=== PATIENT | female | born 1990 | race Caucasian/White ===

== ENCOUNTER 2017-08-07 13:46 | Emergency (ER) | payer OTHER ==
[~2017-08-07] VITALS: Ht 170.2 cm; Wt 60.8 kg
[~2017-08-07 13:46] MED LIST: ACYCLOVIR400 MG; BACTRIM DS TAB1 EACH PO; CLARITIN10 MG PO; DILAUDID2 MG PO; DOXYCYCLINE HYC50 MG PO; HYDROCODON-ACE1 EA11 PO; HYDROCODON-ACE1 EA13 PO; KEFLEX500 MG PO; NEURONTIN100 MG PO; NORCO 5-325 TA1 EACH PO; PERCOCET 5-3251 EACH PO; PROMETHAZINE HC25 M1 PO; VICOPROFEN 2001 EACH PO; XULANE PATCH1 EACH TD; [UNRECOGNIZED DRUG - OTHER]
[2017-08-07] MEDS ORDERED: BACTROBAN15 GM TOP (14:08)
[2017-08-07] MEDS ORDERED: DURAGESIC1 EACH TD (14:21)
[2017-08-07] MEDS ORDERED: ZANAFLEX4 M1 PO (14:21)
[2017-08-07] MEDS ORDERED: AMITRIPTYLINE H25 MG PO (14:22)
[2017-08-07] MEDS ORDERED: ZONEGRAN100 MG PO (14:22)
[2017-08-07] MEDS ORDERED: TRAZODONE HCL50 MG PO (14:23)
[2017-08-07] MEDS ORDERED: ONDANSETRON ODT8 MG PO (14:24)
== END 2017-08-07 14:30 | disposition home or self-care (01) ==
LOC: ED 13:46
DX: Z48.817 Encounter for surgical aftercare following surgery on the skin and subcutaneous tissue (principal); Z90.49 Acquired absence of other specified parts of digestive tract; Z98.890 Other specified postprocedural states; Z87.891 Personal history of nicotine dependence; Z88.0 Allergy status to penicillin; Z88.1 Allergy status to other antibiotic agents; Z88.8 Allergy status to other drugs, medicaments and biological substances; Z88.5 Allergy status to narcotic agent
CPT/HCPCS: 99283

== ENCOUNTER 2017-11-23 10:45 | Emergency (ER) | payer OTHER ==
[~2017-11-23] VITALS: Ht 170.2 cm; Wt 63.5 kg
--- OUTSIDE RECORDS SUMMARY | ~2017-11-23 | XMS | Encounter Summary ---
Demographics + + + | Address | [address] | | | [place] [address] | + + + | Home Phone | | + + + | Preferred Language | Unknown | + + + | Marital Status | | + + + | Alevism Affiliation | Unknown | + + + | Race | Unknown | + + + | Ethnic Group | Unknown | + + + Author + + + | Author | [facility] | | | and [place] | + + + | Organization | [facility] | | | and [place] | + + + | Address | Unknown | + + + | Phone | Unavailable | + + + Support + + + + + | Name | Relationship | Address | Phone | + + + + + | Mg Saunders | ECON | [address] | | | | | [place] | | | | | [address] | | + + + + + Care Team Providers + +------+ + | Care Manager Rn Case Name | Role | Phone | + +------+ + | Denis Starks DO | PCP | | + +------+ + Reason for Visit + + + | Reason | Comments | + + + | Medication Refill | | + + + Encounter Details +--------+--------+ + + + | Date | Type | Department | Care Team | Description | +--------+--------+ + + + | 10/02/ | Refill | [facility] | Daljit Roman, | Medication Refill | | 2017 | | [address] | DO [address] | | | | | [address] | [address] [place], | | | | | [place] | [place] [address] | | | | | [address] | [phone] | | | | | [phone] | | | +--------+--------+ + + + Social History + +-------+ +--------+------+ | Tobacco Use | Types | Packs/Day | Years | Date | | | | | Used | | + +-------+ +--------+------+ | Never Smoker | | | | | + +-------+ +--------+------+ + +---+---+---+ | Smokeless Tobacco: | | | | | Never Used | | | | + +---+---+---+ + + +---------+ + | Alcohol Use | Drinks/We | oz/Week | Comments | | | ek | | | + + +---------+ + | No | | | | + + +---------+ + + + + | Sex Assigned at | Date Recorded | | | | + + + | Not on file | | + + + as of this encounter Functional Status + + + + | Functional Status | Response | Date of Assessment | + + + + | Are you deaf or do you have serious | No | 07/31/2017 | | difficulty hearing? | | | + + + + | Are you blind or do you have serious | No | 07/31/2017 | | difficulty seeing, even when wearing | | | | glasses? | | | + + + + | Do you have serious difficulty walking or | No | 07/31/2017 | | climbing stairs? (5 years old or older) | | | + + + + | Do you have difficulty dressing or bathing? | No | 07/31/2017 | | (5 years old or older) | | | + + + + | Because of a physical, mental, or emotional | No | 07/31/2017 | | condition, do you have difficulty doing | | | | errands alone such as visiting a doctor's | | | | office or shopping? [15 years old or | | | | older)] | | | + + + + + + + + | Cognitive Status | Response | Date of Assessment | + + + + | Because of a physical, mental, or emotional | No | 07/31/2017 | | condition, do you have serious difficulty | | | | concentrating, remembering, or making | | | | decisions? (5 years old or older) | | | + + + + as of this encounter Plan of Treatment Not on fileas of this encounter Visit Diagnoses + + | Diagnosis | + + | S/P spinal fusion | + + | Arthrodesis status | + +"
--- OUTSIDE RECORDS SUMMARY | ~2017-11-23 | XMS | Encounter Summary ---
Demographics + + + | Address | [address] | | | [place] [address] | + + + | Home Phone | | + + + | Preferred Language | Unknown | + + + | Marital Status | | + + + | Jain Affiliation | Unknown | + + + | Race | Unknown | + + + | Ethnic Group | Unknown | + + + Author + + + | Author | [facility] | | | and [place] | + + + | Organization | [facility] | | | and [place] | [...] [place] | | | | | [address] | | + + + + + Care Team Providers + +------+ + | Care [place] Grounds Superintendent Name | Role | Phone | + [...] Description | +--------+--------+ + + + | 09/03/ | Refill | [facility] | Daljit Roman, | Medication Refill | | 2017 | | [address] | DO [address] | | | | | [address] | [address] [place], | | | | | [place] | [place] [address] | | | | | [address] | [phone] | | | | | [phone] | | | +--------+--------+ + + + [...]
--- OUTSIDE RECORDS SUMMARY | ~2017-11-23 | XMS | Encounter Summary ---
Demographics + + + | Address | [address] | | | [place] [address] | + + + | Home Phone | | + + + | Preferred Language | Unknown | + + + | Marital Status | | + + + | Yazidi Affiliation | Unknown | + + + | Race | Unknown | + + + | Ethnic Group | Unknown | + + + Author + + + | Author | [facility] | | | and [place] | + + + | Organization | [facility] | | | and [place] [...] [place] | | | | | [address] | | + + + + + Care Team Providers + +------+ + | Care Radiology Specialist Name | Role | Phone | + +------+ + | Denis Starks DO | PCP | | + +------+ + Reason for Visit + + + | Reason | Comments | + + + | Lab Results | return call | + + + Encounter Details +--------+ + + + + | Date | Type | Department | Care Team | Description | +--------+ + + + + | 11/04/ | Telephone | [facility] | Ronnie Schultz MD | Lab Results (return | | 2018 | | [facility] | [address] | call ) | | | | CLINIC [address] | [place] | | | | | [address] [place], | [address] | | | | | [place] [address] | | | | | | [phone] | | | +--------+ + + + [...] on fileas of this encounter Visit Diagnoses Not on filein this encounter"
--- OUTSIDE RECORDS SUMMARY | ~2017-11-23 | XMS | Clinical Summary ---
Demographics + + + | Address | [address] | | | [place] [address] | + + + | Home Phone | | + + + | Preferred Language | Unknown | + + + | Marital Status | | + + + | Tenriism Affiliation | Unknown | + + + | Race | Unknown | + + + | Ethnic Group | Unknown | + + + Author + + + | Author | [facility] | | | and [place] | + + + | Organization | [facility] | | | and [place] | + + + | Address | Unknown | + + + | Phone | Unavailable | + + + Support + + + + + | Name | Relationship | Address | Phone | + + + + + | Mg Rodriguez | ECON | [address] | | | | | [place] | | | | | [phone] | | + + + + + Care Team Providers + +------+ + | Care Visual Basic Programmer Name | Role | Phone | + +------+ + | Denis Starks DO | PP | | + +------+ + Allergies + + + + + + | Active Allergy | Reactions | Severity | Noted | Comments | | | | | Date | | + + + + + + | Ciprofloxacin | Anaphylaxis | High | 11/12/19 | | | | | | 15 | | + + + + + + | Duloxetine | Rash | Medium | 06/05/20 | Burning sensation | | | | | 16 | on her face | + + + + + + | Erythromycin | Rash | Low | 11/12/19 | | | | | | 15 | | + + + + + + | Hydromorphone | Other (See Comments) | Medium | 11/12/19 | Headaches from the | | | | | 15 | pill form tolerates | | | | | | IV form | + + + + + + | Morphine | Other (See Comments) | Medium | 11/12/19 | Chest pain and | | | | | 15 | stomach pain from | | | | | | the pill form. IV | | | | | | form can tolerate | | | | | | but doesn't really | | | | | | work for her. | + + + + + + | Penicillins | Anaphylaxis | High | 11/12/19 | | | | | | 15 | | + + + + + + | Propofol | Other (See Comments) | High | 11/12/19 | Seizures. Pt | | | | | 15 | states she recently | | | | | | had propofol with no | | | | | | side effects or | | | | | | reaction. | + + + + + + | Vancomycin | Daniel, Other (See | Medium | 11/12/19 | Burning feels like | | | Comments) | | 15 | head is on fire | + + + + + + Current Medications + + + +---------+------+------+-------+ | Prescription | Sig. | Disp. | Refills | Star | End | Statu | | | | | | t | Date | s | | | | | | Date | | | + + + +---------+------+------+-------+ | SUMAtriptan | Take 100 mg by mouth | | | | | Activ | | (IMITREX) 100 mg | as needed for | | | | | e | | tablet | Migraine. | | | | | | + + + +---------+------+------+-------+ | zonisamide | Take 100 mg by mouth | | | /2 | | Activ | | (ZONEGRAN) 100 mg | 4 times daily. | | | 11/29 | | e | | capsule | | | | 17 | | | + + + +---------+------+------+-------+ | VENTOLIN HFA 108 | Inhale into the | | | 06/13 | | Activ | | (90 BASE) MCG/ACT | lungs every 4 hours | | | 08/31 | | e | | inhaler | as needed. | | | 16 | | | + + + +---------+------+------+-------+ | acyclovir | Apply topically as | | | 02/0 | | Activ | | (ZOVIRAX) 5% | needed. | | | 05/01 | | e | | ointment | | | | 17 | | | + + + +---------+------+------+-------+ | nortriptyline | Take 25 mg by mouth | | | | | Activ | | (PAMELOR) 25 mg | 3 times daily. | | | | | e | | capsule | | | | | | | + + + +---------+------+------+-------+ | TRAZODONE HCL PO | Take by mouth as | | | | | Activ | | | needed. | | | | | e | + + + +---------+------+------+-------+ | tiZANidine | Take 1-2 tablets by | 90 | 0 | 12/2 | | Activ | | (ZANAFLEX) 4 mg | mouth every 8 hours. | tablet | | 0/20 | | e | | tablet | | | | 17 | | | + + + +---------+------+------+-------+ | ondansetron | Take 4 mg by mouth 3 | | | 01/2 | | Activ | | (ZOFRAN) 8 MG tablet | times daily. | | | 5/20 | | e | | | | | | 18 | | | + + + +---------+------+------+-------+ | polyethylene | Take 175 g by mouth | | | 02/0 | | Activ | | glycol (MIRALAX) | 2 times daily. | | | 4/20 | | e | | powder | | | | 18 | | | + + + +---------+------+------+-------+ | lactulose 10 g/15 | Take 30 mLs by mouth | 240 mL | 2 | 03/3 | | Activ | | mL solution | 2 times daily. For | | | 0/20 | | e | | | constipation | | | 18 | | | + + + +---------+------+------+-------+ | | Take 1 tablet by | 56 | 0 | 04/0 | 04/2 | Activ | | HYDROcodone-acetamin | mouth every 6 hours | tablet | | 9/20 | 3/20 | e | | ophen (NORCO) 10-325 | as needed for Pain | | | 18 | 18 | | | mg per | for up to 14 days. | | | | | | | tabletIndications: | | | | | | | | S/P spinal fusion | | | | | | | + + + +---------+------+------+-------+ | lactulose 10 g/15 | Take 30 mLs by mouth | 240 mL | 2 | 12/2 | 03/3 | Disco | | mL solution | 2 times daily. For | | | 0/20 | 0/20 | ntinu | | | constipation | | | 17 | 18 | ed | + + + +---------+------+------+-------+ | | Take 1-2 tablets by | 120 | 0 | 03/0 | 03/2 | Disco | | HYDROcodone-acetamin | mouth every 4 hours | tablet | | 7/20 | 0/20 | ntinu | | ophen (NORCO) 10-325 | as needed for Pain. | | | 18 | 18 | ed | | mg per | | | | | | | | tabletIndications: | | | | | | | | S/P spinal fusion | | | | | | | + + + +---------+------+------+-------+ | | Take 1-2 tablets by | 120 | 0 | 03/2 | 04/0 | Disco | | HYDROcodone-acetamin | mouth every 4 hours | tablet | | 0/20 | 3/20 | ntinu | | ophen (NORCO) 10-325 | as needed for Pain. 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 Rivers 02/03/13.Dx name changed | | by system update 05/03/2017 | | | |Dx name changed by system update 05/03/2017 | + + + + + | Degeneration of lumbar or lumbosacral intervertebral disc | 02/23/2013 | + + + + + | Overview: Overview: | | per Karen Rivers) | + + + + + | Thoracic neuritis | 02/23/2013 | + + + + + | Overview: Overview: | | per Ortho Gamaliel Rivers) | + + + + + | Pain in joint, lower leg | 12/24/2012 | + + + | Calculus of kidney | 07/15/2012 | + + + + + | Overview: Overview: Suspected renal colic during , | | severe back pains assoc w/ hematuria. | + + Encounters +--------+ + + + + | Date | Type | Specialty | Care Team | Description | +--------+ + + + + | 11/20/ | Office | | Richard Saravia | Chronic pain | | 2018 | Visit | | SONIA Davidson | syndrome (Primary | | | | | | Dx); Lumbar | | | | | | spondylosis; | | | | | | Thoracic spinal | | | | | | stenosis; Back pain, | | | | | | unspecified back | | | | | | location, | | | | | | unspecified back | | | | | | pain laterality, | | | | | | unspecified | | | | | | chronicity; | | | | | | Degeneration of | | | | | | lumbar or | | | | | | lumbosacral | | | | | | intervertebral disc; | | | | | | Neuropathy | +--------+ + + + + | 11/20/ | Refill | | Ronnie Schultz MD | Medication Refill | | 2017 | | | | | +--------+ + + + + | 11/18/ | Telephone | | Daljit Roman, | Coordination Of Care | | 2018 | | | DO | (Neurologist/ pain | | | | | | management) | +--------+ + + + + | 11/12/ | Refill | | Ronnie Schultz MD | Medication Refill | | 2017 | | | | | +--------+ + + + + | 11/08/ | Office | | Aman Menezes, | Jona (Primary Dx) | | 2017 | Visit | | PA | | +--------+ + + + + | 11/06/ | Telephone | | Ronnie Schultz MD | Pain Management | | 2017 | | | | | +--------+ + + + + | 11/04/ | Telephone | | Ronnie Schultz MD | Lab Results (return | | 2017 | | | | call ) | +--------+ + + + + | 10/29/ | Office | | Daljit Roman, | Thoracic myelopathy | | 2018 | Visit | | DO | (Primary Dx); S/P | | | | | | fusion of thoracic | | | | | | spine; S/P spinal | | | | | | fusion | +--------+ + + + + | 10/29/ | Hospital | | Aman Menezes, | S/P fusion of | | 2017 | Encounter | | PA | thoracic spine | +--------+ + + + + | 10/16/ | Refill | | Daljit Roman, | Medication Refill | | 2017 | | | DO | | +--------+ + + + + | 10/14/ | Telephone | | Daljit Roman, | Post-op Problem | | 2017 | | | DO | | +--------+ + + + + | 10/02/ | Refill | | Daljit Roman, | Medication Refill | | 2017 | | | DO | | +--------+ + + + + | 09/24/ | Office | | Ronnie Schultz MD | Degeneration of | | 2018 | Visit | | | lumbar or | | | | | | lumbosacral | | | | | | intervertebral disc | | | | | | (Primary Dx); Lumbar | | | | | | spondylosis; | | | | | | Chronic pain | | | | | | syndrome | +--------+ + + + + | 09/17/ | Refill | | Daljit Roman, | Medication Refill | | 2017 | | | DO | | +--------+ + + + + | 09/03/ | Refill | | Daljit Roman, | Medication Refill | | 2017 | | | DO | | +--------+ + + + + | 08/28/ | Office | | Aman Menezes, | S/P fusion of | | 2018 | Visit | | PA | thoracic spine | | | | | | (Primary Dx) | +--------+ + + + + | 08/28/ | Hospital | | Daljit Roman, | Status post cervical | | 2018 | Encounter | | DO | spinal fusion; | | | | | | Cervical | | | | | | radiculopathy | +--------+ + + + + | 08/28/ | Hospital | | Daljit Roman, | Status post thoracic | | 2018 | Encounter | | DO | spinal fusion; | | | | | | Spondylosis with | | | | | | myelopathy, thoracic | | | | | | region | +--------+ + + + + from Last 3 Months Immunizations + + + + | Name | Dates Previously Given | Next Due | + + + + | INFLUENZA PF | 06/08/2015 | | | QUAD(PED/ADOL/ADULT) | | | | ,PSKT or VIAL | | | + + + + Family History + + +------+ + | Medical History | Relation | Name | Comments | + + +------+ + | Diabetes | Father | | | + + +------+ + | Arthritis | Mother | | | + + +------+ + | Cancer | Mother | | | + + +------+ + | Crohn's disease | Mother | | | + + +------+ + | Heart disease | Mother | | and Father | + + +------+ + | Hypertension | Mother | | and Father | + + +------+ + | Stroke | Mother | | | + + +------+ + + +------+--------+ + | Relation | Name | Status | Comments | + +------+--------+ + | Father | | | | + +------+--------+ + | Mother | | | | + +------+--------+ + Social History + +-------+ +--------+------+ | [...] on file | | + + + Last Filed Vital Signs + + + + | Vital Sign | Reading | Time Taken | + + + + | Blood Pressure | 104/60 | 11/20/2017 1329 PDT | + + + + | Pulse | 108 | 11/20/2017 1329 PDT | + + + + | Temperature | 35.7 C (96.2 F) | 08/08/2017 1315 PST | + + + + | Respiratory Rate | 16 | 11/20/20171328 PDT | + + + + | Oxygen Saturation | 100% | 11/20/20171328 PDT | + + + + | Inhaled Oxygen | - | - | | Concentration | | | + + + + | Weight | 62.1 kg (137 lb) | 11/20/20171328 PDT | + + + + | Height | 170.2 cm (5' 7") | 11/20/20171328 PDT | + + + + | Body Mass Index | 21.46 | 11/20/20171328 PDT | + + + + Plan of Treatment + + + + + | Health Maintenance | Due Date | Last Done | Comments | + + + + + | Vaccine: HPV (3 of 3 | | 01/12/2013, 10/29/2012 | | | - Female 3 Dose | 3 | | | | Series) | | | | + + + + + | CERVICAL CANCER | | | | | SCREENING (PAP EVERY | 4 | | | | 3 YEARS 21-64 ) | | | | + + + + + | Vaccine: Influenza | | 12/26/2016, 06/08/2015, | | | (Season Ended) | 8 | 05/22/2012 | | + + + + + | Vaccine: | | 07/27/2013 | | | Dtap/Tdap/Td (2 - | 3 | | | | Td) | | | | + + + + + Implants + +--------+--------+ +--------+--------+--------+ | Implanted | Type | Area | Manufacture | Device | Expira | Model | | | | | r | | tion | / | | | | | | Identi | Date | Serial | | | | | | fier | | / Lot | + +--------+--------+ +--------+--------+--------+ | Putty Bone Dbm Grftn 0.5cc - | Bone | N/A: | [employer] - | | 08/29/ | [id number] | | [id number]: Qty: 1 on | | Spine | MEDT | | 2019 | | | 12/14/2016 by Daljit Roman | | Max | | | | /[id number] | | DO Silvina | | al | | | | 7-162 | | | | | | | | / | + +--------+--------+ +--------+--------+--------+ | Putty Bone Dbm Grftn 0.5cc - | Bone | N/A: | [employer] - | | 08/29/ | [id number] | | [id number]: Qty: 1 on | | Spine | MEDT | | 2019 | | | 12/14/2016 by Daljit Roman | | Cervic | | | | /[id number] | | DO Silvina | | al | | | | 7-155 | | | | | | | | / | + +--------+--------+ +--------+--------+--------+ | Bone Canc 6-10mm 30cc - | Bone | N/A: | [employer] - | | 11/30/ | [id number] | | [id number]: Qty: 1 | | Thorac | MEDT | | 2021 | | | on 07/26/2017 by Abel, | | ic | | | | /[id number] | | Daljit Cool DO | | | | | | 4-022 | | | | | | | | / | + +--------+--------+ +--------+--------+--------+ | Imp Spn Elizabeth Peek [id number] - | Generi | N/A: | [employer] - | | 03/23/ | [id number] | | [id number]: Qty: 1 | c | Spine | MEDT | | 2023 | 1 / | | on 12/14/2016 by Abel, | | Cervic | | | | /12CG | | Daljit Cool DO | | al | | | | | + +--------+--------+ +--------+--------+--------+ | Imp Spn Elizabeth Peek [id number] - | Generi | N/A: | [employer] - | | 04/27/ | [id number] | | [id number]: Qty: 1 | c | Spine | MEDT | | 2023 | 1 / | | on 12/14/2016 by Abel, | | Cervic | | | | /67CM | | Daljit Cool DO | | al | | | | | + +--------+--------+ +--------+--------+--------+ | Imp Spn Spcr Cpstn 7x22mm - | Generi | N/A: | [employer] - | | 10/02/ | [id number] | | [id number]: Qty: 1 on | c | Thorac | MEDT | | 2024 | 2 / | | 07/26/2017 by Daljit Roman | | ic | | | | /[id number] | | DO Silvina | | | | | | 432 | + +--------+--------+ +--------+--------+--------+ | Imp Spn Spcr Cpstn 7x22mm - | Generi | N/A: | [employer] - | | 12/13/ | 147867 | | [id number]: Qty: 1 on | c | Thorac | MEDT | | 2023 | 2 / | | 07/26/2017 by Daljit Roman | | ic | | | | /[id number] | | A, DO | | | | | | 374 | + +--------+--------+ +--------+--------+--------+ | Imp Spn [address] 4.01x694ss - | Generi | N/A: | [employer] - | | | 179730 | | [id number]: Qty: 2 on | c | Thorac | MEDT | | | 6130 / | | 07/26/2017 by Daljit Roman | | ic | | | | / | | A, DO | | | | | | | + +--------+--------+ +--------+--------+--------+ | Putty Kaitlyn 10cc Dbm - | Graft | N/A: | [employer] - | | 05/15/ | [id number] | | [id number]: Qty: 1 | | Thorac | MEDT | | 2020 | | | on 07/26/2017 by Abel, | | ic | | | | /[id number] | | Daljit Cool DO | | | | | | 4-013 | | | | | | | | / | + +--------+--------+ +--------+--------+--------+ | Graft Infuse Bone Kit Xs - | Graft | N/A: | [employer] - | | 08/11/ | [id number] | | [id number]: Qty: 1 on | | Thorac | MEDT | | 2017 | 0 / | | 07/26/2017 by Daljit Roman | | ic | | | | /[id number] | | DO Silvina | | | | | | 29AAM | + +--------+--------+ +--------+--------+--------+ | Plate Ant Buhl Masoud | Plate | N/A: | [employer] - | | | [id number] | | 42.5mm - [id number]: | | Spine | MEDT | | | 2 / / | | Qty: 1 on 12/14/2016 by | | Max | | | | | | Daljit Roman DO | | al | | | | | + +--------+--------+ +--------+--------+--------+ | Screw Slf-Drl V/A 4.0x14mm - | Screw | N/A: | [facility] | | | [id number] | | [id number]: Qty: 6 on | | Spine | JADEEK - DIV | | | 4 / / | | 12/14/2016 by Daljit Roman | | Cervic | [employer] | | | | | A, DO | | al | - SFDK | | | | + +--------+--------+ +--------+--------+--------+ | Screw Eder Solera 5.5x40mm - | Screw | N/A: | [employer] - | | | 143930 | | [id number]: Qty: 1 on | | Thorac | MEDT | | | 75278 | | 07/26/2017 by Daljit Roman | | ic | | | | / / | | A, DO | | | | | | | + +--------+--------+ +--------+--------+--------+ | Screw Eder Solera 5.5x45mm - | Screw | N/A: | [employer] - | | | 799512 | | [id number]: Qty: 3 on | | Thorac | MEDT | | | 30666 | | 07/26/2017 by Daljit Roman | | ic | | | | / / | | A, DO | | | | | | | + +--------+--------+ +--------+--------+--------+ | Screw Mas G5 Slra 7.5x40 Cn - | Screw | N/A: | [employer] - | | | 424908 | | [id number]: Qty: 1 | | Thorac | MEDT | | | 35463 | | on 07/26/2017 by Abel, | | ic | | | | / / | | Daljit Cool DO | | | | | | | + +--------+--------+ +--------+--------+--------+ | Screw Eder Solera 6.5x40mm - | Screw | N/A: | [employer] - | | | 321311 | | [id number]: Qty: 1 on | | Thorac | MEDT | | | 02568 | | 07/26/2017 by Daljit Roman | | ic | | | | / / | | DO Silvina | | | | | | | + +--------+--------+ +--------+--------+--------+ | Screw Eder Solera 6.5x45mm - | Screw | N/A: | [employer] - | | | 118241 | | [id number]: Qty: 1 on | | Thorac | MEDT | | | 25967 | | 07/26/2017 by Daljit Roman | | ic | | | | / / | | A DO | | | | | | | + +--------+--------+ +--------+--------+--------+ | Set Scrw Ns G5 Brk Off Ti | Screw | N/A: | [employer] - | | | 695057 | | 4.75 - [id number]: | | Thorac | MEDT | | | 0 / / | | Qty: 10 on 07/26/2017 by | | ic | | | | | | Daljit Roman DO | | | | | | | + +--------+--------+ +--------+--------+--------+ | Chips Cancellous 15cc - | | N/A: | [employer] - | | 09/08/ | 329798 | | [id number]: Qty: 1 | | Back | OSTT | | 2020 | | | on 12/16/2014 by Abel, | | | | | | /[id number] | | Daljit Cool DO | | | | | | 0-036 | | | | | | | | / | + +--------+--------+ +--------+--------+--------+ | Screw Slra Johant 7.5.55 - | | N/A: | [employer] - | | | 028088 | | [id number]: Qty: 1 on | | Back | MEDT | | | 20262 | | 12/16/2014 by Daljit Roman | | | | | | / / | | A, DO | | | | | | | + +--------+--------+ +--------+--------+--------+ | Imp Spn Nicholas Sext Ti | | N/A: | [facility] | | | 405278 | | 4.63lixf25 - | | Back | DANEK - DIV | | | 5070 / | | [id number]: Qty: 1 on | | | [employer] | | | / | | 12/16/2014 by Daljit Roman | | | - SFDK | | | | | Silvina DO | | | | | | | + +--------+--------+ +--------+--------+--------+ | Imp Spn Nicholas Sext Ti 4.60u38ye | | N/A: | [facility] | | | 121501 | | - [id number]: Qty: 1 | | Back | DANEK - DIV | | | 5075 / | | on 12/16/2014 by Abel, | | | [employer] | | | / | | Daljit Cool DO | | | - SFDK | | | | + +--------+--------+ +--------+--------+--------+ | Set Scrw Ns G5 Brk Off Ti | | N/A: | [facility] | | | 277187 | | 4.75 - [id number]: | | Back | DANEK - DIV | | | 0 / / | | Qty: 5 on 12/16/2014 by | | | [employer] | | | | | Daljit Roman DO | | | - SFDK | | | | + +--------+--------+ +--------+--------+--------+ | Chips Cancellous 15cc - | | N/A: | [employer] - | | 10/07/ | 272785 | | [id number]: Qty: 1 | | Back | OSTT | | 2020 | | | on 12/16/2014 by Abel, | | | | | | /[id number] | | Daljit Cool DO | | | | | | 8-032 | | | | | | | | / | + +--------+--------+ +--------+--------+--------+ | Graft Infuse Bone Kit Xs - | | N/A: | [facility] | | 01/09/ | 716810 | | [id number]: Qty: 1 on | | Back | DANEK - DIV | | 2016 | 0 / | | 12/16/2014 by Daljit Roman | | | [employer] | | | /[id number] | | DO Silvina | | | - SFDK | | | 47AAD | + +--------+--------+ +--------+--------+--------+ | Imp Spn Spcr [place] [id number] | | N/A: | [employer] - | | 10/14/ | 535469 | | - [id number]: Qty: 1 | | Back | MEDT | | 2022 | 1 / | | on 12/16/2014 by Abel, | | | | | | /[id number] | | Daljit Cool DO | | | | | | 018 | + +--------+--------+ +--------+--------+--------+ | Algyaimat Putty Kaitlyn 5cc Dbm | | N/A: | [facility] - | | 06/07/ | 45173 | | - [id number]: Qty: 1 | | Back | OSTT | | 2016 | /[id number] | | on 12/16/2014 by Abel, | | | | | | 4034 / | | Daljit Cool DO | | | | | | | + +--------+--------+ +--------+--------+--------+ | Chips Cancellous 15cc - | | N/A: | [facility] - | | 10/11/ | 250771 | | [id number]: Qty: 1 | | Back | OSTT | | 2020 | | | on 12/16/2014 by Abel, | | | | | | /[id number] | | Daljit Cool DO | | | | | | 0-010 | | | | | | | | / | + +--------+--------+ +--------+--------+--------+ | Imp Spn Spcr [place] [id number] | | N/A: | [employer] - | | 07/23/ | 153989 | | - [id number]: Qty: 1 | | Back | MEDT | | 2021 | 2 / | | on 12/16/2014 by Abel, | | | | | | /[id number] | | Daljit Cool DO | | | | | | 516 | + +--------+--------+ +--------+--------+--------+ | Screw Eder Solera 6.5x55mm - | | N/A: | [facility] | | | [id number] | | [id number]: Qty: 2 on | | Back | DANEK - DIV | | | 46471 | | 12/16/2014 by Daljit Roman | | | [employer] | | | / / | | DO Silvina | | | - SFDK | | | | + +--------+--------+ +--------+--------+--------+ | Screw Mas G5 Slra 7.5x45 Cn - | | N/A: | [facility] | | | 299791 | | [id number]: Qty: 2 | | Back | DANEK - DIV | | | 08248 | | on 12/16/2014 by Abel, | | | [employer] | | | / / | | Daljit Cool DO | | | - SFDK | | | | + +--------+--------+ +--------+--------+--------+ | Bone Chips 15cc - | | N/A: | [employer] | | 12/02/ | 801971 | | [id number]: Qty: 1 | | Spine | RED CROSS - | | 2020 | | | on 06/03/2015 by Abel, | | Thorac | AMRR | | | /[id number] | | Daljit Cool DO | | ic | | | | 7-017 | | | | | | | | / | + +--------+--------+ +--------+--------+--------+ | Putty [place] 10cc Dbm - | | N/A: | [facility] - | | 03/03/ | 40150 | | [id number]: Qty: 1 | | Spine | OSTT | | 2017 | /[id number] | | on 06/03/2015 by Abel, | | Thorac | | | | 4-013 | | Daljit Cool DO | | ic | | | | / | + +--------+--------+ +--------+--------+--------+ | Graft Infuse Bone Kit Xs - | | N/A: | [facility] | | 05/04/ | 850479 | | [id number]: Qty: 1 on | | Spine | DANEK - DIV | | 2015 | 0 / | | 06/03/2015 by Daljit Roman | | Thorac | [employer] | | | /[id number] | | DO Silvina | | ic | - SFDK | | | 84AAD | + +--------+--------+ +--------+--------+--------+ | Imp Spn Spcr Cpstn 7x22mm - | | N/A: | [facility] | | 12/02/ | [id number] | | [id number]: Qty: 1 on | | Spine | DANEK - DIV | | 2022 | 2 / | | 06/03/2015 by Daljit Roman | | Thorac | [facility] | | | [id number] | | A DO | | ic | - SFDK | | | 208 | + +--------+--------+ +--------+--------+--------+ | Nicholas Perc Str Ccm-Pls 4.81t322 | | N/A: | [facility] - | | | [id number] | | - [id number]: Qty: 1 | | Spine | MEDT | | | 6120 / | | on 06/03/2015 by Abel, | | Thorac | | | | / | | Daljit Cool DO | | ic | | | | | + +--------+--------+ +--------+--------+--------+ | Imp Spn Nicholas Ti Sext Ti 5.5x45 | | N/A: | [facility] | | | [id number] | | - [id number]: Qty: 1 | | Spine | DANEK - DIV | | | 5045 / | | on 06/03/2015 by Abel, | | Thorac | [facility] | | | / | | Daljit Cool DO | | ic | - SFDK | | | | + +--------+--------+ +--------+--------+--------+ | Screw Eder Solera 5.5x35mm - | | N/A: | [facility] - | | | [id number] | | [id number]: Qty: 1 on | | Spine | MEDT | | | 25074 | | 06/03/2015 by Daljit Roman | | Thorac | | | | / / | Daniela Cool DO | | ic | | | | | + +--------+--------+ +--------+--------+--------+ | Screw Eder Solera 5.5x40mm - | | N/A: | [facility] | | | [id number] | | [id number]: Qty: 1 on | | Spine | DANEK - DIV | | | [id number] | | 06/03/2015 by Daljit Roman | | Thorac | [facility] | | | / / | | A, DO | | ic | - SFDK | | | | + +--------+--------+ +--------+--------+--------+ | Screw Eder Solera 5.5x45mm - | | N/A: | [facility] | | | [id number] | | [id number]: Qty: 3 on | | Spine | DANEK - DIV | | | [id number] | | 06/03/2015 by Daljit Roman | | Thorac | [facility] | | | / / | | A, DO | | ic | - SFDK | | | | + +--------+--------+ +--------+--------+--------+ | Set Scrw Ns G5 Brk Off Ti | | N/A: | [facility] | | | [id number] | | 4.75 - [id number]: | | Spine | DANEK - DIV | | | 0 / / | | Qty: 5 on 06/03/2015 by | | Thorac | [facility] | | | | | Daljit Roman DO | | ic | - SOMDK | | | | + +--------+--------+ +--------+--------+--------+ + +-------+--------+ +--------+--------+--------+ | Explanted | Type | Area | Manufacture | Device | Expira | Model | | | | | r | | tion | / | | | | | | Identi | Date | Serial | | | | | | fier | | / Lot | + +-------+--------+ +--------+--------+--------+ | Screw Eder Solera 6.5x40mm - | Screw | N/A: | [employer] - | | | [id number] | | [id number]: Qty: 1 on | | Thorac | MEDT | | | [id number] | | 07/26/2017 | | ic | | | | / / | + +-------+--------+ +--------+--------+--------+ Results Drugs of Abuse, Screen, Urine (11/20/20171310) + + + + | Component | Value | Ref Range | + + + + | Cannabinoids Screen, | Positive (A) | Negative | | Urine | | | + + + + | Cocaine Screen, | Negative | Negative | | Urine | | | + + + + | Phencyclidine | Negative | Negative | | Screen, Urine | | | + + + + | Methamphetamine | Negative | Negative | | Screen, Urine | | | + + + + | Opiates Screen, | Negative | Negative | | Urine | | | + + + + | Amphetamine Screen, | Negative | Negative | | Urine | | | + + + + | Benzodiazepines, | Negative | Negative | | Urine, Screen | | | + + + + | TCA | Positive (A) | Negative | + + + + | Methadone Screen, | Negative | Negative | | Urine | | | + + + + | Barbiturates Screen, | Negative | Negative | | Urine | | | + + + + | Oxycodone Screen, | Negative | Negative | | Urine | | | + + + + | Propoxyphene Screen, | Negative | Negative | | Urine | | | + + + + | Buprenorphine | Negative | Negative | | screen, Urine | | | + + + + + + + | Specimen | Performing Laboratory | + + + | Urine | [facility] [address], | | | [place] [address] | + + + + + | Narrative | + + | Urine Drug Screen Threshold concentrations | | AMPHETAMINE 500 ng/mL | | BARBITURATES 200 ng/mL | | BENZODIAZEPINES 150 ng/mL | | BUPRENORPHINE 10 ng/mL | | COCAINE 150 ng/mL | | METHAMPHETAMINES 500 ng/mL | | METHADONE 200 ng/mL | | OPIATES 100 ng/mL | | OXYCODONE 100 ng/mL | | PHENCYCLIDINE 25 ng/mL | | PROPOXYPHENE 300 ng/mL | | CANNABINOIDS 50 ng/mL TRICYCLIC | | ANTIDEPRES 300 ng/mL | + + XR Thoracic Spine 3 Vw (10/29/2017 1208) + + | Narrative | + + | TWO VIEWS THORACIC SPINE 10/29/2017 12:08 PM CLINICAL HISTORY: Status post thoracic | | fusion COMPARISON: RADIOGRAPHS AUGUST 28 AND MORE REMOTE IMAGING FINDINGS: | | Leftward thoracic curvature persists. Posterior nicholas and pedicle screw fusion | | hardware persists within five adjacent levels of the upper to mid thoracic spine and | | appears stable and intact. Interbody prostheses persist at three of these levels and | | also appear stable. Vertebral height is maintained and no spondylolisthesis is | | evident. Imaged thoracic cage is unremarkable. Cholecystectomy clips are again | | suggested. Imaged intrathoracic and upper abdominal structures are otherwise | | unremarkable. IMPRESSION - 1. LEFTWARD THORACIC CURVATURE WITH STABLE CHANGES OF | | UPPER TO MID THORACIC FUSION. Dictated and Signed by: Flash García MD | | Electronically signed: 10/29/2017 1:08 PM | + + + + | Procedure Note | + + | Yash, Rad Results In - 10/29/2017 1311 PDT TWO VIEWS THORACIC SPINE 10/29/2017 12:08 PM | | | | CLINICAL HISTORY: Status post thoracic fusion | | | | COMPARISON: RADIOGRAPHS AUGUST 28 AND MORE REMOTE IMAGING | | | | FINDINGS: Leftward thoracic curvature persists. Posterior nicholas and pedicle screw | | fusion hardware persists within five adjacent levels of the upper to mid | | thoracic spine and appears stable and intact. Interbody prostheses persist at | | three of these levels and also appear stable. Vertebral height is maintained | | and no spondylolisthesis is evident. Imaged thoracic cage is unremarkable. | | Cholecystectomy clips are again suggested. Imaged intrathoracic and upper | | abdominal structures are otherwise unremarkable. | | | | IMPRESSION - | | 1. LEFTWARD THORACIC CURVATURE WITH STABLE CHANGES OF UPPER TO MID THORACIC | | FUSION. | | | | Dictated and Signed by: Flash García MD | | Electronically signed: 10/29/2017 1:08 PM | + + XR Cervical Spine 2 or 3 Views (08/28/2017 1411) + + | Narrative | + + | CLINICAL INFORMATION: S/P Cervical Fusion. COMPARISON: 03/28/2017 FINDINGS: | | AP and lateral views of the cervical spine. Anterior screw plate fusion changes at | | C4-C6 with stable appearance of the interbody graft markers. No evidence of hardware | | complication. Stable cervical spine alignment. Stable height of the vertebral | | bodies. Prevertebral soft tissues have a normal appearance. Thoracic spinal | | fusion changes are noted. IMPRESSION - No evidence of interval complication. | | Dictated and Signed by: Desmond Chambers MD Electronically signed: 08/28/2017 3:01 PM | | | + + + + | Procedure Note | + + | Yash, Rad Results In - 08/28/2017 1504 PST CLINICAL INFORMATION: S/P Cervical Fusion. | | | | COMPARISON: 03/28/2017 | | | | FINDINGS: | | AP and lateral views of the cervical spine. | | | | Anterior screw plate fusion changes at C4-C6 with stable appearance of the | | interbody graft markers. No evidence of hardware complication. | | | | Stable cervical spine alignment. Stable height of the vertebral bodies. | | | | Prevertebral soft tissues have a normal appearance. | | | | Thoracic spinal fusion changes are noted. | | | | | | IMPRESSION - No evidence of interval complication. | | | | Dictated and Signed by: Desmond Chambers MD | | Electronically signed: 08/28/2017 3:01 PM | + + XR Thoracic Spine 2 Vw (08/28/2017 1410) + + | Narrative | + + | CLINICAL INFORMATION: S/P Thoracic Fusion. COMPARISON: 07/26/2017. | | FINDINGS: AP and lateral views of the thoracic spine. Posterior pedicle | | screw and nicholas fusion changes at T3-T7 with stable positioning of the interbody graft | | spacers at T3-T4, T4-T5, and T6-T7. No evidence of hardware complication. Normal | | height of the vertebral bodies. Slight dextrocurvature of the thoracic spine. | | Lower cervical spine fusion changes. IMPRESSION - No evidence of interval | | complication. Dictated and Signed by: Desmond Chambers MD Electronically signed: | | 08/28/2017 2:59 PM | + + + + | Procedure Note | + + | Williams Berrios Results In - 08/28/2017 1502 PST CLINICAL INFORMATION: S/P Thoracic Fusion. | | | | COMPARISON: 07/26/2017. | | | | FINDINGS: | | AP and lateral views of the thoracic spine. | | | | Posterior pedicle screw and nicholas fusion changes at T3-T7 with stable positioning | | of the interbody graft spacers at T3-T4, T4-T5, and T6-T7. No evidence of | | hardware complication. | | | | Normal height of the vertebral bodies. Slight dextrocurvature of the thoracic | | spine. | | | | Lower cervical spine fusion changes. | | | | | | IMPRESSION - No evidence of interval complication. | | | | Dictated and Signed by: Desmond Chambers MD | | Electronically signed: 08/28/2017 2:59 PM | + + from Last 3 Months Insurance + +--------+ +--------+ +---------+ | Payer | Benefi | Subscriber | Type | Phone | Address | | | t Plan | ID | | | | | | / | | | | | | | Group | | | | | + +--------+ +--------+ +---------+ | [employer] | MODA | xxxxxxxx | Medica | +- | | | MEDICAID HMO | HEALTH | | id | [id number] | | | | [place] | | | | [place] | | | | | + +--------+ +--------+ +---------+ | [employer] | MODA | [id number] | Medica | +- | | | MEDICAID HMO | HEALTH | | id | [id number] | | | | [place] | | | | | | [place] | | | | | + +--------+ +--------+ +---------+ + +--------+ +--------+ + + | Guarantor Name | Accoun | Relation to | Date | Phone | Billing Address | | | t Type | Patient | of | | | | | | | | | | + +--------+ +--------+ + + | YING RODRIGUEZ | Person | Self [birth year] Home: | [address] | | [place] | al/Fam | | 1990 | [phone] | [place], [place] | | | hernandez | | | [phone] | [phone] | + +--------+ +--------+ + + | YING RODRIGUEZ | Person | Self [birth year] | Home: | [address] | | [place] | al/Fam | | 1990 | [phone] | [place], [place] | | | [place]nandez | | | [phone] | [phone] | + +--------+ +--------+ + +
--- OUTSIDE RECORDS SUMMARY | ~2017-11-23 | XMS | Encounter Summary ---
Demographics + + + | Address | [address] | | | [place] [address] | + + + | Home Phone | | + + + | Preferred Language | Unknown | + + + | Marital Status | | + + + | Zoroastrianism Affiliation | Unknown | + + + | Race | Unknown | + + + | Ethnic Group | Unknown | + + + Author + + + | Author | [facility] | | | and [place] | + + + | Organization | [facility] | | | and [place] [...] [place] | | | | | [address] | | + + + + + Care Team Providers + +------+ + | Care Commercial Tire Service Technician Name | Role | Phone | + +------+ + | Denis Starks DO | PCP | | + +------+ + Reason for Visit + + + | Reason | Comments | + + + | Post-op Problem | | + + + Encounter Details +--------+ + + + + | Date | Type | Department | Care Team | Description | +--------+ + + + + | 10/14/ | Telephone | [facility] | Daljit Roman, | Post-op Problem | | 2018 | | NEUROSURGERY [address] | DO [address] | | | | | [address] | [address] [place], | | | | | [place], [place] | [place] [address] | | | | | [address] | [phone] | | | | | [phone] | | | +--------+ + + + [...]
--- OUTSIDE RECORDS SUMMARY | ~2017-11-23 | XMS | Encounter Summary ---
Demographics + + + | Address | [address] | | | [place] [address] | + + + | Home Phone [...] Author | [facility] | | | and [place] | + + + | Organization | [facility] | | | and [place] [...] [place] | | | | | [address] | | + + + + + Care Team Providers + +------+ + | Care Shaker Washer Name | Role | Phone | + +------+ + | Denis Starks DO | PCP | | + +------+ + Reason for Visit + + + | Reason | Comments | + + + | Pain Management | | + + + Encounter Details +--------+ + + + + | Date | Type | Department | Care Team | Description | +--------+ + + + + | 11/06/ | Telephone | [facility] | Ronnie Schultz MD | Pain Management | | 2018 | | HOSPITAL NEUROLOGY | [address] | | | | | CLINIC [address] | [place] | | | | | [address] [place], | [address] | | | | | [place] [address] | | | | | | [phone] | | | +--------+ + + + [...]
--- OUTSIDE RECORDS SUMMARY | ~2017-11-23 | XMS | Encounter Summary ---
Demographics + + + | Address | [address] | | | [place] [address] | + + + | Home Phone | | + + + | Preferred Language | Unknown | + + + | Marital Status | | + + + | Gnosticism Affiliation | Unknown | + + + | Race | Unknown | + + + | Ethnic Group | Unknown | + + + Author + + + | Author | [facility] | | | and [place] | + + + | Organization | [facility] | | | and [place] | [...] [place] | | | | | [address] | | + + + + + Care Team Providers + +------+ + | Care Digital Controls Technical Officer Name | Role | Phone | + [...] + | 10/14/ | Telephone | [facility] | Daljit Roman, | Post-op Problem | | 2018 | | NEUROSURGERY [address] | DO [address] | | | | | [address] | [address] [place], | | | | | [place], [place] | [place] [address] | | | | | [address] | [phone] | | | | | [phone] | | | +--------+ + + + [...]
--- OUTSIDE RECORDS SUMMARY | ~2017-11-23 | XMS | Encounter Summary ---
Demographics + + + | Address | [address] | | | [place] [address] | + + + | Home Phone | | + + + | Preferred Language | Unknown | + + + | Marital Status | | + + + | Adventism Affiliation | Unknown | + + + | Race | Unknown | + + + | Ethnic Group | Unknown | + + + Author + + + | Author | [facility] | | | and [place] | + + + | Organization | [facility] | | | and [place] [...] [place] | | | | | [address] | | + + + + + Care Team Providers + +------+ + | Care Foundry Melt Supervisor Name | Role | Phone | + +------+ + | Denis Starks DO | PCP | | + +------+ + Encounter Details +--------+ + + + + | Date | Type | Department | Care Team | Description | +--------+ + + + + | 08/28/ | Hospital | [facility] | Daljit Roman, | Status post cervical | | 2018 | Encounter | MED CTR XRAY [address] | DO [address] | spinal fusion; | | | | [place] | [address] [place], | Cervical | | | | [place] [address] | [place] [address] | radiculopathy | | | | [phone] | [phone] | | | | | | | [...] + + + as of this encounter Medications at Time of Discharge + + + +---------+ + + | Medication | Sig. | Disp. | Refills | Start | End Date | | | | | | Date | | + + + +---------+ + + | acyclovir | Apply topically as | | | 09/20/19 | | | (ZOVIRAX) 5% | needed. | | | 17 | | | ointment | | | | | | + + + +---------+ + + | nortriptyline | Take 25 mg by mouth | | | | | | (PAMELOR) 25 mg | 3 times daily. | | | | | | capsule | | | | | | + + + +---------+ + + | SUMAtriptan | Take 100 mg by mouth | | | | | | (IMITREX) 100 mg | as needed for | | | | | | tablet | Migraine. | | | | | + + + +---------+ + + | tiZANidine | Take 1-2 tablets by | 90 | 0 | 07/31/20 | | | (ZANAFLEX) 4 mg | mouth every 8 hours. | tablet | | 17 | | | tablet | | | | | | + + + +---------+ + + | TRAZODONE HCL PO | Take by mouth as | | | | | | | needed. | | | | | + + + +---------+ + + | VENTOLIN HFA 108 | Inhale into the | | | 07/02/20 | | | (90 BASE) MCG/ACT | lungs every 4 hours | | | 16 | | | inhaler | as needed. | | | | | + + + +---------+ + + | zonisamide | Take 100 mg by mouth | | | 09/04/19 | | | (ZONEGRAN) 100 mg | 4 times daily. | | | 17 | | | capsule | | | | | | + + + +---------+ + + | | Take 1-2 tablets by | 120 | 0 | 08/20/19 | | | HYDROcodone-acetamin | mouth every 4 hours | tablet | | 18 | 8 | | ophen (NORCO) 10-325 | as needed for Pain. | | | | | | mg per | | | | | | | tabletIndications: | | | | | | | S/P spinal fusion | | | | | | + + + +---------+ + + | lactulose 10 g/15 | Take 30 mLs by mouth | 240 mL | 2 | 07/31/20 | | | mL solution | 2 times daily. For | | | 17 | 8 | | | constipation | | | | | + + + +---------+ + + as of this encounter Plan of Treatment Not on fileas of this encounter Results XR Cervical Spine 2 or 3 Views (08/28/20171410) + + | Narrative | + + [...] | Williams Berrios Results In - 08/28/2017 1504 PST CLINICAL [...] signed: 08/28/2017 3:01 PM | + + in this encounter Visit Diagnoses + + | Diagnosis | + + | Status post cervical spinal fusion | + + | Arthrodesis status | + + | Cervical radiculopathy | + + | Brachial neuritis or radiculitis nos | + +"
--- OUTSIDE RECORDS SUMMARY | ~2017-11-23 | XMS | Encounter Summary ---
Demographics + + + | Address | [address] | | | [place] [address] | + + + | Home Phone | | + + + | Preferred Language | Unknown | + + + | Marital Status | | + + + | Oriental Orthodox Affiliation | Unknown | + + + | Race | Unknown | + + + | Ethnic Group | Unknown | + + + Author + + + | Author | [facility] | | | and [place] | + + + | Organization | [facility] | | | and [place] [...] [place] | | | | | [address] | | + + + + + Care Team Providers + +------+ + | Care Dental Appliance Mechanic Name | Role | Phone | + [...] [address] | | | | | [place] [address] | | | | | | [phone] | | | +--------+ + + + [...]
--- OUTSIDE RECORDS SUMMARY | ~2017-11-23 | XMS | Encounter Summary ---
Demographics + + + | Address | [address] | | | [place] [address] | + + + | Home Phone | | + + + | Preferred Language | Unknown | + + + | Marital Status | | + + + | Mandaen Affiliation | Unknown | + + + | Race | Unknown | + + + | Ethnic Group | Unknown | + + + Author + + + | Author | [facility] | | | and [place] | + + + | Organization | [facility] | | | and [place] [...] | [place] | | | | | [address] | | + + + + + Care Team Providers + +------+ + | Care Credit Relationship Manager Name | Role | Phone | + +------+ + | Denis Starks DO | PCP | | + +------+ + Reason for Visit + + + | Reason | Comments | + + + | Coordination Of Care | Neurologist/ pain management | + + + Encounter Details +--------+ + + + + | Date | Type | Department | Care Team | Description | +--------+ + + + + | 11/18/ | Telephone | [facility] [place] | Daljit Roman, | Coordination Of Care | | 2018 | | NEUROSURGERY [address] | DO [address] | (Neurologist/ pain | | | | [address] | [address] [place], | management) | | | | [place] | [place] [address] | | | | | [address] | [phone] | | | | | [phone] | | | +--------+ + + + [...]
--- OUTSIDE RECORDS SUMMARY | ~2017-11-23 | XMS | Encounter Summary ---
Demographics + + + | Address | [address] | | | [place] [address] | + + + | Home Phone | | + + + | Preferred Language | Unknown | + + + | Marital Status | | + + + | Mormon Affiliation | Unknown | + + + | Race | Unknown | + + + | Ethnic Group | Unknown | + + + Author + + + | Author | [facility] | | | and [place] | + + + | Organization | [facility] | | | and [...] [place] | | | | | [address] | | + + + + + Care Team Providers + +------+ + | Care Education Reviewer Name | Role | Phone | + +------+ + | Denis Starks DO | PCP | | + +------+ + Encounter Details +--------+---------+ + + + | Date | Type | Department | Care Team | Description | +--------+---------+ + + + | 03/30/ | Office | [facility] | Aman Menezes, | Keloid (Primary Dx) | | 2018 | Visit | NEUROSURGERY [address] | PA [address] | | | | | [address] | [address] [place] | | | | | [place], [place] | [place] [address] | | | | | [address] | [phone] | | | | | [phone] | | | +--------+---------+ + + + [...] + + + | Blood Pressure | 100/60 | 11/08/2017 1024 PDT | + + + + | Pulse | - | - | + + + + | Temperature | - | - | + + + + | Respiratory Rate | 14 | 11/08/20171023 PDT | + + + + | Oxygen Saturation | - | - | + + + + | Inhaled Oxygen | - | - | | Concentration | | | + + + + | Weight | 62.1 kg (137 lb) | 11/08/20171023 PDT | + + + + | Height | 170.2 cm (5' 7") | 11/08/20171023 PDT | + + + + | Body Mass Index | 21.46 | 11/08/2017 1024 PDT | + + + + in [...] of this encounter Instructions Patient Instructions - Aman Menezes PA - 11/08/2017 1030 PDTPlease continue to monito r your activities and pain. My best recommendation is that you follow through with the phys ical therapy that Dr. Roman has recommended. Separate from this, as discussed during our v isit, I am happy to order some lidocaine patches for you which may be of some benefit. My o nly other recommendation would be a possible referral to Dr. Garzon who is a local plastic surgeon and may be able to help address her concern over your scar on the left side over you r thoracic spine.in this encounter Progress Notes Jodie Flower I, Injection Molder - 11/08/2017 1030 PDT Subjective:Patient is overall d oing fair. She had a T3-T7 fusion/revision. This was done on 07/26/17. She presents to our c linic today for hypersensitivity of her incisions and one small area on the left that she fe els will swell and become particularly painful. She is quite a poor historian but states the swelling on the left incision is completely random and not associated with any activity or position. When it does swell she states it can lasts from minutes to days. She denies any fe cristiane or chills and has not noticed any drainage from the incision. Her pain makes it difficul t for her to sleep. She rates the severity as a 7-9/10. It has not been getting worse and beyer s been stable. She has no other C/C. Objectively: Inspection of skin is warm dry and intact. No gross deformity. There is no ev idence of infection. Her lumbar incision are not tender and her back in in general not tende r to palpation. She has significant tenderness to all of her thoracic incisions. However, th ere is a 1 inch area over the left incision that is mildly hyperkeratotic and almost has a m ild keloid appearance. No swelling in this area is appreciated. I compared today's findings with those where she sent us pictures and am unable to appreciate any noticeable difference in their appearance. Assessment: Hypersensitive incisions with a small keloid in the middle of her left incision SP T3-T7 fusion revision Plan: Patient is already on amitriptyline and other medications for her neuropathic pain. I offered her lidocaine patches, but she declined these for now. She does have PT ordered and maybe this along with time will help. I do not have any concerns that there is any active i nfection. If she would like, I have also offered her a referral to see Dr. Roberts in plast ic surgery. She has declined this at this time. The above note was dictated using [employer] voice recognition software. It may have not been p roofread in entirety. Minor errors in grammar may occur. in this encounter Plan of Treatment Not on fileas of this encounter Visit Diagnoses + + | Diagnosis | + + | Keloid - Primary | + + | Keloid scar | + +
--- OUTSIDE RECORDS SUMMARY | ~2017-11-23 | XMS | Encounter Summary ---
Demographics + + + | Address | [address] | | | [place] [address] | + + + | Home Phone | | + + + | Preferred Language | Unknown | + + + | Marital Status | | + + + | Zoroastrian Affiliation | Unknown | + + + | Race | Unknown | + + + | Ethnic Group | Unknown | + + + Author + + + | Author | [facility] | | | and [place] | + + + | Organization | [facility] [...] [place] | | | | | [address] | | + + + + + Care Team Providers + +------+ + | Care Assembler Plastic Boat Name | Role | Phone | + [...] Description | +--------+--------+ + + + | 11/12/ | Refill | [facility] | Ronnie Schultz MD | Medication Refill | | 2017 | | HOSPITAL NEUROLOGY | [address] | | | | | CLIN[address] | [place] | | | | | [address], | [address] | | | | | [place] [address] | | | | | | [phone] | | | +--------+--------+ + + + [...]
--- OUTSIDE RECORDS SUMMARY | ~2017-11-23 | XMS | Encounter Summary ---
Demographics + + + | Address | [address] | | | [place] [address] | + + + | Home Phone | | + + + | Preferred Language | Unknown | + + + | Marital Status | | + + + | Sikh Affiliation | Unknown | + + + | Race | Unknown | + + + | Ethnic Group | Unknown | + + + Author + + + | Author | [facility] | | | and [place] | + + + | Organization | [facility] | | | and [place] | [...] [place] | | | | | [address] | | + + + + + Care Team Providers + +------+ + | Care Epic Interface Analyst Name | Role | Phone | + +------+ + | Denis Starks DO | PCP | | + +------+ + Encounter Details +--------+ + + + + | Date | Type | Department | Care Team | Description | +--------+ + + + + | 10/29/ | [facility] | [facility] | Aman Menezes, | S/P fusion of | | 2018 | Encounter | MED CTR XRAY [address] | [place] [address] | thoracic spine | | | | [place] | [address] [place] | | | | | [place] [address] | [place] [address] | | | | | [phone] | [phone] | | | | | | | [...] + + + +---------+ + + | ondansetron | Take 4 mg by mouth 3 | | | 09/05/19 | | | (ZOFRAN) 8 MG tablet | times daily. | | | 18 | | + + + +---------+ + + | polyethylene | Take 175 g by mouth | | | 09/15/19 | | | glycol (MIRALAX) | 2 times daily. | | | 18 | | | powder | | | | | | + [...] tablets by | 120 | 0 | 10/30/19 | | | HYDROcodone-acetamin | mouth every [...] on fileas of this encounter Results XR Thoracic Spine 3 Vw (10/29/2017 1208) + + | Narrative | + + | TWO VIEWS THORACIC SPINE 10/29/2017 12:08 PM CLINICAL HISTORY: Status post thoracic | | fusion COMPARISON: RADIOGRAPHS AUGUST 28 AND MORE REMOTE IMAGING FINDINGS: | | Leftward thoracic curvature persists. Posterior yifan and pedicle screw fusion | | hardware [...] | FINDINGS: Leftward thoracic curvature persists. Posterior yifan and pedicle screw | | fusion hardware [...] signed: 10/29/2017 1:08 PM | + + in this encounter Visit Diagnoses + + | Diagnosis | + + | S/P fusion of thoracic spine | + +"
--- OUTSIDE RECORDS SUMMARY | ~2017-11-23 | XMS | Encounter Summary ---
Demographics + + + | Address | [address] | | | [place] [address] | + + + | Home Phone | | + + + | Preferred Language | Unknown | + + + | Marital Status | | + + + | Lutheran Affiliation | Unknown | + + + | Race | Unknown | + + + | Ethnic Group | Unknown | + + + Author + + + | Author | [facility] | | | and [place] | + + + | Organization | [facility] | | | and [place] | + [...] [place] | | | | | [address] | | + + + + + Care Team Providers + +------+ + | Care Mask Former Name | Role | Phone | + [...] Description | +--------+--------+ + + + | 10/16/ | Refill | [facility] | Daljit Roman, | Medication Refill | | 2017 | | NEUROSURGERY [address] | DO [address] | | | | | [address] | [address] [place], | | | | | [place], [place] | [place] [address] | | | | | [address] | [phone] | | | | | [phone] | | | +--------+--------+ + + + [...]
--- OUTSIDE RECORDS SUMMARY | ~2017-11-23 | XMS | Encounter Summary ---
Demographics + + + | Address | [address] | | | [place] [address] | + + + | Home Phone | | + + + | Preferred Language | Unknown | + + + | Marital Status | | + + + | Scientology Affiliation | Unknown | + + + | Race | Unknown | + + + | Ethnic Group | Unknown | + + + Author + + + | Author | [facility] | | | and [place] | + + + | Organization | [facility] | | | and [...] [place] | | | | | [address] | | + + + + + Care Team Providers + +------+ + | Care Mobile Security Specialist Name | Role | Phone | + +------+ + | Denis Starks DO | PCP | | + +------+ + Reason for Visit + + + | Reason | Comments | + + + | Follow-up | Fibromyalgia | + + + Encounter Details +--------+---------+ + + + | Date | Type | Department | Care Team | Description | +--------+---------+ + + + | 09/24/ | Office | [facility] | Ronnie Schultz MD | Degeneration of | | 2018 | Visit | [facility] | [address] | lumbar or | | | | CLINIC [address] | [place] | lumbosacral | | | | DR [place], | [address] | intervertebral disc | | | | [place] [address] | | (Primary Dx); Lumbar | | | | [phone] | | spondylosis; | | | | | | Chronic pain | | | | | | syndrome | +--------+---------+ + + + Social [...] + + + | Blood Pressure | 104/72 | 09/24/20171013 PST | + + + + | Pulse | 117 | 09/24/20171013 PST | + + + + | Temperature | - | - | + + + + | Respiratory Rate | 18 | 09/24/20171013 PST | + + + + | Oxygen Saturation | 99% | 09/24/20171013 PST | + + + + | Inhaled Oxygen | - | - | | Concentration | | | + + + + | Weight | 60.7 kg (133 lb 13.1 | 09/24/2017 1014 PST | | | oz) | | + + + + | Height | 170.2 cm (5' 7") | 09/24/20174 PST | + + + + | Body Mass Index | 20.96 | 09/24/20174 PST | + + + + in this [...] of this encounter Instructions Patient Instructions - Ronnie Schultz MD - 09/24/2017 1115 PSTFormatting of this note may be different from the original. Patient Instructions [facility] Neu[facility] Clinic Dr. Ronnie Schultz, Neurologist Date:09/24/2017 Name:Ying Saunders :..1990 Please schedule next follow up appt with Richard Saravia NP in 3-4 months for chronic pain sy ndrome Hx of Cervical, thoracic (times 2) and lumbar spine surgeries Peripheral neuropathy, idiopathic You have the following tests/procedures ordered: No orders of the defined types were placed in this encounter. Treatment Option- massage, Acupuncture, Over the counter heat patches (icy hot, thermacare, salonpas) , over the counter creams (aspercream, bengay cream, emu oi l), Relaxation therapy, Water therapy, Cortisone shots, Toradol Injections Suggest reading newspapers. magazines, perform word find exercises such as cross word puzz le, and scrWanderble, other puzzle games like Zafin, Mogotest. Play computer/mobile applications such as [employer] and [employer] Toradol 60 mg IM for intractable thoracic and low back pain, pain scale 7-8/10 Any Questions please call CORTNEY Colby or Dr. Schultz at [facility] Neurology Clinic Back Pain (Acute or Chronic) Back pain is one of the most common problems. The good news is that most people feel better in 1 to 2 weeks, and most of the rest in 1 to 2 months. Most people can remain active. People experience and describe pain differently; not everyone is the same. The pain can be [...] this case, stretching may make it worse. Avoid prolong sitting, long car rides, or travel. This puts more stress on the lower cony k than standing or walking. During the first [...] are taking other medicines. You may use pmuy-qub-yzajolq medicine as directed on the bottle to [...] may affect your care. Call 911 Call emergency services if any of the following occur: Trouble [...] groin or genital area Date Last Reviewed: 02/10/201619995500-7879 [employer]. [address] [place] [address]. All righ ts reserved. This information is not intended as a substitute for professional medical care. Always follow your healthcare professional's instructions. Pain Management: Chronic You have a painful condition that has required frequent use of opioid pain medicine. Your [facility] provider wants you to receive the best possible care for your problem. To achieve this,you must have apersonal doctor who can supervise a treatment plan for you. You may contact one of the doctors whose name has been given to you. Or you may locate a [facility] doctor on your own. If your doctor [...] that it is advisable. Date Last Reviewed: 10/10/201619995545-7872 [employer]. [address] [place] [address], [place] [address]. All righ ts reserved. This information is not intended as a substitute for professional medical care. Always follow your healthcare professional's instructions. Managing PainAfter Surgery Once you re home after surgery, you may have some pain, since even minor surgery causes s welling and breakdown of tissue. When it comes to managingpain, the tips you may have lear benjamin in the hospital also work at home. To get the best pain relief possible, remember the po ints below. Special note: Be sure to follow any specificpost-surgery instructions from your surgeon o r nurse. Use your medicine only as directed If your pain is not relieved or if it gets worse, call your healthcare provider. If pain lessens, try taking your medicine less often or in smaller doses. Non-pharmacological methods of pain relief are also beneficial and may help your pain me dicine work better. Ask your healthcare provider for suggestions. Remember that medicines need time to work Most pain relievers taken by mouth need at least 20 to 30 minutes to start to work. They may not reach their maximum effect for close to an hour. Take pain medicine at regular times as directed. Don t wait until the pain gets bad to take it. Time your medicine Try to time your medicine so that you take it before starting an activity, such as dress ing or sitting at the table for dinner. Taking your medicine at night may help you get a good night s rest. Eat lots of fruit and vegetables Constipation is a common side effect with some pain medicines. Eating fruit, vegetables, andother foods high in fibercan help. Drink plenty of fluids. Talk to your healthcare provider about taking a preventive bowel regimen. Don'tdrink alcohol while taking pain medicine Mixing alcohol and pain medicine can cause dizziness and slow your respiratory system. I t can even be fatal. Don't drive or usemachinery while taking pain medicines that can cause drowsiness. Note these other precautions Ask your healthcare provider or pharmacist how to get rid of your pain medicines safely when you stop using them. Never share your pain medicines with anyone. Store your medicines in a safe place so they can t be stolen. If you think your medici ne has been stolen or lost, tell your healthcare provider right away. Date Last Reviewed: 12/10/201619995214-9157 [employer]. [address] [place] [address], [place] [address]. All righ ts reserved. This information is not intended as a substitute for professional medical care. Always follow your healthcare professional's instructions. in this encounter Progress Notes Ronnie Schultz MD - 09/24/2017 1030 PSTFormatting of this note may be different from the o riginal. Patient: Ying Saunders Medical Record: [id number] Date of Services: 09/24/2017 Referring Doctor: Denis Starks DO Chief Complaint: Persistent cervical thoracic and lumbosacral spine pain History of Present Illness: Miss Saunders was a 26-year-old right-handed lady, seen for neurologic evaluation, with sig nificant history of cervical thoracic and lumbar spine strain with spasms with previous surg [place]. Her recent surgery was on July 2017 the thoracic spine, which was a second surgery in the initial surgeon 2014. The surgery was performed [facility] with Dr. Barrera enriquez. Her pain syndrome is slightly improved in the thoracic spine to pain but still persist s in the cervical and lumbosacral spine regions. She's presently treated for chronic pain syndrome using Austin 10 / 3 25, 2 tablets every 4 hours for pain management along with tizanidine for spasms, and zonisamide and nortriptyline for neuropathic symptoms. However, given her present medical neurologic problems, patient should be permanent disabled. Her pain scale is usually around 6-710 and today's about 8-9/ 10 and he will be given Toradol 60 mg IM stat dose. I discussed other treatment options such as acupuncture treatments, wacw-ncj-aexztgq creams and patches, cortisone shots, relaxation therapy, and CBD oil used a salve or tincture. She also has significant history migraine headaches, without aura, though stable at this ti me. Review of Systems: Denies headache, earache, nasal catarrh, diplopia, blurring of vision, d ysphagia, odynophagia, sore throat, neck masses, hearing loss, chest pain, palpitations, amberly rtness of breath, cough, hemoptysis, abdominal pain, diarrhea, constipation, bowel or bladde r dysfunction, hematuria, dysuria, lymphadenopathies, echhymoses, rashes, gait ataxia, and h omicidal or suicidal ideations. Present Medication: Current Outpatient Prescriptions Medication Sig Dispense Refill acyclovir (ZOVIRAX) 5% ointment Apply topically as needed. HYDROcodone-acetaminophen (NORCO) 10-325 mg per tablet Take 1-2 tablets by mouth every 4 hours as needed for Pain. 120 tablet 0 lactulose 10 g/15 mL solution Take 30 mLs by mouth 2 times daily. For constipation 240 mL 2 nortriptyline (PAMELOR) 25 mg capsule Take 25 mg by mouth 3 times daily. ondansetron (ZOFRAN) 8 MG tablet Take 4 mg by mouth 3 times daily. polyethylene glycol (MIRALAX) powder Take 175 g by mouth 2 times daily. SUMAtriptan (IMITREX) 100 mg tablet Take 100 [...] No current facility-administered medications for this visit. Patient's Allergies: Allergies Allergen Reactions Ciprofloxacin Anaphylaxis Penicillins Anaphylaxis [...] like head is on fire Erythromycin Rash Neurological Examination: Vitals: 09/24/17 1014 BP: 104/72 Pulse: 117 Resp: 18 PainSc: 9 PainLoc: Back MENTAL STATUS: The patient is awake, alert, and oriented to time, place, and person. Spee is fluent. Memory, attention, comprehension, and general fund of knowledge are intact . CRANIAL NERVES: Funduscopy revealed distinct disc margins. There are no exudates or hemor rhages noted. Pupils are 3-4 mm, equal and reactive to light and accommodation. Extraocular muscle movements are intact. There are no visual field cuts. There is no nystagmus. There is no facial asymmetry. Facial sensation is intact. Palate elevates symmetrically. Streng th in the trapezius and sternocleidomastoid muscles is normal. Tongue is midline on protrusi on. MOTOR EXAMINATION: Strength is 5/5 throughout. Tone is normal. SENSORY EXAMINATION: Intact to light touch, pin prick, vibration, and proprioception. The re is no extinction on double simultaneous stimulation. DEEP TENDON REFLEXES: 2+ and symmetric. PLANTAR RESPONSES: Downgoing bilaterally GAIT: Gait and station are normal. CEREBELLAR EXAMINATION: There is no dysmetria on qmwhpq-qc-vuqk test. MISCELLANEOUS EXAM: Atraumatic, no evidence of frontal or maxillary sinus tenderness, no ne ck masses, tenderness in the paraspinal cervical spine, trapezius, and suprascapular muscles with the decrease with decreased range of motion space on flexion and extension at 5-10, tenderness in the paraspinal lumbosacral spine with increased pain upon flexion and extensio n at 5-10, abdomen is soft and nontender, extremities equally palpable pulses Clinical Impression: Chronic pain syndrome Hx of Cervical, thoracic (times 2), and lumbar spine surgeries, recent thoracic spine surge ry in July 2017 Peripheral neuropathy, idiopathic, as evidenced by impaired sensory modalities and reflexes Plan: Patient Instructions [facility] Neurology Clinic Dr. Ronnie Schultz, Neurologist Date:09/24/2017 Name:Ying Saunders :..1990 Please schedule next follow up appt with Richard Saravia NP in 3-4 months for chronic pain sy ndrome Hx of Cervical, thoracic (times 2) and lumbar spine surgeries Peripheral neuropathy, idiopathic You have the following tests/procedures ordered: No orders of the defined types were placed in this encounter. Treatment Option- massage, Acupuncture, Over the counter heat patches (icy hot, thermacare, salonpas) , over the counter creams (aspercream, bengay cream, emu oi l), Relaxation therapy, Water therapy, Cortisone shots, Toradol Injections Suggest reading newspapers. magazines, perform word find exercises such as cross word puzz le, and scrabble, other puzzle games like Zafin, Mogotest. Play computer/mobile applications such as [employer] and [employer] Any Questions please call CORTNEY Colby or Dr. Schultz at [facility] Neu[facility] Back Pain (Acute or Chronic) Back pain is one of the most common problems. The good news is that most people feel better in 1 to 2 weeks, and most of the rest in 1 to 2 months. Most people can remain active. People experience and describe pain differently; not everyone is the same. The pain can be [...] this case, stretching may make it worse. Avoid prolong sitting, long car rides, or travel. This puts more stress on the lower cony k than standing or walking. During the first [...] are taking other medicines. You may use rkdj-nkj-kfptzkq medicine as directed on the bottle to [...] may affect your care. Call 911 Call emergency services if any of the following occur: Trouble [...] groin or genital area Date Last Reviewed: 02/10/2016 [employer]. [address] [place] [address]. All righ ts reserved. This information is not intended as a substitute for professional medical care. Always follow your healthcare professional's instructions. Pain Management: Chronic You have a painful condition that has required frequent use of opioid pain medicine. Your [facility] provider wants you to receive the best possible care for your problem. To achieve this,you must have apersonal doctor who can supervise a treatment plan for you. You may contact one of the doctors whose name has been given to you. Or you may locate a [facility] doctor on your own. If your doctor [...] that it is advisable. Date Last Reviewed: 10/10/201619992038-6771 [employer]. [address] [place] [id number]. All righ ts reserved. This information is not intended as a substitute for professional medical care. Always follow your healthcare professional's instructions. Managing PainAfter Surgery Once you re home after surgery, you may have some pain, since even minor surgery causes s welling and breakdown of tissue. When it comes to managingpain, the tips you may have lear benjamin in the hospital also work at home. To get the best pain relief possible, remember the po ints below. Special note: Be sure to follow any specificpost-surgery instructions from your surgeon o r nurse. Use your medicine only as directed If your pain is not relieved or if it gets worse, call your healthcare provider. If pain lessens, try taking your medicine less often or in smaller doses. Non-pharmacological methods of pain relief are also beneficial and may help your pain me dicine work better. Ask your healthcare provider for suggestions. Remember that medicines need time to work Most pain relievers taken by mouth need at least 20 to 30 minutes to start to work. They may not reach their maximum effect for close to an hour. Take pain medicine at regular times as directed. Don t wait until the pain gets bad to take it. Time your medicine Try to time your medicine so that you take it before starting an activity, such as dress ing or sitting at the table for dinner. Taking your medicine at night may help you get a good night s rest. Eat lots of fruit and vegetables Constipation is a common side effect with some pain medicines. Eating fruit, vegetables, andother foods high in fibercan help. Drink plenty of fluids. Talk to your healthcare provider about taking a preventive bowel regimen. Don'tdrink alcohol while taking pain medicine Mixing alcohol and pain medicine can cause dizziness and slow your respiratory system. I t can even be fatal. Don't drive or usemachinery while taking pain medicines that can cause drowsiness. Note these other precautions Ask your healthcare provider or pharmacist how to get rid of your pain medicines safely when you stop using them. Never share your pain medicines with anyone. Store your medicines in a safe place so they can t be stolen. If you think your medici ne has been stolen or lost, tell your healthcare provider right away. Date Last Reviewed: 12/10/201619996395-3651 [employer]. [address] [place] [address], [place] [address]. All righ ts reserved. This information is not intended as a substitute for professional medical care. Always follow your healthcare professional's instructions. Ronnie Schultz MD09/24/201711:41 Electronically signedDenise Villalpando CC AIR CONDITIONING EQUIPMENT MECHANIC - 09/24/2017 1030 PSTToradol injection give n left glute, no adverse reactions noted, per pt has had medication before. Electronically signed by: TEJAS Velázquez CMA 09/24/2017 11:22 in this encounter Plan of Treatment Not on fileas of this encounter Visit Diagnoses + + | Diagnosis | + + | Degeneration of lumbar or lumbosacral intervertebral disc - Primary | + + | Lumbar spondylosis | + + | Lumbosacral spondylosis without myelopathy | + + | Chronic pain syndrome | + + Administered Medications + +--------+ +-------+------+ + | Medication Order | MAR | Action | Dose | Rate | Site | | | Action | Date | | | | + +--------+ +-------+------+ + | ketorolac (TORADOL) injection | Given | | 60 mg | | Ventrogl | | 60 mg 60 mg, Intramuscular, | | 8 11:21 | | | uteal-Le | | ONCE, 09/24/17 at 1130, For 1 | | PST | | | ft | | dose | | | | | | + +--------+ +-------+------+ + +---+---+ | | | +---+---+ in this encounter
--- OUTSIDE RECORDS SUMMARY | ~2017-11-23 | XMS | Encounter Summary ---
Demographics + + + | Address | [address] | | | [place] [address] | + + + | Home Phone | | + + + | Preferred Language | Unknown | + + + | Marital Status | | + + + | Restorationist Affiliation | Unknown | + + + | Race | Unknown | + + + | Ethnic Group | Unknown | + + + Author + + + | Author | [facility] | | | and [place] | + + + | Organization | [facility] | | | and [...] [place] | | | | | [address] | | + + + + + Care Team Providers + +------+ + | Care Technical Maintenance Technician Name | Role | Phone | [...] [phone] | | | | | [place] [address] | | | | | | [phone] | | | +--------+--------+ + + + [...]
--- OUTSIDE RECORDS SUMMARY | ~2017-11-23 | XMS | Encounter Summary ---
Demographics + + + | Address | [address] | | | [place] [address] | + + + | Home Phone | | + + + | Preferred Language | Unknown | + + + | Marital Status | | + + + | Cheondoism Affiliation | Unknown | + + + | Race | Unknown | + + + | Ethnic Group | Unknown | + + + Author + + + | Author | [facility] | | | and [place] | + + + | Organization | [facility] | | | and [...] [place], [place] | | | | | [address] | | + + + + + Care Team Providers + +------+ + | Care Production Grader Name | Role | Phone | + +------+ + | Denis Starks DO | PCP | | + +------+ + Reason for Visit +---------+ + | Reason | Comments | +---------+ + | Post Op | 4W PO | +---------+ + Encounter Details +--------+---------+ + + + | Date | Type | Department | Care Team | Description | +--------+---------+ + + + | 08/28/ | Office | [facility] [place] | Aman Menezes, | S/P fusion of | | 2018 | Visit | NEUROSURGERY [address] | [place] [address] | thoracic spine | | | | [address] | [address] [place] | (Primary Dx) | | | | [place], [place] | [place] [address] | | | | | [address] | [phone] | | | | | [phone] | | | +--------+---------+ + + + [...] + + + | Blood Pressure | 102/63 | 08/28/20171455 PST | + + + + | Pulse | 108 | 08/28/20171455 PST | + + + + | Temperature | - | - | + + + + | Respiratory Rate | - | - | + + + + | Oxygen Saturation | - | - | + + + + | Inhaled Oxygen | - | - | | Concentration | | | + + + + | Weight | 62.3 kg (137 lb 5.6 | 08/28/20171455 PST | | | oz) | | + + + + | Height | 172.7 cm (5' 8") | 08/28/20171455 PST | + + + + | Body Mass Index | 20.88 | 08/28/20171455 PST | + + + + in [...] encounter Instructions Patient Instructions - Solange Montanez, [employer] - 08/28/2017 1500 PSTYou may now slowly increase your lifting up to 15 pounds as tolerated. You may now reach overhead but i t should only be 1-2 pounds. Please refrain from twisting for the next 8 weeks. Lastly, you will see Dr. Roman in approximately 2 months where a new x-ray will be taken at that time. In the meantime, you can also begin to wean out of your brace as instructed below. SPINE BRACE WEANING PROTOCOL (5 WEEKS) Below are instructions for weaning your brace. You can move through the weeks slower if yo u feel the need to do so, but the overall goal is to get you out of the brace slowly over th e next several weeks. WEEK 1 If you have been using your brace for activities like sleeping, showering, do not use the [employer] race for these activities any longer but continue using it for everything else. WEEK 2 Stop wearing your brace for sitting and short distance walking. You should use the brace f or anything more involved. WEEK 3 Stop using the brace for medium distance walking. You can bend and twist your back but sti ll proceed slowly with these activities. WEEK 4 Stop using the brace for everything but the most difficult tasks. You should now be able to go on long walks and lift more weight as directed. Add more bending and twisting as tolera sharron. WEEK 5 Stop using the brace for daily use. I would encourage you to use the brace in the future f or activities that you know might aggravate your back or cause pain. You should still work to strengthen your back and use good technique when parts picker things and bending. Please do not take any Ibuprofen, Aleve, Advil or any kind of an NSAID. These can slow down /hinder the bone regrowth in your back. We want to make sure it all fuses back together nice ly. You can take Tylenol as directed. Please keep us in the loop about the right leg numbness. We want to avoid any more surgical procedures. If the leg numbness worsens drastically or even slowly it continues to worsen p lease let us know right away. The numbness is to be expected as nerve damage can take a long time to heal. Your skin is going to by hypersensitive right now. So the burning sensation should that you get should slowly go away. The hot water can irritate the skin right now and so limit super hot water. Listen to your body, if you are hurting, do not push yourself. You should bounce back after 1-1.5 hours and get your pain back down to a manageable level. Please do not wayne your body , it needs time to heal, rest and taking it easy. You will slowly come out of the brace and walking is a great physical therapy to help you heal. When you start to drive you need to be off of the narcotics. We want you to be safe when dr rodas and not take any big risks. in this encounter Progress Notes Aman Menezes PA - 08/28/2017 1500 PSTFormatting of this note may be different from farzana sparrow original. NARAYAN Pedroza [address] [facility], [address] [place], [place] [id number] FAX: NEUROSURGERY FOLLOW-UP CHIEF COMPLAINT: Chief Complaint Patient presents with Post Op 4W PO HISTORY OF PRESENT ILLNESS: The patient is a 26 y.o. female that had a thoracic fusion for T3-5 Transforaminal Thoracic Interbody Fusion with Removal and Replacement of hardware at T 3-7 around 4 weeks ago. She returns and overall is doing fair. The patient complains of co nstant Rt anterior thigh numbness and pressure. The intensity has not gotten worse, it is li ke a sharp numbness pain. She also complains of pins and needles sensation on the bottom of her right foot this seems to be provoked by walking for any prolonged periods or sitting for prolonged periods. Intermittently, she feels some weakness in her right leg. When she fee ls her leg go numb she has to hold onto something. The pain described above can last for 1-1.5 hours. She does not feel like it is getting wo rse unless she walks, but not getting any better either. Patient's left leg feels better than it did prior to surgery. However, she feels like her right leg might be a little worse. Her primary care doctor does have her taking amitriptyli ne and zonisamide for her leg pain and fibromyalgia She stopped the pain patch as it was not helping. She was told not to take it if it was not working. The patient has been walking as much as directed, has been going to [employer] to walk around . She is still taking pain medications at this point. The patient has had no issues with h er surgical site. CURRENT MEDICATIONS: Current Outpatient Prescriptions Medication Sig [...] 25 mg by mouth 3 times daily. SUMAtriptan (IMITREX) 100 mg tablet [...] use drugs. INTERIM PHYSICAL EXAMINATION: Blood pressure 102/63, pulse 108, height 1.727 m (5' 8"), weight 62.3 kg (137 lb 5.6 oz), n ot currently . Body mass index is 20.88 kg/m. REVIEW OF SYSTEMS GENERALLY: No fever, no night sweats, no anemia, no fatigue, no recent profound weight ch anges. EYES: No eye problems, no use of [...] illness. In addition, the patient has numbness in Rt leg constantly, awakened with pain an d numbness through out the night, shaking in hands, pain in the neck and back. PSYCHIATRIC: No depression, no sleep disorders, no anxiety, no bipolar disorder, no psycho tic episodes. CARDIOVASCULAR: No heart attacks, no heart murmur, no heart fluttering, no chest pain, no ankle swelling. LUNG DISEASE: No shortness of breath, no cough, no tuberculosis, no bloody cough, no asth ma, no emphysema/COPD. GASTROINTESTINAL: No bowel disease, no nausea or vomiting, no rectal bleeding, no constipa tion, no stool incontinence, no liver disease, no [...] RHEUMATOLOGIC: No joint arthritis, no rheumatoid arthritis. GENERAL: Ying Saunders is in no acute distress with unlabored respirations. SPINE: The patient s incisions are well healed. EXTREMITIES: No lower extremity edema. NEUROLOGICAL EXAMINATION: MENTAL STATUS: The patient is awake, alert, and oriented. She follows simple and complex commands MOTOR EXAM: Motor strength is good. This is improved when compared to the preoperative exa m. SENSORY EXAM: The sensory examination is improved when compared to the preoperative exam. RADIOGRAPHIC REVIEW: The patient s x-rays show stable instrumentation and alignment and were reviewed with the patient today. There have been no interval changes since the immediate postoperative films . Complete fusion has not yet occurred, but this is normal and would not be expected at thi s time. ASSESSMENT: Encounter Diagnosis Name Primary? S/P fusion of thoracic spine Yes Past Medical History: Diagnosis Date Complication of anesthesia 2010 allergy to propfol had a seizure during surgery - used it since then without problems Fibromyalgia H/O cold sores Migraine Pneumonia PLAN: Overall, the patient is doing as expected. The patient can see some improvements but jojo nues to recover from recent surgery. I certainly do not appreciate any weakness on physical examination today. I feel that our best course of action at this time is to watch her cons ervatively and treat her expectantly. I increased the patient s activities now allowing 15 pound lifting. The patient should i ncrease range of motion activities as tolerated. I would like the patient to advance slowly with this process and discussed this at length during today's visit. I would also like the patient to continue with postoperative rehabilitation and to advance with therapy as davea sharron. We discussed that we can provide pain medications for up to 90 days after their surgical da te. We discussed the need to continue tapering pain medication. If they need longer term p ain medication, they should begin working on either pain management or with the primary care provider. I am hoping to see improvement over the coming weeks to months and plan to continue to foll ow this patient. The patient will follow-up in clinic in around 8 weeks for re-evaluation. I, NARAYAN Pedroza, personally performed the services described in this documentation , as scribed by RIA Chen in my presence, and it is both accurate and complete. NARAYAN Pedroza 08/28/2017 ELECTRONICALLY SIGNED BY: NARAYAN Pedroza, 08/28/2017 17:14 in this encounter Plan of Treatment Not [...]
--- OUTSIDE RECORDS SUMMARY | ~2017-11-23 | XMS | Encounter Summary ---
Demographics + + + | Address | [address] | | | [place] [address] | + + + | Home Phone | | + + + | Preferred Language | Unknown | + + + | Marital Status | | + + + | Restoration Affiliation | Unknown | + + + | Race | Unknown | + + + | Ethnic Group | Unknown | + + + Author + + + | Author | [facility] | | | and [place] | + + + | Organization | [facility] | | | and [place] [...] [place] | | | | | [address] | | + + + + + Care Team Providers + +------+ + | Care Accounting Assistant Name | Role | Phone | + +------+ + | Denis Starks DO | PCP | | + +------+ + Encounter Details +--------+ + + + + | Date | Type | Department | Care Team | Description | +--------+ + + + + | 08/28/ | Hospital | [facility] | Daljit Roman, | Status post cervical | | 2018 | Encounter | MED CTR XRAY [address] | DO [address] | spinal fusion; | | | | [place] | [address] [place], | Cervical | | | | [place] [address] | [place] [address] | radiculopathy | | | | [phone] | [phone] | | | | | | | [...]
--- OUTSIDE RECORDS SUMMARY | ~2017-11-23 | XMS | Encounter Summary ---
Demographics + + + | Address | [address] | | | [place] [address] | + + + | Home Phone | | + + + | Preferred Language | Unknown | + + + | Marital Status | | + + + | Congregational Affiliation | Unknown | + + + | Race | Unknown | + + + | Ethnic Group | Unknown | + + + Author + + + | Author | [facility] | | | and [place] | + + + | Organization | [facility] | | | and [...] | [place] | | | | | [address] | | + + + + + Care Team Providers + +------+ + | Care Lead Mechanical Engineer Name | Role | Phone | + [...] + + | 11/18/ | Telephone | [facility] [place] | Daljit Roman, | Coordination Of Care | | 2018 | | NEUROSURGERY [address] | DO [address] | (Neurologist/ pain | | | | [address] | [address] [place], | management) | | | | [place] | [place] [address] | | | | | [address] | [phone] | | | | | [phone] | | | +--------+ + + + [...]
--- OUTSIDE RECORDS SUMMARY | ~2017-11-23 | XMS | Encounter Summary ---
Demographics + + + | Address | [address] | | | [place] [address] | + + + | Home Phone | | + + + | Preferred Language | Unknown | + + + | Marital Status | | + + + | Orthodox Affiliation | Unknown | + + + | Race | Unknown | + + + | Ethnic Group | Unknown | + + + Author + + + | Author | [facility] | | | and [place] | + + + | Organization | [facility] | | | and [...] [place] | | | | | [address] | | + + + + + Care Team Providers + +------+ + | Care Director Of Accounts Receivable Name | Role | Phone | + [...] [place], | | | | | [place] | [place] [address] | | | | | [address] | [phone] | | | | | [phone] | | | +--------+--------+ + + + [...]
--- OUTSIDE RECORDS SUMMARY | ~2017-11-23 | XMS | Encounter Summary ---
Demographics + + + | Address | [address] | | | [place] [address] | + + + | Home Phone | | + + + | Preferred Language | Unknown | + + + | Marital Status | | + + + | Methodist Affiliation | Unknown | + + + | Race | Unknown | + + + | Ethnic Group | Unknown | + + + Author + + + | Author | [facility] | | | and [place] | + + + | Organization | [facility] | | | and [place] [...] [place] | | | | | [address] | | + + + + + Care Team Providers + +------+ + | Care Process Pumper Name | Role | Phone | + +------+ + | Denis Starks DO | PCP | | + +------+ + Reason for Visit + + + | Reason | Comments | + + + | Follow-up | Low back pain | + + + Encounter Details +--------+---------+ + + + | Date | Type | Department | Care Team | Description | +--------+---------+ + + + | 11/20/ | Office | [facility] | Richard Saravia | Chronic pain | | 2018 | Visit | [facility] | [address] | syndrome (Primary | | | | [facility] [address] | Dx); Lumbar | | | | [address], | [place] [address] | spondylosis; | | | | [place] [address] | [phone] | Thoracic spinal | | | | [phone] | | stenosis; Back pain, | | [...] | | | | | Neuropathy | +--------+---------+ + + + Social History [...] + | Blood Pressure | 104/60 | 11/20/20171328 PDT | + + + + | Pulse | 108 | 11/20/20171328 PDT | + + + [...] 11/20/20171328 PDT | + + + + in [...] + as of this encounter Progress Notes Richard Saravia ARNP - 11/20/2017 1330 PDTFormatting of this note may be different f rom the original. Subjective: Patient ID: Ying Saunders is a 26 y.o. female. She is here for a follow up appoint ment for her migraines,chronic low back and neck pain. She is due for an update on her UDS and was sent to have that done prior to this appointment. She went to see Dr. Roman in [facility] and he told her that all of her incisions were healed well. The left scar has about a 2. 5 cm long x 1 cm area that is erythematous and tender to palpation. She was offered a refer ral to a Plastic Surgeon for this and I suggested she take them up on this offer. She contin ues to complain of some thoracic pain between her shoulder blades at this site and he had so me X-rays done of that area to check on the hardware in that location. All of the pedicle s crews were intact and secure, but her pain continues. She is attending PT and is scheduled to start water therapy this week for this. If the discomfort does not resolve, we should co nsider getting a CT of that area and see if there is anything else that explains the pain. She is still taking the medications as directed and is using moist heat in that area as well . She has also been using the [employer] products including topicals and edibles that have been h elpful to a point. Patient's medications, allergies, past medical, surgical, social and family histories were obtained and reviewed as appropriate. Review of Systems Musculoskeletal: Positive for back pain and neck pain. Neurological: Positive for numbness and headaches. Migraines without aura, peripheral neuropathy Objective: Vitals: 11/20/17 1329 BP: 104/60 Pulse: 108 Resp: 16 PainSc: 8 PainLoc: Back Physical Exam : General Well developed, well nourished, well groomed HEENT Normocephalic, atruamatic Cardiovascular Heart rate and rhythm normal, no murmurs Neuro Right handed Mental Status Awake, alert, oriented to person, place and time Attention and concentration intact Language/speech: fluent with conversation, no lag with answering questions Behavior Appropriate Mood normal Affect normal Cranial Nerves I- deferred II- pupils are equally round and reactive to light. Visual tyson are full to confrontation . Optic discs are flat with sharp margins bilaterally. III, IV and : Extraocular movements intact. No nystagmus or ptosis, normal ocular pursui ts V- Facial Sensation intact Normal strength of masticatory muscles. VII- No facial weakness or asymmetry VIII- Hearing intact to voice IX- Palate elevates symmetrically. XI- Shoulder shrug full strength. XII- Tongue is midline. No atrophy or fasciculations Motor No focal weakness No upper extremity drift Tremors absent Involuntary Movements absent Rigidity/ Cogwheel rigidity absent Sensory Pinprick, vibration and position sense impaired in all extremities Reflexes Deep Tendon Reflexes intact 2+ Babinski negative Frontal release signs absent Gait and Station Normal No shuffling Arm swing normal Tandem gait intact Turning not impaired Coordination Finger to nose normal MiscellaneousComplains of significant low back pain 8/10 on the pain scale today Assessment: 1. Chronic pain syndrome - Drugs of Abuse, Screen, Urine; Future 2. Lumbar spondylosis 3. Thoracic spinal stenosis 4. Back pain, unspecified back location, unspecified back pain laterality, unspecified microwave supervisor nicity 5. Degeneration of lumbar or lumbosacral intervertebral disc 6. Neuropathy Plan: Continue medications as prescribed. Follow up with PCP as indicated. Updated UDS today. Continue physical therapy and water therapy. Talk to Dr. Roman's office about Plastic Surgery referral. She was provided with a Rice Pack todayin this encounter Plan of Treatment Not on fileas of this encounter Results Drugs of Abuse, Screen, Urine (11/20/2017 1311) + + + + | Component | [...] | + + + | Urine | [facility] [address] [place], | | | [place] [address] | + + + + + | [...] | ANTIDEPRES 300 ng/mL | + + in this encounter Visit Diagnoses + + | Diagnosis | + + | Chronic pain syndrome - Primary | + + | Lumbar spondylosis | + + | Lumbosacral spondylosis without myelopathy | + + | Thoracic spinal stenosis | + + | Spinal stenosis of thoracic region | + + | Back pain, unspecified back location, unspecified back pain laterality, unspecified | | chronicity | + + | Degeneration of lumbar or lumbosacral intervertebral disc | + + | Neuropathy | + + | Mononeuritis of unspecified site | + +
--- OUTSIDE RECORDS SUMMARY | ~2017-11-23 | XMS | Clinical Summary ---
Demographics + + + | Address | [address] | | | [place] [address] | + + + | Home Phone | | + + + | Preferred Language | Unknown | + + + | Marital Status | | + + + | Jainism Affiliation | Unknown | + + + | Race | Unknown | + + + | Ethnic Group | Unknown | + + + Author + + + | Author | [facility] | | | and [place] | + + + | Organization | [facility] | | | and [place] [...] [place] | | | | | [address] | | + + + + + Care Team Providers + +------+ + | Care Special Programs Director Name | Role | Phone | [...] | [facility] - | | 08/29/ | [id number] | | [id number]: Qty: 1 on | | Spine | [...] | [facility] - | | 08/29/ | [id number] | | [id number]: Qty: 1 on | | Spine | [...] | [facility] - | | 11/30/ | [id number] | | [id number]: Qty: 1 | | Thorac | MEDT | | 2021 | | | on 07/26/2017 by Abel, | | ic | | | | /[id number] | | Daljit Cool DO | | | | | | 4-022 | | | | | | | | / | + +--------+--------+ +--------+--------+--------+ | Imp Spn Elizabeth Peek [id number] - | Generi | N/A: | [facility] - | | 03/23/ | 379891 | | [id number]: Qty: 1 | c | Spine | MEDT | | 2023 | 1 / | | on 12/14/2016 by Abel, | | Cervic | | | | /12CG | | Daljit Cool DO | | al | | | | | + +--------+--------+ +--------+--------+--------+ | Imp Spn Elizabeth Peek [id number] - | Generi | N/A: | [facility] - | | 04/27/ | 997620 | | [id number]: Qty: 1 | c | Spine | MEDT | | 2023 | 1 / | | on 12/14/2016 by Abel, | | Cervic | | | | /67CM | | Daljit Cool DO | | al | | | | | + +--------+--------+ +--------+--------+--------+ | Imp Spn Spcr Cpstn 7x22mm - | Generi | N/A: | [facility] - | | 10/02/ | [id number] | | [id number]: Qty: 1 on | c | Thorac | MEDT | | 2024 | 2 / | | 07/26/2017 by Daljit Roman | | ic | | | | /[id number] | | DO Silvina | | | | | | 432 | + +--------+--------+ +--------+--------+--------+ | Imp Spn Spcr Cpstn 7x22mm - | Generi | N/A: | [facility] - | | 12/13/ | 874973 | | [id number]: Qty: 1 on | c | Thorac | MEDT | | 2023 | 2 / | | 07/26/2017 by Daljit Roman | | ic | | | | /[id number] | | A, DO | | | | | | 374 | + +--------+--------+ +--------+--------+--------+ | Imp Spn [address] 4.00f246bs - | Generi | N/A: | [facility] - | | | 331885 | | [id number]: Qty: 2 on | c | Thorac | MEDT | | | 6130 / | | 07/26/2017 by Daljit Roman | | ic | | | | / | | A, DO | | | | | | | + +--------+--------+ +--------+--------+--------+ | Putty Kaitlyn 10cc Dbm - | Graft | N/A: | [facility] - | | 05/15/ | [id number] | | [id number]: Qty: 1 | | Thorac | MEDT | | 2020 | | | on 07/26/2017 by Able, | | ic | | | | /[id number] | | Daljit Cool DO | | | | | | 4-013 | | | | | | | | / | + +--------+--------+ +--------+--------+--------+ | Graft Infuse Bone Kit Xs - | Graft | N/A: | [facility] - | | 08/11/ | 982320 | | [id number]: Qty: 1 on | | Thorac | MEDT | | 2017 | 0 / | | 07/26/2017 by Daljti Roman | | ic | | | | /[id number] | | DO Silvina | | | | | | 29AAM | + +--------+--------+ +--------+--------+--------+ | Plate Ant Celeste Masoud | Plate | N/A: | [facility] - | | | 491611 | | 42.5mm - [id number]: | | Spine | MEDT | | | 2 / / | | Qty: 1 on 12/14/2016 by | | Max | | | | | | Daljit Roman DO | | al | | | | | + +--------+--------+ +--------+--------+--------+ | Screw Slf-Drl V/A 4.0x14mm - | Screw | N/A: | [facility] | | | 847516 | | [id number]: Qty: 6 on | | Spine | AJDEEK - DIV | | | 4 / / | | 12/14/2016 by Daljit Roman | | Cervic | [facility] | | | | | A, DO | | al | - SFDK | | | | + +--------+--------+ +--------+--------+--------+ | Screw Eder Solera 5.5x40mm - | Screw | N/A: | [facility] - | | | 959600 | | [id number]: Qty: 1 on | | Thorac | MEDT | | | 09286 | | 07/26/2017 by Daljit Roman | | ic | | | | / / | | A, DO | | | | | | | + +--------+--------+ +--------+--------+--------+ | Screw Eder Solera 5.5x45mm - | Screw | N/A: | [facility] - | | | 176854 | | [id number]: Qty: 3 on | | Thorac | MEDT | | | 56465 | | 07/26/2017 by Daljit Roman | | ic | | | | / / | | A, DO | | | | | | | + +--------+--------+ +--------+--------+--------+ | Screw Mas G5 Slra 7.5x40 Cn - | Screw | N/A: | [facility] - | | | 656527 | | [id number]: Qty: 1 | | Thorac | MEDT | | | 74337 | | on 07/26/2017 by Abel, | | ic | | | | / / | | Daljit Cool DO | | | | | | | + +--------+--------+ +--------+--------+--------+ | Screw Eder Solera 6.5x40mm - | Screw | N/A: | [facility] - | | | 430042 | | [id number]: Qty: 1 on | | Thorac | MEDT | | | 52797 | | 07/26/2017 by Daljit Roman | | ic | | | | / / | | DO Silvina | | | | | | | + +--------+--------+ +--------+--------+--------+ | Screw Eder Solera 6.5x45mm - | Screw | N/A: | [facility] - | | | 334161 | | [id number]: Qty: 1 on | | Thorac | MEDT | | | 72472 | | 07/26/2017 by Daljit Roman | | ic | | | | / / | | A DO | | | | | | | + +--------+--------+ +--------+--------+--------+ | Set Scrw Ns G5 Brk Off Ti | Screw | N/A: | [facility] - | | | 469527 | | 4.75 - [id number]: | | Thorac | MEDT | | | 0 / / | | Qty: 10 on 07/26/2017 by | | ic | | | | | | Daljit Roman DO | | | | | | | + +--------+--------+ +--------+--------+--------+ | Chips Cancellous 15cc - | | N/A: | [facility] - | | 09/08/ | 514278 | | [id number]: Qty: 1 | | Back | OSTT | | 2020 | | | on 12/16/2014 by Abel, | | | | | | /[id number] | | Daljit Cool DO | | | | | | 0-036 | | | | | | | | / | + +--------+--------+ +--------+--------+--------+ | Screw Slra Johant 7.5.55 - | | N/A: | [facility] - | | | 001783 | | [id number]: Qty: 1 on | | Back | MEDT | | | 44693 | | 12/16/2014 by Daljit Roman | | | | | | / / | | A, DO | | | | | | | + +--------+--------+ +--------+--------+--------+ | Imp Spn Nicholas Sext Ti | | N/A: | [facility] | | | 096334 | | 4.71cvps44 - | | Back | DANEK - DIV | | | 5070 / | | [id number]: Qty: 1 on | | | [facility] | | | / | | 12/16/2014 by Daljit Roman | | | - SFDK | | | | | Silvina DO | | | | | | | + +--------+--------+ +--------+--------+--------+ | Imp Spn Nicholas Sext Ti 4.92p49vf | | N/A: | [facility] | | | 726622 | | - [id number]: Qty: 1 | | Back | DANEK - DIV | | | 5075 / | | on 12/16/2014 by Abel, | | | [facility] | | | / | | Daljit Cool DO | | | - SFDK | | | | + +--------+--------+ +--------+--------+--------+ | Set Scrw Ns G5 Brk Off Ti | | N/A: | [facility] | | | 802231 | | 4.75 - [id number]: | | Back | DANEK - DIV | | | 0 / / | | Qty: 5 on 12/16/2014 by | | | [facility] | | | | | Daljit Roman DO | | | - SFDK | | | | + +--------+--------+ +--------+--------+--------+ | Chips Cancellous 15cc - | | N/A: | [facility] - | | 10/07/ | 563803 | | [id number]: Qty: 1 | | Back | OSTT | | 2020 | | | on 12/16/2014 by Abel, | | | | | | /77963 | | Daljit Cool DO | | | | | | 8-032 | | | | | | | | / | + +--------+--------+ +--------+--------+--------+ | Graft Infuse Bone Kit Xs - | | N/A: | [facility] | | 01/09/ | 789822 | | [id number]: Qty: 1 on | | Back | DANEK - DIV | | 2016 | 0 / | | 12/16/2014 by Daljit Roman | | | [facility] | | | /[id number] | | DO Silvina | | | - SFDK | | | 47AAD | + +--------+--------+ +--------+--------+--------+ | Imp Spn Spcr [place] [id number] | | N/A: | [facility] - | | 10/14/ | 095293 | | - [id number]: Qty: 1 | | Back | MEDT | | 2022 | 1 / | | on 12/16/2014 by Abel, | | | | | | /[id number] | | Daljit Cool DO | | | | | | 018 | + +--------+--------+ +--------+--------+--------+ | Algyaimat Putty Kaitlyn 5cc Dbm | | N/A: | [facility] - | | 06/07/ | 01817 | | - [id number]: Qty: 1 | | Back | OSTT | | 2016 | /[id number] | | on 12/16/2014 by Abel, | | | | | | 4034 / | | Daljit Cool DO | | | | | | | + +--------+--------+ +--------+--------+--------+ | Chips Cancellous 15cc - | | N/A: | [facility] - | | 10/11/ | 075521 | | [id number]: Qty: 1 | | Back | OSTT | | 2020 | | | on 12/16/2014 by Abel, | | | | | | /75015 | | Daljit Cool DO | | | | | | 0-010 | | | | | | | | / | + +--------+--------+ +--------+--------+--------+ | Imp Spn Spcr [place] [id number] | | N/A: | [facility] - | | 07/23/ | 657822 | | - [id number]: Qty: 1 | | Back | MEDT | | 2021 | 2 / | | on 12/16/2014 by Abel, | | | | | | /[id number] | | Daljit Cool DO | | | | | | 516 | + +--------+--------+ +--------+--------+--------+ | Screw Eder Solera 6.5x55mm - | | N/A: | [facility] | | | 740214 | | [id number]: Qty: 2 on | | Back | DANEK - DIV | | | 72039 | | 12/16/2014 by Daljit Roman | | | [facility] | | | / / | | DO Silvina | | | - SFDK | | | | + +--------+--------+ +--------+--------+--------+ | Screw Mas G5 Slra 7.5x45 Cn - | | N/A: | [facility] | | | 444703 | | [id number]: Qty: 2 | | Back | DANEK - DIV | | | 20464 | | on 12/16/2014 by Abel, | | | [facility] | | | / / | | Daljit Cool DO | | | - SFDK | | | | + +--------+--------+ +--------+--------+--------+ | Bone Chips 15cc - | | N/A: | [facility]AN | | 12/02/ | 283802 | | [id number]: Qty: 1 | | Spine | RED CROSS - | | 2020 | | | on 06/03/2015 by Abel, | | Thorac | AMRR | | | /00728 | | Daljit Cool DO | | ic | | | | 7-017 | | | | | | | | / | + +--------+--------+ +--------+--------+--------+ | Putty [place] 10cc Dbm - | | N/A: | [facility] - | | 03/03/ | 68204 | | [id number]: Qty: 1 | | Spine | OSTT | | 2017 | /[id number] | | on 06/03/2015 by Abel, | | Thorac | | | | 4-013 | | Daljit Cool DO | | ic | | | | / | + +--------+--------+ +--------+--------+--------+ | Graft Infuse Bone Kit Xs - | | N/A: | [facility] | | 05/04/ | 726734 | | [id number]: Qty: 1 on | | Spine | DANEK - DIV | | 2015 | 0 / | | 06/03/2015 by Daljti Roman | | Thorac | [facility] | | | /[id number] | | DO Silvina | | ic | - SFDK | | | 84AAD | + +--------+--------+ +--------+--------+--------+ | Imp Spn Spcr Cpstn 7x22mm - | | N/A: | [facility] | | 12/02/ | 526991 | | [id number]: Qty: 1 on | | Spine | DANEK - DIV | | 2022 | 2 / | | 06/03/2015 by Daljit Roman | | Thorac | [facility] | | | /[id number] | | A DO | | ic | - SFDK | | | 208 | + +--------+--------+ +--------+--------+--------+ | Nicholas Perc Str Ccm-Pls 4.13d448 | | N/A: | [facility] - | | | 829033 | | - [id number]: Qty: 1 | | Spine | MEDT | | | 6120 / | | on 06/03/2015 by Abel, | | Thorac | | | | / | | Daljit Cool DO | | ic | | | | | + +--------+--------+ +--------+--------+--------+ | Imp Spn Nicholas Ti Sext Ti 5.5x45 | | N/A: | [facility] | | | 035989 | | - [id number]: Qty: 1 | | Spine | DANEK - DIV | | | 5045 / | | on 06/03/2015 by Abel, | | Thorac | [facility] | | | / | | Daljit Cool DO | | ic | - SFDK | | | | + +--------+--------+ +--------+--------+--------+ | Screw Eder Solera 5.5x35mm - | | N/A: | [facility] - | | | 312324 | | [id number]: Qty: 1 on | | Spine | MEDT | | | 74211 | | 06/03/2015 by Daljit Roman | | Thorac | | | | / / | Daniela Cool DO | | ic | | | | | + +--------+--------+ +--------+--------+--------+ | Screw Eder Solera 5.5x40mm - | | N/A: | [facility] | | | 432772 | | [id number]: Qty: 1 on | | Spine | DANEK - DIV | | | 26143 | | 06/03/2015 by Daljit Roman | | Thorac | [facility] | | | / / | | A, DO | | ic | - SFDK | | | | + +--------+--------+ +--------+--------+--------+ | Screw Eder Solera 5.5x45mm - | | N/A: | [facility] | | | 690356 | | [id number]: Qty: 3 on | | Spine | DANEK - DIV | | | 56934 | | 06/03/2015 by Daljit Roman | | Thorac | [facility] | | | / / | | A, DO | | ic | - SFDK | | | | + +--------+--------+ +--------+--------+--------+ | Set Scrw Ns G5 Brk Off Ti | | N/A: | [facility] | | | 167019 | | 4.75 - [id number]: | | Spine | DANEK - DIV [...] N/A: | [facility] - | | | 963591 | | [id number]: Qty: 1 on | | Thorac | MEDT | | | 83380 | | 07/26/2017 | | ic | [...] | + + + | Urine | [facility] [address] [place], | | | [place] [address] | + + + + + | [...] LUDY | al/Fam | | 1990 | [phone] | [place], [place] | | | hernandez | | | 1210 | [address] | + +--------+ +--------+ + + | YING RODRIGUEZ | Person | Self [birth year] Home: | [address] | | LUDY | al/Fam | | 1990 | [phone] | [place], [place] | | | hernandze | | | 1210 | [address] | + +--------+ +--------+ + +
--- OUTSIDE RECORDS SUMMARY | ~2017-11-23 | XMS | Encounter Summary ---
Demographics + + + | Address | [address] | | | [place] [address] | + + + | Home Phone | | + + + | Preferred Language | Unknown | + + + | Marital Status | | + + + | Oriental Orthodox Affiliation | Unknown | + + + | Race | Unknown | + + + | Ethnic Group | Unknown | + + + Author + + + | Author | [facility] | | | and [place] | + + + | Organization | [facility] | | | and [place] [...] [place] | | | | | [address] | | + + + + + Care Team Providers + +------+ + | Care Emt Paramedic Name | Role | Phone | + [...] [address] | | | | | [place] [address] | | | | | | [phone] | | | +--------+ + + + [...]
--- OUTSIDE RECORDS SUMMARY | ~2017-11-23 | XMS | Encounter Summary ---
Demographics + + + | Address | [address] | | | [place] [address] | + + + | Home Phone | | + + + | Preferred Language | Unknown | + + + | Marital Status | | + + + | Mandaen Affiliation | Unknown | + + + | Race | Unknown | + + + | Ethnic Group | Unknown | + + + Author + + + | Author | [facility] | | | and [place] | + + + | Organization | [facility] | | | and [...] [place] | | | | | [address] | | + + + + + Care Team Providers + +------+ + | Care Fabrication And Layout Craftsman Name | Role | Phone | + +------+ + | Denis Starks DO | PCP | | + +------+ + Encounter Details +--------+ + + + + | Date | Type | Department | Care Team | Description | +--------+ + + + + | 08/28/ | Hospital | [facility] | Daljit Roman [place], | Status post thoracic | | 2018 | Encounter | [facility] X[facility] [address] | DO [address] | spinal fusion; | | | | [place] | [address] [place], | Spondylosis with | | | | [place] [address] | [place] [address] | myelopathy, thoracic | | | | [phone] | [phone] | region | | | | | | | [...] encounter Results XR Thoracic Spine 2 Vw (08/28/20171409) + + | Narrative | + + | CLINICAL INFORMATION: S/P Thoracic Fusion. COMPARISON: 07/26/2017. | | FINDINGS: AP and lateral views of the thoracic spine. Posterior pedicle | | screw and yifan fusion changes at T3-T7 with stable positioning [...] + + | Williams Berrios Results In 08/28/2017 1502 PST CLINICAL INFORMATION: S/P Thoracic Fusion. | | | | COMPARISON: 07/26/2017. | | | | FINDINGS: | | AP and lateral views of the thoracic spine. | | | | Posterior pedicle screw and yifan fusion changes at T3-T7 with stable positioning [...] signed: 08/28/2017 2:59 PM | + + in this encounter Visit Diagnoses + + | Diagnosis | + + | Status post thoracic spinal fusion | + + | Spondylosis with myelopathy, thoracic region | + +"
--- OUTSIDE RECORDS SUMMARY | ~2017-11-23 | XMS | Encounter Summary ---
Demographics + + + | Address | [address] | | | [place] [address] | + + + | Home Phone [...] + | Author | [facility] | | | and [place] | + + + | Organization | [facility] | | | and [place] [...] [place] | | | | | [address] | | + + + + + Care Team Providers + +------+ + | Care Joint Creaser Name | Role | Phone | + +------+ + | Denis Starks DO | PCP | | + +------+ + Encounter Details +--------+ + + + + | Date | Type | Department | Care Team | Description | +--------+ + + + + | 08/28/ | Hospital | [facility] | Daljit Roman [place], | Status post thoracic | | 2018 | Encounter | MED [facility] XRAY [address] | DO [address] | spinal fusion; | | | | [place] | [address] [place], | Spondylosis with | | | | [place] [address] | [place] [address] | myelopathy, thoracic | | | | [phone] | [phone] | region | | | | | [...]
--- OUTSIDE RECORDS SUMMARY | ~2017-11-23 | XMS | Encounter Summary ---
Demographics + + + | Address | [address] | | | [place] [address] | + + + | Home Phone | | + + + | Preferred Language | Unknown | + + + | Marital Status | | + + + | Taoist Affiliation | Unknown | + + + | Race | Unknown | + + + | Ethnic Group | Unknown | + + + Author + + + | Author | [facility] | | | and [place] | + + + | Organization | [facility] | | | and [...] [place] | | | | | [address] | | + + + + + Care Team Providers + +------+ + | Care Photographic Aide Name | Role | Phone | + +------+ + | Denis Starks DO | PCP | | + +------+ + Reason for Referral Evaluate & Treat (Routine) + + + + + + + | Status | Reason | Specialty | Diagnoses / | Referred By | Referred To | | | | | Procedures | Contact | Contact | + + + + + + + | Authorized | Specialty | Physical | Diagnoses | Abel, | [facility] | | | Services | Therapy | Thoracic | Daljit Cool DO | HOSPITAL | | | Required | | myelopathy | [address] | | | | | S/P fusion | [address] | [address] | | | | | of thoracic | [address] | [place], [place] | | | | | spine S/P | [place], | [address] | | | | | spinal | [place] [address] | Phone: | | | | | fusion | Phone: | [phone] | | | | | Procedures | [phone] | Fax: | | | | | HIM 11/01/17 | Fax: | [phone] | | | | | | [phone] | | + + + + + + + Reason for Visit +---------+ + | Reason | Comments | +---------+ + | Post Op | 3 month SX: 07/26/17 | +---------+ + Encounter Details +--------+---------+ + + + | Date | Type | Department | Care Team | Description | +--------+---------+ + + + | 10/29/ | Office | [facility] | Daljit Roman, | Thoracic myelopathy | | 2018 | Visit | NEUROSURGERY [address] | DO [address] | (Primary Dx); S/P | | | | [address] | [address] [place], | fusion of thoracic | | | | [place], [place] | [place] [address] | spine; S/P spinal | | | | [address] | [phone] | fusion | | | | [phone] | | | +--------+---------+ + + + [...] + + + | Blood Pressure | 104/68 | 10/29/20178 PDT | + + + + | Pulse | 101 | 10/29/20171317 PDT | + + + + | Temperature | - | - | + + + + | Respiratory Rate | - | - | + + + + | Oxygen Saturation | - | - | + + + + | Inhaled Oxygen | - | - | | Concentration | | | + + + + | Weight | 62.4 kg (137 lb 9.1 | 10/29/20171317 PDT | | | oz) | | + + + + | Height | 170.2 cm (5' 7") | 10/29/20171317 PDT | + + + + | Body Mass Index | 21.55 | 10/29/20171317 PDT | + + + + in [...] of this encounter Instructions Patient Instructions - Daljit Roman DO - 10/29/2017 1300 PDTPlease undergo new x-rays o f the thoracic spine in 3 and 9 months. Please start physical therapy. Please follow-up with me as needed. in this encounter Progress Notes Daljit Roman DO - 10/29/2017 1300 PDTFormatting of this note may be different from the original. Daljit Roman DO [address] [facility], [address] [place] [address] FAX: NEUROSURGERY FOLLOW-UP CHIEF COMPLAINT: Chief Complaint Patient presents with Post Op 3 month SX: 07/26/17 HISTORY OF PRESENT ILLNESS: The patient is a 26 y.o. female that had a fusion by me for th oracic myelopathy T3-7 around 3 months ago. She returns and overall is doing fairly well. The patient complains of increased incisional pain compared to her last thoracic surgery . Her preoperative leg numbness, cramping, and weakness is improved. The patient is st ill taking narcotics for pain management. The patient has been walking as directed and has tried to remain active. Overall, the patient is pleased with her improvement, but is concer benjamin about the ongoing midback pain. She relates a history of fibromyalgia and feels like gilberto t may be contributing as well. PAST MEDICAL HISTORY: Past Medical History: Diagnosis Date Complication of anesthesia 2010 allergy to propfol had a seizure during surgery - used it since then without problems Fibromyalgia H/O cold sores Lumbar stenosis Migraine Pneumonia PAST SURGICAL HISTORY: Past Surgical History: Procedure Laterality Date APPENDECTOMY 07/26/2013 [place] CERVICAL SPINE SURGERY N/A 12/14/2016 Procedure: C4-5, C5-6 Anterior Cervical Discectomy w/ Fusion and Plating; Surgeon: Daljit Roman DO; Location: [facility] MAIN OR CHOLECYSTECTOMY, LAPAROSCOPIC 08/28/10 LUMBAR LAMINECTOMY N/A 12/16/2014 Procedure: L4-5, L5-S1 Transforaminal Lumbar Interbody Fusion; Surgeon: Janelle Benedict; Location: [facility] MAIN OR LUMBAR LAMINECTOMY N/A 06/03/2015 Procedure: T6-7 Thoracic Transforaminal Interbody Fusion w/ T3-4, T4-5, T5-6, and T6-7 Po sterolateral Fusion; Surgeon: Daljit Roman DO; Location: [facility] MAIN OR LUMBAR SPINE SURGERY 02/24/2014 [facility] Steroid injection 08/2014 [place] THORACIC SPINE SURGERY N/A 07/26/2017 Procedure: T3-5 Transforaminal Thoracic Interbody Fusion with Removal and Replacement of h ardware at T3-7; Surgeon: Daljit Roman DO; Location: [facility] MAIN OR CURRENT MEDICATIONS: Current Outpatient Prescriptions Medication Sig [...] does not drink alcohol or use drugs. FAMILY HISTORY: Family History Problem Relation Age of Onset Arthritis Mother Cancer Mother Heart disease Mother and Father Hypertension Mother and Father Stroke Mother Crohn's disease Mother Diabetes Father REVIEW OF SYSTEMS GENERALLY: No fever, no [...] the patient has numbness and pain of right arm and hand, weakness, m uscle aching, tremor/shaking, pain in neck and back. PSYCHIATRIC: No depression, no [...] rheumatoid arthritis. INTERIM PHYSICAL EXAMINATION: Blood pressure 104/68, pulse 101, height 1.702 m (5' 7"), weight 62.4 kg (137 lb 9.1 oz), n ot currently . Body mass index is 21.55 kg/m. GENERAL: Ying Saunders is in no acute distress with unlabored respirations. SPINE: The patient s incisions are healing well without drainage, significant erythema, o r discharge EXTREMITIES: No lower extremity edema. NEUROLOGICAL EXAMINATION: MENTAL STATUS: The patient is awake, alert, and oriented. She follows simple and complex commands MOTOR EXAM: Motor strength is 5/5. This is improved from the preoperative exam. SENSORY EXAM: The sensory examination improved from the preoperative exam. REFLEXES: Reflexes are unchanged from her preoperative history and physical. RADIOGRAPHIC REVIEW: The patient s postoperative x-rays show stable instrumentation and alignment and were rev iewed with the patient today. There have been no interval changes since the immediate posto perative films. Complete fusion has yet occurred, but this is normal and would not be expec sharron at this time. ASSESSMENT: S/P T3-7 fusion: Encounter Diagnoses Name Primary? Thoracic myelopathy Yes S/P fusion of thoracic spine S/P spinal fusion Past Medical History: Diagnosis Date Complication of anesthesia 2010 allergy to propfol had a seizure during surgery - used it since then without problems Fibromyalgia H/O cold sores Lumbar stenosis Migraine Pneumonia PLAN: Overall, the patient is doing fairly well. I was pleased to see at least some further impr ovement and expect more improvement with time. This was discussed with the patient today. I have increased the patient s activities further, and I would like the patient to continu e to advance with activities as tolerated and as directed. With respect to her midback pain, she will continue conservative management - CBD oil, pain medications, etc. I will refer to physical therapy for additional multimodal conservative m anagement. She will undergo repeat x-ray of the midback in 3 and 9 months and follow-up with me as yelena geronimo ELECTRONICALLY SIGNED BY: Daljit Roman DO, 10/29/2017 13:55in this encounter Plan of Treatment + +--------+ + + | Name | Priori | Associated Diagnoses | Order Schedule | | | ty | | | + +--------+ + + | XR Thoracic Spine 2 Vw | Routin | Thoracic | Expected: | | | e | myelopathy S/P | 01/29/2018, Expires: | | | | fusion of thoracic | 10/29/2018 | | | | spine S/P spinal | | | | | fusion | | + +--------+ + + | XR Thoracic Spine 2 Vw | Routin | Thoracic | Expected: | | | e | myelopathy S/P | 07/31/2018, Expires: | | | | fusion of thoracic | 10/29/2018 | | | | spine S/P spinal | | | | | fusion | | + +--------+ + + + +--------+ + + | Name | Priori | Associated Diagnoses | Order Schedule | | | ty | | | + +--------+ + + | Ambulatory referral to Physical | Routin | Thoracic | 1 Occurrences | | Therapy | e | myelopathy S/P | starting 10/29/2017 | | | | fusion of thoracic | until 10/29/2018 | | | | spine S/P spinal | | | | | fusion | | + +--------+ + + as of this encounter Visit Diagnoses + + | Diagnosis | + + | Thoracic myelopathy - Primary | + + | Spondylosis with myelopathy, thoracic region | + + | S/P fusion of thoracic spine | + + | S/P spinal fusion | + + | Arthrodesis status | + +
--- OUTSIDE RECORDS SUMMARY | ~2017-11-23 | XMS | Encounter Summary ---
Demographics + + + | Address | [address] | | | [place] [address] | + + + | Home Phone | | + + + | Preferred Language | Unknown | + + + | Marital Status | | + + + | Jew Affiliation | Unknown | + + + | Race | Unknown | + + + | Ethnic Group | Unknown | + + + Author + + + | Author | [facility] | | | and [place] | + + + | Organization | [facility] | | | and [...] [place] | | | | | [address] | | + + + + + Care Team Providers + +------+ + | Care Skin Installer Name | Role | Phone | + [...] Description | +--------+--------+ + + + | 09/17/ | Refill | [facility] [place] | Daljit Roman, | Medication Refill | | 2017 | | NEUROSURGERY [address] | DO [address] | | | | | [address] | [address] [place], | | | | | [place] | [place] [address] | | | | | [address] | [phone] | | | | | [phone] | | | +--------+--------+ + + + [...]
--- OUTSIDE RECORDS SUMMARY | ~2017-11-23 | XMS | Encounter Summary ---
Demographics + + + | Address | [address] | | | [place] [address] | + + + | Home Phone | | + + + | Preferred Language | Unknown | + + + | Marital Status | | + + + | Cheondoism Affiliation | Unknown | + + + | Race | Unknown | + + + | Ethnic Group | Unknown | + + + Author + + + | Author | [facility] | | | and [place] | + + + | Organization | [facility] | | | and [...] [place] | | | | | [address] | | + + + + + Care Team Providers + +------+ + | Care Marketing Officer Name | Role | Phone | + +------+ + | Denis Starks DO | PCP | | + +------+ + Encounter Details +--------+ + + + + | Date | Type | Department | Care Team | Description | +--------+ + + + + | 10/29/ | [facility] | [facility] | Aman Menezes, | S/P fusion of | | 2018 | Encounter | MED CTR XRAY [address] | [place] [address] | thoracic spine | | | | [place] | [address] [place] | | | | | [place] [address] | [place] [address] | | | | | [phone] | [phone] | | | | | | | [...]
--- OUTSIDE RECORDS SUMMARY | ~2017-11-23 | XMS | Encounter Summary ---
Demographics + + + | Address | [address] | | | [place] [address] | + + + | Home Phone | | + + + | Preferred Language | Unknown | + + + | Marital Status | | + + + | Alevism Affiliation | Unknown | + + + | Race | Unknown | + + + | Ethnic Group | Unknown | + + + Author + + + | Author | [facility] | | | and [place] | + + + | Organization | [facility] [...] [place] | | | | | [address] | | + + + + + Care Team Providers + +------+ + | Care Mail Handler Sorter Name | Role | Phone | [...] Description | +--------+--------+ + + + | 11/20/ | Refill | [facility] | Ronnie Schultz MD | Medication Refill | | 2017 | | HOSPITAL NEUROLOGY | [address] | | | | | CLINIC [address] | [place] | | | | | [address] [place], | [address] | | | | | [place] [address] | | | | | | [phone] | | | +--------+--------+ + + + [...]
--- OUTSIDE RECORDS SUMMARY | ~2017-11-23 | XMS | Encounter Summary ---
Demographics + + + | Address | [address] | | | [place] [address] | + + + | Home Phone | | + + + | Preferred Language | Unknown | + + + | Marital Status | | + + + | Voodoo Affiliation | Unknown | + + + | Race | Unknown | + + + | Ethnic Group | Unknown | + + + Author + + + | Author | [facility] | | | and [place] | + + + | Organization | [facility] | | | and [place] [...] [place] | | | | | [address] | | + + + + + Care Team Providers + +------+ + | Care Cyber Security Systems Engineer Name | Role | Phone | [...] [address] | | | | | [place] [address] | | | | | | [phone] | | | +--------+--------+ + + + [...]
--- OUTSIDE RECORDS SUMMARY | ~2017-11-23 | XMS | Encounter Summary ---
Demographics + + + | Address | [address] | | | [place] [address] | + + + | Home Phone | | + + + | Preferred Language | Unknown | + + + | Marital Status | | + + + | Nondenominational Affiliation | Unknown | + + + | Race | Unknown | + + + | Ethnic Group | Unknown | + + + Author + + + | Author | [facility] | | | and [place] | + + + | Organization | [facility] | | | and [place] | + + + | Address | Unknown | + + + | Phone | Unavailable | + + + Support + + + + + | Name | Relationship | Address | Phone | + + + + + | Mg Saunders | ECON | [address] | | | | | [place], [place] | | | | | [address] | | + + + + + Care Team Providers + +------+ + | Care Automotive Design Layout Drafter Name | Role | Phone | + [...] + + | 08/28/ | Office | [facility] [place] | Aman Menezes, | S/P fusion of | | 2018 | Visit | NEUROSURGERY [address] | [place] [address] | thoracic spine | | | | [address] | [address] [place] | (Primary Dx) | | | | [place], [place] | [place] [address] | | | | | [address] | [phone] | | | | | [phone] | | | +--------+---------+ + + + [...] encounter Instructions Patient Instructions - Solange Montanez, Pickle Processor - 08/28/2017 1500 PSTYou may now slowly [...] like sleeping, showering, do not use the [employer] race for these activities any longer but [...] your back and use good technique when pickler helper things and bending. Please do not take [...] from farzana sparrow original. NARAYAN Pedroza [address] [facility], [address] [place], [place] [id number] FAX: NEUROSURGERY FOLLOW-UP CHIEF COMPLAINT: Chief Complaint [...] much as directed, has been going to [employer] to walk around . She is still [...]
--- OUTSIDE RECORDS SUMMARY | ~2017-11-23 | XMS | Encounter Summary ---
Demographics + + + | Address | [address] | | | [place] [address] | + + + | Home Phone [...] [facility] | | | and [place] | + + + | Organization | [facility] | | | and [place] | [...] [place] | | | | | [address] | | + + + + + Care Team Providers + +------+ + | Care Lode Miner Blasting Name | Role | Phone | + [...] DR [address], | [place] [address] | spondylosis; | | | | [place] [address] | [phone] | Thoracic spinal | | | | [phone] | | stenosis; Back pain, | | [...] She went to see Dr. Roman in [facility] and he told her that all of [...] back location, unspecified back pain laterality, unspecified management internship nicity 5. Degeneration of lumbar or lumbosacral [...] | + + + | Urine | [facility] [address] [place], | | | [place] [address] | + + + + + | [...]
--- OUTSIDE RECORDS SUMMARY | ~2017-11-23 | XMS | Encounter Summary ---
Demographics + + + | Address | [address] | | | [place] [address] | + + + | Home Phone | | + + + | Preferred Language | Unknown | + + + | Marital Status | | + + + | Muslim Affiliation | Unknown | + + + | Race | Unknown | + + + | Ethnic Group | Unknown | + + + Author + + + | Author | [facility] | | | and [place] | + + + | Organization | [facility] | | | and [...] [place] | | | | | [address] | | + + + + + Care Team Providers + +------+ + | Care Machine Maintenance Mechanic Name | Role | Phone | [...] | spine S/P | [place], | [address] | | | | | spinal | [place] [address] | Phone: | | | | | fusion | Phone: | [phone] | | | | | Procedures | [phone] | Fax: | | | | | HIM 11/01/17 | Fax: | [phone] | | | | | | [phone] | | + + + + + + + Reason for Visit +---------+ + | Reason | Comments | +---------+ + | Post Op | 3 month SX: 07/26/17 | +---------+ + Encounter Details +--------+---------+ + + + | Date | Type | Department | Care Team | Description | +--------+---------+ + + + | 10/29/ | Office | [facility] | Daljit Roman, | Thoracic myelopathy | | 2018 | Visit | NEUROSURGERY [address] | DO [address] | (Primary Dx); S/P | | | | [address] | [address] [place], | fusion of thoracic | | | | [place], [place] | [place] [address] | spine; S/P spinal | | | | [address] | [phone] | fusion | | | | [phone] | | | +--------+---------+ + + + [...] from the original. Daljit Roman DO [address] [facility], [address] [place] [address] FAX: NEUROSURGERY FOLLOW-UP CHIEF COMPLAINT: Chief Complaint [...] and Plating; Surgeon: Daljit Roman DO; Location: [facility] MAIN OR CHOLECYSTECTOMY, LAPAROSCOPIC 08/28/10 LUMBAR LAMINECTOMY N/A 12/16/2014 Procedure: L4-5, L5-S1 Transforaminal Lumbar Interbody Fusion; Surgeon: Janelle Benedict; Location: [facility] MAIN OR LUMBAR LAMINECTOMY N/A 06/03/2015 Procedure: T6-7 Thoracic Transforaminal Interbody Fusion w/ T3-4, T4-5, T5-6, and T6-7 Po sterolateral Fusion; Surgeon: Daljit Roman DO; Location: [facility] MAIN OR LUMBAR SPINE SURGERY 02/24/2014 [facility] Steroid injection 08/2014 [place] THORACIC SPINE SURGERY N/A 07/26/2017 Procedure: T3-5 Transforaminal Thoracic Interbody Fusion with Removal and Replacement of h ardware at T3-7; Surgeon: Daljit Roman DO; Location: [facility] MAIN OR CURRENT MEDICATIONS: Current Outpatient Prescriptions [...]
--- OUTSIDE RECORDS SUMMARY | ~2017-11-23 | XMS | Encounter Summary ---
Demographics + + + | Address | [address] | | | [place] [address] | + + + | Home Phone | | + + + | Preferred Language | Unknown | + + + | Marital Status | | + + + | Buddhism Affiliation | Unknown | + + + | Race | Unknown | + + + | Ethnic Group | Unknown | + + + Author + + + | Author | [facility] | | | and [place] | + + + | Organization | [facility] | [...] [place] | | | | | [address] | | + + + + + Care Team Providers + +------+ + | Care Loom Blower Name | Role | Phone | + [...] [place], | | | | | [place] | [place] [address] | | | | | [address] | [phone] | | | | | [phone] | | | +--------+--------+ + + + [...]
--- OUTSIDE RECORDS SUMMARY | ~2017-11-23 | XMS | Encounter Summary ---
Demographics + + + | Address | [address] | | | [place] [address] | + + + | Home Phone | | + + + | Preferred Language | Unknown | + + + | Marital Status | | + + + | Roman Catholic Affiliation | Unknown | + + + | Race | Unknown | + + + | Ethnic Group | Unknown | + + + Author + + + | Author | [facility] | | | and [place] | + + + | Organization | [facility] | | | and [place] [...] [place] | | | | | [address] | | + + + + + Care Team Providers + +------+ + | Care Draw Tender Name | Role | Phone | + [...] | | | [address] [place], | [address] | intervertebral disc | | | | [place] [address] | | (Primary Dx); Lumbar | | | | [phone] | | spondylosis; | | | | [...] be different from the original. Patient Instructions [facility] Neurology Clinic Dr. Ronnie Schultz, Neurologist Date:09/24/2017 [...] such as cross word puzz le, and scrPianpianble, other puzzle games like Bountysource, Fashfix. Play computer/mobile applications such as [employer] and [employer] Toradol 60 mg IM for intractable thoracic and low back pain, pain scale 7-8/10 Any Questions please call CORTNEY Colby or Dr. Schultz at [facility] Neurology Clinic Back Pain (Acute or Chronic) [...] are taking other medicines. You may use yxnx-eag-bcjbrnc medicine as directed on the bottle to [...] groin or genital area Date Last Reviewed: 02/10/201619994715-3344 [employer]. [address] [place] [address]. All righ ts reserved. This information is not intended as a substitute for professional medical care. Always follow your healthcare professional's instructions. Pain Management: Chronic You have a painful condition that has required frequent use of opioid pain medicine. Your [facility] provider wants you to receive the best possible care for your problem. To achieve this,you must have apersonal doctor who can supervise a treatment plan for you. You may contact one of the doctors whose name has been given to you. Or you may locate a [facility] doctor on your own. If your doctor [...] that it is advisable. Date Last Reviewed: 10/10/201619997619-0455 [employer]. [address] [place] [address], [place] [address]. All righ ts reserved. This information is [...] healthcare provider right away. Date Last Reviewed: 12/10/201619993281-2219 [employer]. [address] [place] [address], [place] [address]. All righ ts reserved. This information is not intended as a substitute for professional medical care. Always follow your healthcare professional's instructions. in this encounter Progress Notes Ronnie Schultz MD - 09/24/2017 1030 PSTFormatting of this note may be different from the o riginal. Patient: Ying Saunders Medical Record: [id number] Date of Services: 09/24/2017 Referring Doctor: Denis [...] initial surgeon 2014. The surgery was performed [facility] with Dr. Barrera enriquez. Her pain syndrome is slightly improved in the thoracic spine to pain but still persist s in the cervical and lumbosacral spine regions. She's presently treated for chronic pain syndrome using [place] 10 / 3 25, 2 tablets every [...] other treatment options such as acupuncture treatments, bmxu-cww-igmeetx creams and patches, cortisone shots, relaxation therapy, [...] CEREBELLAR EXAMINATION: There is no dysmetria on mzyiyd-kx-sgjo test. MISCELLANEOUS EXAM: Atraumatic, no evidence of [...] sensory modalities and reflexes Plan: Patient Instructions [facility] Neurology Clinic Dr. Ronnie Schultz, Neurologist Date:09/24/2017 [...] le, and scrabble, other puzzle games like Bountysource, Fashfix. Play computer/mobile applications such as [employer] and [employer] Any Questions please call CORTNEY Colby or Dr. Schultz at [facility] Neurology Clinic Back Pain (Acute or Chronic) [...] are taking other medicines. You may use cdat-rqn-hkobksw medicine as directed on the bottle to [...] genital area Date Last Reviewed: 02/10/2016 [employer]. [address] [place] [address]. All righ ts reserved. This information is not intended as a substitute for professional medical care. Always follow your healthcare professional's instructions. Pain Management: Chronic You have a painful condition that has required frequent use of opioid pain medicine. Your [facility] provider wants you to receive the best possible care for your problem. To achieve this,you must have apersonal doctor who can supervise a treatment plan for you. You may contact one of the doctors whose name has been given to you. Or you may locate a [facility] doctor on your own. If your doctor [...] that it is advisable. Date Last Reviewed: 10/10/201619997778-1496 [employer]. [address] [place] [address]. All righ ts reserved. This information is [...] healthcare provider right away. Date Last Reviewed: 12/10/201619999778-2378 [employer]. [address] [place] [address], [place] [address]. All righ ts reserved. This information is not intended as a substitute for professional medical care. Always follow your healthcare professional's instructions. Ronnie Schultz MD09/24/201711:41 Electronically signedDenise Villalpando CC GAME MANAGER - 09/24/2017 1030 PSTToradol injection give n [...]
--- OUTSIDE RECORDS SUMMARY | ~2017-11-23 | XMS | Encounter Summary ---
Demographics + + + | Address | [address] | | | [place] [address] | + + + | Home Phone | | + + + | Preferred Language | Unknown | + + + | Marital Status | | + + + | Bahai Affiliation | Unknown | + + + | Race | Unknown | + + + | Ethnic Group | Unknown | + + + Author + + + | Author | [facility] | | | and [place] | + + + | Organization | [facility] | | | and [place] [...] [place] | | | | | [address] | | + + + + + Care Team Providers + +------+ + | Care Hazard Mitigation Officer Name | Role | Phone | + +------+ + | Denis Starks DO | PCP | | + +------+ + Encounter Details +--------+---------+ + + + | Date | Type | Department | Care Team | Description | +--------+---------+ + + + | 03/30/ | Office | [facility] | Aman Menezes, | Keloid (Primary Dx) | | 2018 | Visit | NEUROSURGERY [address] | [place] [address] | | | | | [address] | [address] [place] | | | | | [place], [place] | [place] [address] | | | | | [address] | [phone] | | | | | [phone] | | | +--------+---------+ + + + [...] this encounter Progress Notes Jodie Flower I, Client Technical Support Associate - 11/08/2017 1030 PDT Subjective:Patient is overall [...] time. The above note was dictated using [employer] voice recognition software. It may have not been p roofread in entirety. Minor errors in grammar may occur. in this encounter Plan of Treatment Not on fileas of this encounter Visit Diagnoses + + | Diagnosis | + + | Keloid - Primary | + + | Keloid scar | + +
--- OUTSIDE RECORDS SUMMARY | ~2017-11-23 | XMS | Encounter Summary ---
Demographics + + + | Address | [address] | | | [place] [address] | + + + | Home Phone [...] Author | [facility] | | | and [place] | + + + | Organization | [facility] | | | and [place] [...] [place] | | | | | [address] | | + + + + + Care Team Providers + +------+ + | Care Apparel Fashion Designer Name | Role | Phone | + [...] [place], | | | | | [place] | [place] [address] | | | | | [address] | [phone] | | | | | [phone] | | | +--------+--------+ + + + [...]
--- OUTSIDE RECORDS SUMMARY | ~2017-11-23 | XMS | Encounter Summary ---
Demographics + + + | Address | [address] | | | [place] [address] | + + + | Home Phone | | + + + | Preferred Language | Unknown | + + + | Marital Status | | + + + | Hinduism Affiliation | Unknown | + + + | Race | Unknown | + + + | Ethnic Group | Unknown | + + + Author + + + | Author | [facility] | | | and [place] | + + + | Organization | [facility] | | | and [place] [...] [place] | | | | | [address] | | + + + + + Care Team Providers + +------+ + | Care Mud Tank Operator Name | Role | Phone | [...] [place], | | | | | [place], [place] | [place] [address] | | | | | [address] | [phone] | | | | | [phone] | | | +--------+--------+ + + + [...]
[~2017-11-23 10:45] MED LIST changes: +AMITRIPTYLINE H25 MG PO; +BACTROBAN15 GM TOP; +DURAGESIC1 EACH TD; +ONDANSETRON ODT8 MG PO; +TRAZODONE HCL50 MG PO; +ZANAFLEX4 M1 PO; +ZONEGRAN100 MG PO
[2017-11-23] MEDS ORDERED: BACTRIM DS TAB1 EACH PO (11:24)
== END 2017-11-23 11:50 | disposition home or self-care (01) ==
LOC: ED 10:45
DX: T81.31XA Disruption of external operation (surgical) wound, not elsewhere classified, initial encounter (principal); Z88.0 Allergy status to penicillin; Z88.1 Allergy status to other antibiotic agents; Z88.5 Allergy status to narcotic agent; Z79.899 Other long term (current) drug therapy
CPT/HCPCS: 99283

== ENCOUNTER 2018-04-29 19:15 | Emergency (ER) | payer OTHER ==
[~2018-04-29] VITALS: Ht 170.2 cm; Wt 63.5 kg
--- OUTSIDE RECORDS SUMMARY | ~2018-04-29 | XMS | Encounter Summary ---
Demographics + + + | Address | [address] | | | [place] [address] | + + + | Home Phone | | + + + | Preferred Language | Unknown | + + + | Marital Status | | + + + | Yarsanism Affiliation | Unknown | + + + | Race | Unknown | + + + | Ethnic Group | Unknown | + + + Author + + + | Author | [facility] | | | and [place] | + + + | Organization | [facility] | | | and [place] | + + + | Address | Unknown | + + + | Phone | Unavailable | + + + Support + + + + + | Name | Relationship | Address | Phone | + + + + + | Mg Saunders | ECON | [address] | | | | | [place] | | | | | [address] | | + + + + + Care Team Providers + +------+ + | Care Automobile Body Customizer Name | Role | Phone | + +------+ + | Denis Starks DO | PCP | | + +------+ + Reason for Visit + + + | Reason | Comments | + + + | Non Healing Wound | | + + + Encounter Details +--------+---------+ + + + | Date | Type | Department | Care Team | Description | +--------+---------+ + + + | 04/15/ | Office | [facility] | Tian Bhandari, | Delayed surgical | | 2018 | Visit | [address] | [place] | wound healing, | | | | Street [place], | [place], [place] | subsequent encounter | | | | [place] [address] | [address] | (Primary Dx); | | | | [phone] | | History of wound | | | | | | infection; Wound | | | | | | dehiscence; Thoracic | | | | | | spinal stenosis | +--------+---------+ + + + Social History + +-------+ [...] + + + as of this encounter Last Filed Vital Signs + + + + | Vital Sign | Reading | Time Taken | + + + + | Blood Pressure | 102/60 | 04/15/2018930 PDT | + + + + | Pulse | 72 | 04/15/2018930 PDT | + + + + | Temperature | 36.8 C (98.2 F) | 04/15/2018930 PDT | + + + + | Respiratory Rate | - | - | + + + + | Oxygen Saturation | - | - | + + + + | Inhaled Oxygen | - | - | | Concentration | | | + + + + | Weight | - | - | + + + + | Height | - | - | + + + + | Body Mass Index | - | - | + + + + in this encounter Functional Status + + + [...] + + + as of this encounter Instructions Patient Instructions - Tian Bhandari ARNP - 04/15/2018 0915 PDTContinue Iodosorb gel and protective dressing.in this encounter Progress Notes Tian Bhandari ARNP - 04/15/2018 0915 PDTFormatting of this note may be different from th kyara original. Subjective: Patient ID: Ying Saunders is a 27 y.o. female. Non Healing Wound She was originally treated more than 14 days ago. The maximum temperature noted was less th an 100.4 F. There has been colored (serous) discharge from the wound. There is no redness pr esent. There is no swelling present. The pain has not changed. She has no difficulty moving the affected extremity or digit. Patient's medications, allergies, past medical, surgical, social and family histories were obtained and reviewed as appropriate. Review of Systems Skin: Positive for poor wound healing. Objective: BP 102/60 | Pulse 72 | Temp 36.8 C (98.2 F) (Temporal) Physical Exam Skin: Assessment: CC: Delayed healing surgical wound. S: States that over the past several days there has been greenish drainage per her from the wound and a large bubble over the wound. Also has increase wound pain. O: 27-year-old, frail appearing, thin female who walks with the aid of a cane, is here toda y for follow-up of delayed healing surgical wound. On assessment there is an open wound mid thoracic spine that presents as a large bubble. The bubble consist of mucus-like tissue. There is no periwound redness, heat or swelling. After preparing the area with Betadine the tissue was opened and a wound culture obtained. No exudate present. Wound was then treate d with Iodosorb gel and covered with a protective dressing. A: Delayed healing surgical wound with no change in circumference and slight increase in de pth since her March 20 appointment. She did have a recent MRI done of the area but no repor t is available at this time. Hopefully the MRI will give an indication as to why the surgic al wound does not go on to heal. Plan: Continue with the Iodosorb gel and protective dressing until culture report is available. in this encounter Plan of Treatment +--------+ + + + + | Date | Type | Specialty | Care Team | Description | +--------+ + + + + | 05/23/ | Appointment | Infusion Therapy | | | | 2017 | | | | | +--------+ + + + + | 06/09/ | Office | Neurology | Derrick, | | | 2017 | Visit | | [address] | | | | | [address] [place], | | | | | | [place] [address] | | | | | | [phone] | | | | | | | | +--------+ + + + + | 09/22/ | Office | Neurology | Ronnie Schultz MD | | | 2018 | Visit | | [address] | | | | | | [place] | | | | | | [address] | | | | | | | | +--------+ + + + + as of this encounter Procedures + +--------+ + + + | Procedure Name | Priori | Date/Time | Associated Diagnosis | Comments | | | ty | | | | + +--------+ + + + | CULTURE, WOUND, | Routin | 04/15/2018 | Delayed surgical | Results for this | | SMEAR | e | 0956 PDT | wound healing, | procedure are in the | | | | | subsequent encounter | results section. | + +--------+ + + + in this encounter Results Culture, Wound, Smear (04/15/2018 0956) + + + + + | Component | Value | Ref Range | Performed At | + + + + + | Culture | No Growth | | [facility] | | | | | [facility] | | | | | [facility] - | | | | | LABORATORY | + + + + + | Gram Stain Result | 2+ White Blood Cells | | [facility] | | | | [facility] | | | | | [facility] | + + + + + | Gram Stain Result | 1+ Epithelial cells | | [facility] | | | | [facility] - | | | | | [facility]ORY | + + + + + | Gram Stain Result | No organisms seen | | [facility] | | | | | [facility] - | | | | | [facility]ATORY | + + + + + + + | Specimen | + + | Body Fluid - Back, | | Upper, Mid | + + + + + + + | Performing | Address | City/State/Zipcode | Phone Number | | Organization | | | | + + + + + | [facility] | [address] | [place], [place] | [phone] | | [facility] | | [address] | | | - LABORATORY | | | | + + + + + | [facility] | [address] | [place], [place] | | | [facility] | | [address] | | | - LABORATORY | | | | + + + + + in this encounter Visit Diagnoses + + | Diagnosis | + + | Delayed surgical wound healing, subsequent encounter - Primary | + + | History of wound infection | + + | Wound dehiscence | + + | Disruption of external operation (surgical) wound | + + | Thoracic spinal stenosis | + + | Spinal stenosis of thoracic region | + +"
--- OUTSIDE RECORDS SUMMARY | ~2018-04-29 | XMS | Encounter Summary ---
Demographics + + + | Address | [address] | | | [place] [address] | + + + | Home Phone | | + + + | Preferred Language | Unknown | + + + | Marital Status | | + + + | Congregation Affiliation | Unknown | + + + | Race | Unknown | + + + | Ethnic Group | Unknown | + + + Author + + + | Author | [facility] | | | and [place] | + + + | Organization | [facility] | | | and [place] | + + + | Address | Unknown | + + + | Phone | Unavailable | + + + Support + + + + + | Name | Relationship | Address | Phone | + + + + + | Mg Saunders | ECON | [address] | | | | | [place], [place] | | | | | [address] | | + + + + + Care Team Providers + +------+ + | Care Puddler Pile Driving Name | Role | Phone | + +------+ + | Denis Starks DO | PCP | | + +------+ + Encounter Details +--------+ + + + + | Date | Type | Department | Care Team | Description | +--------+ + + + + | 04/10/ | Imaging | [facility] | Provider, | | | 2018 | Exam | [facility] | Historical, [address] | | | | | IMAGING | [address] | | | | | [phone] | [place] [address] | | +--------+ + + + + Social History + +-------+ [...] as of this encounter Plan of Treatment +--------+ + [...] | | | | | [address] [place], | | | | | | [place] [address] | | | | | | [phone] | | | | | | | | +--------+ + + + + | 09/22/ | Office | Neurology | Ronnie Schultz MD | | | 2018 | Visit | | [address] | | | | | | [place] | | | | | | [address] | | | | | | | | +--------+ + + + + as of this encounter Procedures + +--------+ + + + | Procedure Name | Priori | Date/Time | Associated Diagnosis | Comments | | | ty | | | | + +--------+ + + + | MRI THORACIC SPINE | Routin | 04/10/2018 | | Results for this | | WO CONTRAST | e | 1710 PDT | | procedure are in the | | | | | | results section. | + +--------+ + + + in this encounter Results MRI Thoracic Spine wo Contrast (04/10/2018 1710) + + + | Narrative | Performed At | + + + | External films for comparison only | [facility] | | | | | No results will be in the chart. | | + + + + +---------+ + + | Performing | Address | City/State/Zipcode | Phone Number | | Organization | | | | + +---------+ + + | [facility] | | | | + +---------+ + + in this encounter Visit Diagnoses Not on filein this encounter"
--- OUTSIDE RECORDS SUMMARY | ~2018-04-29 | XMS | Encounter Summary ---
Demographics + + + | Address | [address] | | | [place] [address] | + + + | Home Phone | | + + + | Preferred Language | Unknown | + + + | Marital Status | | + + + | Mandaen Affiliation | Unknown | + + + | Race | Unknown | + + + | Ethnic Group | Unknown | + + + Author + + + | Author | [facility] | | | and [place] | + + + | Organization | [facility] | | | and [place] | [...] [place], [place] | | | | | [address] | | + + + + + Care Team Providers + +------+ + | Care Arm Rest Builder Name | Role | Phone | + +------+ + | Denis Starks DO | PCP | | + +------+ + Reason for Visit + + + | Reason | Comments | + + + | Paperwork | | + + + Encounter Details +--------+ + + + + | Date | Type | Department | Care Team | Description | +--------+ + + + + | 04/10/ | Telephone | [facility] | Ronnie Schultz MD | Paperwork | | 2018 | | HOSPITAL NEUROLOGY | [address] | | | | | CLINIC [address] | [place] | | | | | [address] [place], | [address] | | | | | [place] [address] | | | | | | [phone] | | | +--------+ + + + [...] | | | | | | [place] [address] | | | | | | [phone] | | | | | | | | +--------+ + + + + | 09/22/ | Office | Neurology | Ronnie Schultz MD | | | 2018 | Visit | | [address] | | | | | | [place] | | | | | | [address] | | | | | | | | +--------+ + + + + as of this encounter Visit Diagnoses Not on filein this encounter"
--- OUTSIDE RECORDS SUMMARY | ~2018-04-29 | XMS | Encounter Summary ---
Demographics + + + | Address | [address] | | | [place] [address] | + + + | Home Phone | | + + + | Preferred Language | Unknown | + + + | Marital Status | | + + + | Caodaism Affiliation | Unknown | + + + | Race | Unknown | + + + | Ethnic Group | Unknown | + + + Author + + + | Author | [facility] | | | and [place] | + + + | Organization | [facility] | | | and [place] [...] [place], [place] | | | | | [address] | | + + + + + Care Team Providers + +------+ + | Care Marketing Analytics Specialist Name | Role | Phone | + +------+ + | Denis Starks DO | PCP | | + +------+ + Encounter Details +--------+ + + + + | Date | Type | Department | Care Team | Description | +--------+ + + + + | 04/18/ | Ancillary | [facility] | Provider, | | | 2018 | Orders | [facility] | [address] | | | | | IMAGING | [address] | | | | | [phone] | [place] [address] | | +--------+ + + + + [...] +--------+ + + + + | 05/23/ Appointment | Infusion Therapy | | | | 2017 | | | | | +--------+ + + + + | 06/09/ | Office | Neurology | Derrick, | | | 2017 | Visit | | [address] | | | | | | [address] [place], | | | | | | [place] [address] | | | | | | [phone] | | | | | | | | +--------+ + + + + | 09/22/ | Office | Neurology | Ronnie Schultz MD | | | 2018 | Visit | | [address] | | | | | | [place], [place] | | | | | | [address] | | | | | | | | +--------+ + + + + as of this encounter Results MRI Thoracic Spine wo [...]
--- OUTSIDE RECORDS SUMMARY | ~2018-04-29 | XMS | Encounter Summary ---
Demographics + + + | Address | [address] | | | [place] [address] | + + + | Home Phone | | + + + | Preferred Language | Unknown | + + + | Marital Status | | + + + | Methodist Affiliation | Unknown | + + + | Race | Unknown | + + + | Ethnic Group | Unknown | + + + Author + + + | Author | [facility] | | | and [place] | + + + | Organization | [facility] | | | and [place] | + + + | Address | Unknown | + + + | Phone | Unavailable | + + + Support + + + + + | Name | Relationship | Address | Phone | + + + + + | Mg Saunders | ECON | [address] | | | | | [place] | | | | | [address] | | + + + + + Care Team Providers + +------+ + | Care Book Sorter Name | Role | Phone | + +------+ + | Denis Starks DO | PCP | | + +------+ + Reason for Visit + + + | Reason | Comments | + + + | Follow-up | chronic pain, peripheral neuropathy | + + + Encounter Details +--------+---------+ + + + | Date | Type | Department | Care Team | Description | +--------+---------+ + + + | 02/05/ | Office | [facility] | Derrick, | Bilateral carpal | | 2018 | Visit | [facility] | [place], [address] | tunnel syndrome | | | | CLINIC [address] | [facility], | (Primary Dx); | | | | [address] [place], | [place] [address] | Cervical | | | | [place] [address] | [phone] | radiculopathy; | | | | [phone] | | Paresthesia and pain | | | | | | of both upper | | | | | | extremities; | | | | | | Degeneration of | | | | | | lumbar or | | | | | | lumbosacral | | | | | | intervertebral disc; | | | | | | Lumbar spondylosis; | | | | | | Thoracic spinal | | | | | | stenosis; Chronic | | | | | | pain syndrome; | | | | | | Chronic neck and | | | | | | back pain | +--------+---------+ + + + Social History [...] this encounter Last Filed Vital Signs + +---------+ + | Vital Sign | Reading | Time Taken | + +---------+ + | Blood Pressure | 104/62 | 02/05/20181432 PDT | + +---------+ + | Pulse | 81 | 02/05/20181432 PDT | + +---------+ + | Temperature | - | - | + +---------+ + | Respiratory Rate | 16 | 02/05/20181432 PDT | + +---------+ + | Oxygen Saturation | 98% | 02/05/20181432 PDT | + +---------+ + | Inhaled Oxygen | - | - | | Concentration | | | + +---------+ + | Weight | - | - | + +---------+ + | Height | - | - | + +---------+ + | Body Mass Index | - | - | + +---------+ + in this encounter Functional Status + [...] of this encounter Instructions Patient Instructions - Bradley Meza, SHONNA - 02/05/2018 1509 PDTFormatting of this note may be different from the original. Start to taper off the zonisamide. - Start taking the zonisamide twice daily for 1 week. -Start taking it once daily for 1 week. -Decrease dose to every other day for 1 weeks, then stop. Back Pain (Acute or Chronic) Back pain is one of the most common problems. The good news is that most people feel better in 1 to 2 weeks, and most of the rest in 1 to 2 months. Most people can remain active. People who have paindescribe it differently noteveryone is the same. The pain can be sharp, stabbing, shooting, aching, cramping or burning. Movement, standing, bending, lifting, sitting, or walking may worsen pain. It can be localized to one spot or area, or it can be more generalized. It can spread or radiate upwards, to the front, or go down your arms or legs (sciatica). It can cause muscle spasm. Most of the time, mechanical problems with the musclesor spine cause the pain. Mechanical problemsare usually caused by an injury to the muscles or ligaments. While illness can ca use back pain, it is usually not caused by a serious illness. Mechanical problems include: Physical activity such as sports, exercise, work, or normal activity Overexertion, lifting, pushing, pulling incorrectly or too aggressively Sudden twisting, bending, or stretching from an accident, or accidental movement Poor posture Stretching or moving wrong, without noticing pain at the time Poor coordination, lack of regular exercise (check with your doctor about this) Spinal disc disease or arthritis Stress Pain can also be related to , or illness like appendicitis, bladder or kidney infe ctions, pelvic infections, and many other things. Acute back pain usually gets better in1 to 2 weeks. Back pain related to disk disease, ar thritis in the spinal joints or spinal stenosis (narrowing of the spinal canal) can become c hronic and last for months or years. Unless you had a physical injury (for example, a car accident or fall) X-rays are usually n ot needed for the initial evaluation of back pain. If pain continues and does not respond to medical treatment, X-rays and other tests may be needed. Home care Try these home care recommendations: When in bed, tryto find a position of comfort. A firm mattress is best. Try lying flat on your back with pillows under your knees. You can also try lying on your side with your k nees bent up towards your chest and a pillow between your knees. At first, do not try to stretch out the sore spots. If there is a strain, it is not like the good soreness you get after exercising without an injury. In this case, stretching may make it worse. Don't sit for long periods, as in a long car ride or during othertravel. This puts mor e stress on the lower back than standing or walking. During the first 24 to 72 hours after an acute injury or flare up of chronic back pain, apply an ice pack to the painful area for 20 minutes and then remove it for 20 minutes. Do t his over a period of 60 to 90 minutes or several times a day. This will reduce swelling and pain. Wrap the ice pack in a thin towel or plastic to protect your skin. You can start with ice, then switch to heat. Heat (hot shower, hot bath, or heating pad) reduces pain and works well for muscle spasms. Heat can be applied to the painful area for 20 minutes then remove it for 20 minutes. Do this over a period of 60 to 90 minutes or sever al times a day. Do not sleep on a heating pad. It can lead to skin carney or tissue damage. You can alternate ice and heat therapy. Talk with your doctor aboutthe best treatment for your back pain. Therapeutic massage can help relax the back muscles without stretching them. Be aware of safe lifting methods and do not lift anything without stretching first. Medicines Talk to your doctor before using medicine, especially if you have other medical problems or are taking other medicines. You may use zgeg-itq-qqhstsz medicine as directed on the bottle to control pain, unless another pain medicine was prescribed. If you have chronic conditions like diabetes, liver or kidney disease, stomach ulcers, or gastrointestinal bleeding, or are taking blood thinners, talk to your doctor before taking any medicine. Be careful if you are given a prescription medicines, narcotics, or medicine for muscle spasms. They can cause drowsiness, affect your coordination, reflexes, and judgement. Do not drive or operate heavy machinery. Follow-up care Follow up with your healthcare provider, or as advised. A radiologist will review any X-rays that were taken. Your provide will notify you of any n ew findings that may affect your care. Call 911 Call 911 if any of the following occur: Trouble breathing Confusion Very drowsy or trouble awakening Fainting or loss of consciousness Rapid or very slow heart rate Loss of bowel or bladder control When to seek medical advice Call your healthcare provider right away if any of these occur: Pain becomes worse or spreads to your legs Weakness or numbness in one or both legs Numbness in the groin or genital area Date Last Reviewed: 02/10/201619993429-5696 [employer]. [address] [place] [address], [place] [address]. All righ ts reserved. This information is not intended as a substitute for professional medical care. Always follow your healthcare professional's instructions. Pain Management: Chronic You have a painful condition that has required frequent use of opioid pain medicine. Your [facility], located within [facility] provider wants you to receive the best possible care for your problem. To achieve this,you must have apersonal doctor who can supervise a treatment plan for you. You may contact one of the doctors whose name has been given to you. Or you may locate a [facility] doctor on your own. If your doctor determines that you need pain medicine on an emergency basis,he or she amberly uld provide you with apain contract. This is a letter from your doctor that describes what pain medicine you may receive, how much, and how often. You sign it, agreeing to the terms of the treatment plan. Bring this with you each time you come to this facility. It will allo w you to getthe proper treatment with minimal delay. Note In the future, you will not be able to receive opioid pain medicine from this facility with out a pain contract or telephone approval from your personal healthcare provider. Your doctor must update your pain contract often. If itis not current,this facility may not accept it. A pain contract does not guarantee that you will get the medicines you reque st. The doctor treating you has the right to withhold medicines if he or she thinks that it is advisable. Date Last Reviewed: 10/10/2016 [employer]. [address] [place] [address]. All righ ts reserved. This information is not intended as a substitute for professional medical care. Always follow your healthcare professional's instructions. The Cycle of Chronic Pain Paincan affect virtually all parts ofyour life. Your sleep, mood, activity, and energy level can all be disrupted by pain. Being tired, depressed, and out of shapecan makethe pain worse and harder to cope with. So a "pain cycle" begins. Note for family and friends It can be difficult to help care for a friend or family member with chronic pain. Talk to a healthcare provider or mental health professional who can help you learn how to care for yo urself and your loved one in a healthy manner. Date Last Reviewed: 12/10/2016 [employer]. [address] [place] [id number]. All righ ts reserved. This information is not intended as a substitute for professional medical care. Always follow your healthcare professional's instructions. Understanding Chronic Pain Chronic means ongoing. Pain is called chronic when it lasts over a long period of amisha e, at least 3 months. This includes pain that you feel regularly, even if it comes and goes. Chronic pain may be due to continuing injury or disease, or it may be due to problems with the body s pain-control system. An example of this is fibromyalgia. Chronic stimulus Chronic pain may be from chronic stimulation of the pain system. This means the cause of pa in is not cured. The cause may be an untreated injury or health problem. Examples of these a re joint degeneration (arthritis) and back injury. Other common causes are nervous system da mage (neuropathic pain) and headaches. With this type of pain, both the pain and the conditi on that is causing it must be treated. Chronic pain syndrome Sometimes, no cause can be found for a person's chronic pain. Some people with chronic pain develop chronic pain syndrome. This includes anxiety and depression, anger, and changed lif estylein addition to the pain. It is important to seek treatment for these pain-associated problems even when the chronic pain itself can't be cured. Date Last Reviewed: 12/10/201619992954-1432 [employer]. [address] [place] [address]. All righ ts reserved. This information is not intended as a substitute for professional medical care. Always follow your healthcare professional's instructions. in this encounter Progress Notes Bradley Meza, SHONNA - 02/05/2018 1445 PDTFormatting of this note may be different from the original. Patient: Ying Saunders Medical Record: [id number] Date of Services: 02/05/2018 Referring Doctor: Denis Starks DO Chief Complaint: Migraines, chronic neck pain, chronic thoracic pain, chronic low back pain History of Present Illness: The patient presents to the Neurology Clinic today for follow u p. The patient reports that her migraines have not been an issue for her. She does endorse continued neck, thoracic and low back pain. She is currently being follow ed by a pain clinic. They plan to transition her from [place] to buprenorphine to help with h er pain symptoms. She is also taking CBD oil, tizanidine, and zonisamide and nortriptyline to help with her pain. The patient endorses new onset numbness and tingling in her bilateral hands. She reports t hat she also has a burning pain that comes and goes in the area. She also reports paresthes ias down both of her arms. This is new for about the past 6-8 weeks. Patient Active Problem List Diagnosis Date Noted Chronic neck and back pain 02/05/2018 Overview Note: (last update: 02/05/2018) Patient had surgery on her lumbar spine in February 2014, a lumbar laminectomy in December 2014 , lumbar laminectomy in May 2015, a thoracic spinal fusion in May 2016, fusion of he r cervical spine in December 2016 and a thoracic spine surgery in July 2017. Patient is currently being managed by a pain clinic. Plan to transition from [place] to uprenorphine. Chronic pain syndrome 09/24/2017 Thoracic spinal stenosis 06/08/2015 4-quinolones allergy 03/16/2014 Allergy to penicillin 03/16/2014 Lumbar spondylosis 01/20/2014 Iron deficiency anemia secondary to inadequate dietary iron intake 06/29/2013 Overview Note: (last update: 09/24/2017) Overview: Pt w/ HCT 28 06/28/13 while in hosp--started on FeSO4 325 mg BID Backache 02/23/2013 Overview Note: (last update: 09/24/2017) Overview: Left SI tenderness, DDD (by xrays), and L5/S1 radiculopathy, evaled by Dr. Rivers 02/03/13. Dx name changed by system update 05/03/2017 Degeneration of lumbar or lumbosacral intervertebral disc 02/23/2013 Overview Note: (last update: 09/24/2017) Overview: per Ortho (Dr. Rivers) Thoracic neuritis 02/23/2013 Overview Note: (last update: 09/24/2017) Overview: per Ortho (Dr. Rivers) Pain in joint, lower leg 12/24/2012 Calculus of kidney 07/15/2012 Overview Note: (last update: 09/24/2017) Overview: Suspected renal colic during , severe back pains assoc w/ hematuria. Past Surgical History: Procedure Laterality Date APPENDECTOMY 07/26/2013 [place] CERVICAL SPINE SURGERY N/A 12/14/2016 Procedure: C4-5, C5-6 Anterior Cervical Discectomy w/ Fusion and Plating; Surgeon: Daljit Roman DO; Location: [facility] OR CHOLECYSTECTOMY, LAPAROSCOPIC 08/28/10 LUMBAR LAMINECTOMY N/A 12/16/2014 Procedure: L4-5, L5-S1 Transforaminal Lumbar Interbody Fusion; Surgeon: Janelle Benedict O; Location: [facility] MA[facility] OR LUMBAR LAMINECTOMY N/A 06/03/2015 Procedure: T6-7 Thoracic Transforaminal Interbody Fusion w/ T3-4, T4-5, T5-6, and T6-7 Po sterolateral Fusion; Surgeon: Daljit Roman DO; Location: [facility] MA[facility] OR LUMBAR SPINE SURGERY 02/24/2014 [place] Steroid injection 08/2014 [place] THORACIC SPINE SURGERY N/A 07/26/2017 Procedure: T3-5 Transforaminal Thoracic Interbody Fusion with Removal and Replacement of h ardware at T3-7; Surgeon: Daljit Roman DO; Location: [facility] MA[facility] OR THORACIC SPINE SURGERY 06/11/2016 spinal fusion T4-T7- at [facility] with Dr. Mullen Allergies Allergen Reactions Ciprofloxacin Anaphylaxis Penicillins Anaphylaxis Propofol Other (See Comments) Seizures. Pt states she recently had propofol with no side effects or reaction. Duloxetine Rash Burning sensation on her face Hydromorphone Other (See Comments) Headaches from the pill form tolerates IV form Morphine Other (See Comments) Chest pain and stomach pain from the pill form. IV form can tolerate but doesn't really w ork for her. Vancomycin Hives and Other (See Comments) Burning feels like head is on fire Erythromycin Rash Current Medications: acyclovir HYDROcodone-acetaminophen lactulose nortriptyline ondansetron polyethylene glycol SPRINTEC 28 SUMAtriptan tiZANidine TRAZODONE HCL PO VENTOLIN HFA zonisamide Review of Symptoms: CONSTITUTIONAL: No weight loss, fever, chills, weakness or fatigue. HEENT: Eyes: No visual loss, blurred vision, double vision or yellow sclerae. Ears, Nose, Throat: No hearing loss, sneezing, congestion, runny nose or sore throat. SKIN: No rash or itching. CARDIOVASCULAR: No chest pain, chest pressure or chest discomfort. No palpitations or edema . RESPIRATORY: No shortness of breath, cough or sputum. GASTROINTESTINAL: No anorexia, nausea, vomiting or diarrhea. No abdominal pain or blood. GENITOURINARY: No burning on urination. NEUROLOGICAL: No headache, dizziness, syncope, paralysis, ataxia. No change in bowel or errol dder control. + Numbness and tingling in hands, paresthesias of arms MUSCULOSKELETAL: No muscle, joint pain or stiffness. + Chronic neck, thoracic, and low back pain +myalgias PSYCHIATRIC: No depression or anxiety. Neurological Examination: Vitals: 02/05/18 1433 BP: 104/62 Pulse: 81 Resp: 16 PainSc: 7 PainLoc: Back Mental status: The patient is alert, attentive, and oriented. Speech is clear and fluent with good repetit ion, comprehension, and naming. Cranial nerves: CN II: Visual tyson are full to confrontation. Fundoscopic exam is normal with sharp discs and no vascular changes. Pupils are 4 mm and briskly reactive to light with accomodation. CN III, IV, : Gaze in conjugate. No blurred or double vision. No visual field cuts. EOM intact. CN V: Facial sensation is intact. CN VII: Face is symmetric with normal eye closure and smile. CN VII: Hearing is normal to rubbing fingers CN IX, X: Palate elevates symmetrically. Phonation is normal. CN XI: Head turning and shoulder shrug are intact CN XII: Tongue is midline with normal movements and no atrophy. Motor: There is no pronator drift of out-stretched arms. Muscle bulk and tone are normal. Strength is 5/5 bilaterally. Reflexes: Reflexes are 1+ and symmetric at the biceps, triceps, knees, and ankles. Sensory: Light touch, pinprick, position sense, and vibration sense are impaired in all extremities. + Tinel's and Phalen's tests and both wrists Coordination: Rapid alternating movements and fine finger movements are intact. There is no dysmetria on cjrlmt-uj-mrqr and uqdd-jafc-rpmx. There are no abnormal or extraneous movements. Romberg is absent. Gait/Stance: Antalgic gait, ambulates with walker, wide-based stance Clinical Impression: ICD-10-CM ICD-9-CM 1. Bilateral carpal tunnel syndrome G56.03 354.0 EMG Study- Upper Extremity 2. Cervical radiculopathy M54.12 723.4 EMG Study- Upper Extremity 3. Paresthesia and pain of both upper extremities R20.2 782.0 EMG Study- Upper Extremity M79.601 729.5 M79.602 4. Degeneration of lumbar or lumbosacral intervertebral disc M51.37 722.52 5. Lumbar spondylosis M47.816 721.3 6. Thoracic spinal stenosis M48.04 724.01 7. Chronic pain syndrome G89.4 338.4 8. Chronic neck and back pain M54.2 723.1 M54.9 724.5 Plan: Possible carpal tunnel syndrome: We discussed that her symptoms could be due to carpal malka juan syndrome and cervical radiculopathy. Plan to do an EMG of the upper extremities to eval uate cause of her new symptoms. Current pain syndrome: Continue to follow with the pain clinic. Transition from [place] to b uprenorphine. Continue taking tizanidine, nortriptyline, and CBD oil as needed. Plan to ta per off of zonisamide per patient request. She reports that she does not see any relief of her symptoms when she takes this medication. Plan for taper provided in her AVS. If she fi nds that her pain worsens with this taper, okay to resume previous dose. Follow-up with me in 4 months. SHONNA Guerrero Electronically signed This note was transcribed using voice recognition software. There may be speech recognitio n errors which escaped detection during review. in this encounter Plan of Treatment +--------+ [...] | | | | | | [place] [address] | | | | | | [phone] | | | | | | | | +--------+ + + + + | 09/22/ | Office | Neurology | Ronnie Schultz MD | | | 2018 | Visit | | [address] | | | | | | [place] | | | | | | [address] | | | | | | | | +--------+ + + + + as of this encounter Results EMG Study- Upper Extremity (04/05/2018 0900) + + + | Narrative | Performed At | + + + | Ronnie Schultz MD 04/05/2018 9:51 See scanned chart: | | | NCS/EMG of the upper extremities demonstrated mild bilateral median | | | nerve entrapment across tthe wrists | | + + + in this encounter Visit Diagnoses + + | Diagnosis | + + | Bilateral carpal tunnel syndrome - Primary | + + | Carpal tunnel syndrome | + + | Cervical radiculopathy | + + | Brachial neuritis or radiculitis nos | + + | Paresthesia and pain of both upper extremities | + + | Disturbance of skin sensation | + + | Degeneration of lumbar or lumbosacral intervertebral disc | + + | Lumbar spondylosis | + + | Lumbosacral spondylosis without myelopathy | + + | Thoracic spinal stenosis | + + | Spinal stenosis of thoracic region | + + | Chronic pain syndrome | + + | Chronic neck and back pain | + +
--- OUTSIDE RECORDS SUMMARY | ~2018-04-29 | XMS | Encounter Summary ---
Demographics + + + | Address | [address] | | | [place] [address] | + + + | Home Phone | | + + + | Preferred Language | Unknown | + + + | Marital Status | | + + + | Amish Affiliation | Unknown | + + + | Race | Unknown | + + + | Ethnic Group | Unknown | + + + Author + + + | Author | [facility] | | | and [place] | + + + | Organization | [facility] | | | and [...] [place], [place] | | | | | [address] | | + + + + + Care Team Providers + +------+ + | Care Clerk Analyst Name | Role | Phone | + +------+ + | Denis Starks DO | PCP | | + +------+ + Encounter Details +--------+ + + + + | Date | Type | Department | Care Team | Description | +--------+ + + + + | 01/27/ | Ancillary | [facility] | Provider, | | | 2018 | Orders | [facility] | [address] | | | | | IMAGING | [address] | | | | | [phone] | [place] [address] | | +--------+ + + + + [...] | | | | | | [place] [address] | | | | | | [phone] | | | | | | | | +--------+ + + + + | 09/22/ | Office | Neurology | Ronnie Schultz MD | | | 2018 | Visit | | [address] | | | | | | [place], [place] | | | | | | [address] | | | | | | | | +--------+ + + + + as of this encounter Results XR Thoracic Spine 2 Vw (01/22/2018 1530) + + + | Narrative | Performed [...]
--- OUTSIDE RECORDS SUMMARY | ~2018-04-29 | XMS | Encounter Summary ---
Demographics + + + | Address | [address] | | | [place] [address] | + + + | Home Phone | | + + + | Preferred Language | Unknown | + + + | Marital Status | | + + + | Baptist Affiliation | Unknown | + + + | Race | Unknown | + + + | Ethnic Group | Unknown | + + + Author + + + | Author | [facility] | | | and [place] | + + + | Organization | [facility] | | | and [...] [place] | | | | | [address] | | + + + + + Care Team Providers + +------+ + | Care Fabrication Lead Name | Role | Phone | + +------+ + | Denis Starks DO | PCP | | + +------+ + Reason for Visit + + + | Reason | Comments | + + + | Results, Imaging | | + + + Encounter Details +--------+ + + + + | Date | Type | Department | Care Team | Description | +--------+ + + + + | 04/23/ | Telephone | [facility] | Ronnie Schultz MD | Results, Imaging | | 2018 | | [facility]PITAL [facility] | [address] | | | | | CLINIC [address] | [place] | | | | | [address] [place], | [address] | | | | | [place] [address] | | | | | | [phone] | | | +--------+ + + + [...] | | | | | | [place] [address] | | | | | | [phone] | | | | | | | | +--------+ + + + + | 09/22/ | Office | Neurology | Ronnie Schultz MD | | | 2019 | Visit | | [address] | | | | | | [place] | | | | | | [id number] | | | | | | | | +--------+ + + + + + +--------+ + + | Name | Priori | Associated Diagnoses | Order Schedule | | | ty | | | + +--------+ + + | Lumbar Puncture | Routin | Demyelinating | 1 Occurrences | | | e | disease (HCC) | starting 04/23/2018 | | | | | until 04/23/2019 | + +--------+ + + as of this encounter Visit Diagnoses + + | Diagnosis | + + | Demyelinating disease (HCC) - Primary | + + | Demyelinating disease of central nervous system, unspecified | + +"
--- OUTSIDE RECORDS SUMMARY | ~2018-04-29 | XMS | Encounter Summary ---
Demographics + + + | Address | [address] | | | [place] [address] | + + + | Home Phone | | + + + | Preferred Language | Unknown | + + + | Marital Status | | + + + | Congregation Affiliation | Unknown | + + + | Race | Unknown | + + + | Ethnic Group | Unknown | + + + Author + + + | Author | [facility] | | | and [place] | + + + | Organization | [facility] | | | and [...] [place] | | | | | [address] | | + + + + + Care Team Providers + +------+ + | Care Employment Case Manager Name | Role | Phone | + +------+ + | Deins Starks DO | PCP | | + +------+ + Reason for Visit + + + | Reason | Comments | + + + | Follow-up | | + + + | Results | | + + + Follow Up (Routine) +--------+--------+ + + + + | Status | Reason | Specialty | Diagnoses / | Referred By | Referred To | | | | | Procedures | Contact | Contact | +--------+--------+ + + + + | Closed | | Neurosurgery | Diagnoses | Kassi, | Kassi, | | | | | Thoracic | Daljit A, DO | Daljit A, DO | | | | | neuritis | [address] | | | | | Thoracic | [address] | [address] | | | | | spinal | [address] | [place], | | | | | stenosis | [place], | [place] [address] | | | | | F/U Discuss | [place] [address] | Phone: | | | | | MRI [facility] | Phone: | [phone] | | | | | Procedures | [phone] | Fax: | | | | | OFFICE VISIT | Fax: | [phone] | | | | | EXTENDED | [phone] | | +--------+--------+ + + + + Encounter Details +--------+---------+ + + + | Date | Type | Department | Care Team | Description | +--------+---------+ + + + | 04/23/ | Office | [facility] | Aman Menezes, | S/P fusion of | | 2018 | Visit | NEUROSURGERY [address] | PA-C [address] | thoracic spine | | | | [address] | [address] [place] | (Primary Dx); | | | | [place], [place] | [place] [address] | Delayed wound | | | | [address] | [phone] | healing | | | | [phone] | | | +--------+---------+ + + + Social History [...] + + + | Blood Pressure | 113/65 | 04/23/20181006 PDT | + + + + | Pulse | 79 | 04/23/20181006 PDT | + + + + | Temperature | - | - | + + + + | Respiratory Rate | - | - | + + + + | Oxygen Saturation | - | - | + + + + | Inhaled Oxygen | - | - | | Concentration | | | + + + + | Weight | 63.6 kg (140 lb 3.4 | 04/23/2018 1007 PDT | | | oz) | | + + + + | Height | 170.2 cm (5' 7") | 04/23/2018 1007 PDT | + + + + | Body Mass Index | 21.96 | 04/23/2018 1007 PDT | + + + + in this [...] of this encounter Instructions Patient Instructions - Cass Griffin, Desk Maker - 04/23/2018 0945 PDTIt was a pleasure to see you today. Here is what we discussed. We will review your imaging with Dr. Brambila and let you know what we find out. If you have not heard from us by Saturday please call and check in with us. Only use a band-aid if the incision site opens back up other avila you can leave it open to air. in this encounter Progress Notes Aman Menezes PA-C - 04/23/2018 0945 PDTFormatting of this note may be different from the original. Aman Menezes PA-C [address] [facility], [address] [place] [address] PHONE: FAX: NEUROSURGERY FOLLOW-UP CHIEF COMPLAINT: Chief Complaint Patient presents with Follow-up Results HISTORY OF PRESENT ILLNESS: The patient is a 27 y.o. female that presents for follow up on her recent thoracic MRI. Patient has a history of 2 thoracic spine surgeries with her most recent being a thoracic fusion primarily for thoracic myelopathy on 07/26/2017. Patient re turns and overall is doing okay. She last saw Tian Bhandari about 2 weeks ago when she did a culture on it. She has now deve loped a second bump below the initial wound area. She describes a burning pain and sensation that is increasing in frequency and severity. T he burning is getting more intense. It gets so severe that it brings her to tears and keeps her awake at night. She notices that she will get a "green bump" that looks like something needs to be popped. CURRENT MEDICATIONS: Current Outpatient Prescriptions Medication Sig Dispense Refill acyclovir (ZOVIRAX) 5% ointment Apply topically as needed. buprenorphine (SUBUTEX) 8 mg SUBL take 1 tablet by mouth every 24 hours for pain 0 lactulose 10 g/15 mL solution Take 30 mLs by mouth 2 times daily. For constipation 240 mL 2 lidocaine-prilocaine (EMLA) cream polyethylene glycol (MIRALAX) powder Take 175 g by mouth 2 times daily. pregabalin (LYRICA) 75 mg capsule Take 1 capsule by mouth 2 times daily for 30 days. (P atient not taking: Reported on 04/23/2018) 60 capsule 2 promethazine (PHENERGAN) 25 mg tablet Take 25 mg by mouth every 6 hours as needed. SPRINTEC 28 0.25-35 MG-MCG per tablet Take 1 tablet by mouth Daily. SUMAtriptan (IMITREX) 100 mg tablet Take 100 mg by mouth as needed for Migraine. tiZANidine (ZANAFLEX) 4 mg tablet Take 1-2 tablets by mouth every 8 hours. 90 tablet 0 TRAZODONE HCL PO Take by mouth as needed. VENTOLIN HFA 108 (90 BASE) MCG/ACT inhaler Inhale into the lungs every 4 hours as need ed. No current facility-administered medications for this visit. ALLERGIES: Allergies Allergen Reactions Ciprofloxacin Anaphylaxis Penicillins Anaphylaxis [...] like head is on fire Erythromycin Rash SOCIAL HISTORY: The patient reports that she has never smoked. She has never used smokeless tobacco. She r eports that she does not drink alcohol or use drugs. INTERIM PHYSICAL EXAMINATION: Blood pressure 113/65, pulse 79, height 1.702 m (5' 7"), weight 63.6 kg (140 lb 3.4 oz), no t currently . Body mass index is 21.96 kg/m. REVIEW OF SYSTEMS GENERALLY: No fever, no night sweats, no anemia, + fatigue, no recent profound weight biju nges. EYES: No eye problems, no use of corrective lenses, no eye injury, no double vision, no bl indness. EARS, NOSE, AND THROAT: No changes in taste or smell, no hearing difficulty, no ringing in the ears, no ear drainage, no dizziness, no voice changes, no difficulty swallowing, no sig nificant snoring, no sleep apnea, no sinus problems, no major dental work. NEUROLOGICALLY: Please see the review of systems discussed above in the history of present illness. In addition, the patient has numbness/pain of arms, numbness/pain of legs, awake with numbness/pain, muscle aching, pain in neck, pain in back, headache. PSYCHIATRIC: No depression, no sleep disorders, no anxiety, no bipolar disorder, no psycho tic episodes. CARDIOVASCULAR: No heart attacks, no heart murmur, no heart fluttering, no chest pain, no ankle swelling. LUNG DISEASE: No shortness of breath, no cough, no tuberculosis, no bloody cough, no asth ma, no emphysema/COPD. GASTROINTESTINAL: No bowel disease, + nausea or vomiting, no rectal bleeding, no constipat ion, no stool incontinence, no liver disease, no gallbladder disease, no abdominal pain, no ulcers. KIDNEY DISEASE: No urinary frequency, no painful or difficult urination, no incontinence, + irregular periods ENDOCRINE: No diabetes, no thyroid disease, no osteopenia or osteoporosis, no breast drain age. SKIN: No breast lumps, no skin changes, no rashes, no itches. HEMATOLOGIC/LYMPHATIC: No enlarged lymph nodes, no easy or unusual bleeding, no personal h istory of cancer. RHEUMATOLOGIC: + joint arthritis, no rheumatoid arthritis. GENERAL: Ying Saunders is in no acute distress with unlabored respirations. The p atient does appear uncomfortable throughout the exam today. HEENT: Head: Normocephalic/atraumatic with no areas of recent trauma. Eyes: Normal sclerae without icterus. Ears: No drainage or tenderness. Nasopharnyx: Clear without drainage. Oropharnyx: Clear without erythema. NECK (ANTERIOR): Supple and without palpable masses. CHEST: Clear to ausculation without crackles or wheeze. HEART: Regular rate and rhythm without murmurs. ABDOMEN: Soft, non-tender, non-distended, and without palpable masses. The patient is not o bese. SPINE: There is tenderness in the midline of the thoracic spine on the left incision. There are 2 prominent areas of erythema but they are only approximately 3 mm in diameter and did not have an infectious appearance to them. Instead, they look like fresh scar tissue with a thin dermis and irritated skin. Neither of these are actively draining. However, patient is significantly tender to even mild palpation around these areas. There is no fluctuance. EXTREMITIES: No cyanosis, clubbing, or edema. Distal pulses are palpable. RADIOGRAPHIC REVIEW: The patient's imaging was reviewed in detail with the patient today during the visit. The Thoracic MRI from 04/10/2018 shows a small collection of fluid just under the skin on the lef t side. Following this, is traverses medially towards and center and then goes deep leading to the dura. No other significant findings appreciated. Thoracic x-rays from 01/22/2018 show stable instrumentation without any evidence of hardware failure. ASSESSMENT: Encounter Diagnoses Name Primary? S/P fusion of thoracic spine Yes Delayed wound healing Past Medical History: Diagnosis Date Complication of anesthesia 2010 allergy to propfol had a seizure during surgery - used it since then without problems Fibromyalgia H/O cold sores Lumbar stenosis Migraine Pneumonia PLAN: Overall, the patient is doing okay. The patient has had prolonged wound healing problem with a small area in the upper aspect o f her incision and now there is a newer lesion about 2" below the old one we have been focus ed on over the last few months. Patient has had several cultures none of which have produce d any evidence of bacterial infection. Currently, it does not appear to be infected. In vi mckenzie the MRI today, I'm not certain that this collection of fluid communicates with the int radural space. At this point, I'm not certain how to proceed and have shared her case with Dr. brambila. Patient is aware that once Dr. brambila has reviewed her notes and MRI he will inform u s of his planned and how he would like to proceed. In the meantime, as long as the wound is not actively draining, patient does not need Band-Aids over the area. Should it begin to d rain again I would like her to put Band-Aids on it and call our office. We had a lengthy discussion with the patient about his options for care including surgical and non-surgical options. I, Aman Menezes PA-C, personally performed the services described in this documentati on, as scribed by RIA Michaud, in my presence, and it is both accurate and comple te. Aman Menezes PA-C 04/24/18 ELECTRONICALLY SIGNED BY: Aman Menezes PA-C, 04/24/2018 7:25 in this encounter Plan of Treatment +--------+ + + + + | Date | Type | Specialty | Care Team | Description | +--------+ + + + + | 05/23/ | Appointment | Infusion Therapy | | | | 2018 | | | | | +--------+ + + + + | 06/09/ | Office | Neurology | Derrick, | | | 2017 | Visit | | [address] | | | | [address] [place], | | | | | | [place] [address] | | | | | | [phone] | | | | | | | | +--------+ + + + + | 09/22/ | Office | Neurology | Ronnie Schultz MD | | | 2018 | Visit | | [address] | | | | | | [place], [place] | | | | | | [address] | | | | | | | | +--------+ + + + + as of this encounter Visit Diagnoses + + | Diagnosis | + + | S/P fusion of thoracic spine - Primary | + + | Delayed wound healing | + + | Open wound(s) (multiple) of unspecified site(s), complicated | + +
--- OUTSIDE RECORDS SUMMARY | ~2018-04-29 | XMS | Clinical Summary ---
Demographics + + + | Address | [address] | | | [place] [address] | + + + | Home Phone | | + + + | Preferred Language | Unknown | + + + | Marital Status | | + + + | Druze Affiliation | Unknown | + + + | Race | Unknown | + + + | Ethnic Group | Unknown | + + + Author + + + | Author | [facility] | | | and [place] | + + + | Organization | [facility] | | | and [place] | + + + | Address | Unknown | + + + | Phone | Unavailable | + + + Support + + + + + | Name | Relationship | Address | Phone | + + + + + | Mg Rodriguez | ECON | [address] | | | | | [place] | | | | | [address] | | + + + + + Care Team Providers + +------+ + | Care Medical Claims Specialist Name | Role | Phone | [...] | Inhale into the | | | 11/2 | | Activ | | (90 BASE) MCG/ACT | lungs every 4 hours | | | 1/20 | | e | | inhaler | as needed. | | | 16 | | | + + + +---------+------+------+-------+ | acyclovir | Apply topically as | | | 02/0 | | Activ | | (ZOVIRAX) 5% | needed. | | | 9/20 | | e | | ointment | [...] | 2 times daily. | | | /20 | | e | | powder | [...] | | + + + +---------+------+------+-------+ | SPRINTEC 28 | Take 1 tablet by | | | 04/1 | | Activ | | 0.25-35 MG-MCG per | mouth Daily. | | | 9/20 | | e | | tablet | | | | 18 | | | + + + +---------+------+------+-------+ | buprenorphine | take 1 tablet by | | 0 | 08/1 | | Activ | | (SUBUTEX) 8 mg SUBL | mouth every 24 hours | | | 0/20 | | e | | | for pain | | | 18 | | | + + + +---------+------+------+-------+ | pregabalin | Take 1 capsule by | 60 | 2 | 08/2 | 09/2 | Activ | | (LYRICA) 75 mg | mouth 2 times daily | capsule | | 12/29 | 11/29 | e | | capsule | for 30 days. | | | 18 | 18 | | + + + +---------+------+------+-------+ | promethazine | Take 25 mg by mouth | | | | | Activ | | (PHENERGAN) 25 mg | every 6 hours as | | | | | e | | tablet | needed. | | | | | | + + + +---------+------+------+-------+ | | | | | 03/13 | | Activ | | lidocaine-prilocaine | | | | 11/29 | | e | | (EMLA) cream | | | | 18 | | | + + + +---------+------+------+-------+ | zonisamide | Take 100 mg by mouth | | | 08/13 | 03/13 | Disco | | (ZONEGRAN) 100 mg | 4 times daily. | | | 11/29 | 12/29 | ntinu | | capsule | | | | 17 | 18 | ed | + + + +---------+------+------+-------+ | ondansetron | Take 4 mg by mouth 3 | | | 08/13 | 04/12 | Disco | | (ZOFRAN) 8 MG tablet | times daily. | | | 12/29 | 10/01 | ntinu | | | | | | | 18 | ed | + + + +---------+------+------+-------+ Active Problems + + + | Problem | Noted Date | + + + | Demyelinating disease (HCC) | 04/08/2018 | + + + | Chronic neck and back pain | 02/05/2018 | + + + + + | Overview: Patient had surgery on her lumbar spine in February | 2013, a lumbar laminectomy in December 2014, lumbar laminectomy in | | May 2015, a thoracic spinal fusion in May 2016, fusion of | | her cervical spine in December 2016 and a thoracic spine surgery in | | July 2017. Patient is currently being managed by a pain | | clinic. Plan to transition from [place] to buprenorphine. | + + + + + | Chronic pain syndrome [...] | Overview: Overview: | | per Ortho (Dr. Rivers) | + + + + + | Thoracic neuritis | 02/23/2013 | + + + + + | Overview: Overview: | | per Ortho (Dr. Rivers) | + + + + + [...] | +--------+ + + + + | 04/25/ | Telephone | | Aman Menezes, | Other | | 2017 | | | PA-C | | +--------+ + + + + | 04/25/ | Orders Only | | Aman Menezes, | Delayed wound | | 2017 | | | PA-C | healing (Primary | | | | | | Dx); Status post | | | | | | thoracic spinal | | | | | | fusion | +--------+ + + + + | 04/24/ | Documentati | | Earnestine Anand RN | | | 2017 | on | | | | +--------+ + + + + | 04/23/ | Office | | Aman Menezes, | S/P fusion of | | 2017 | Visit | | PA-C | thoracic spine | | | | | | (Primary Dx); | | | | | | Delayed wound | | | | | | healing | +--------+ + + + + | 04/23/ | Telephone | | Ronnie Schultz MD | Results, Imaging | | 2017 | | | | | +--------+ + + + + | 04/18/ | Ancillary | | Provider, | | | 2018 | Orders | | MD Kendall | | +--------+ + + + + | 04/18/ | Procedure | | | | | 2018 | Pass | | | | +--------+ + + + + | 04/15/ | Office | | Tian Bhandari, | Delayed surgical | | 2018 | Visit | | [employer]ER | wound healing, | | | | | | subsequent encounter | | | | | | (Primary Dx); | | | | | | History of wound | | | | | | infection; Wound | | | | | | dehiscence; Thoracic | | | | | | spinal stenosis | +--------+ + + + + | 04/10/ | Imaging | | Provider, | | | 2017 | Exam | | MD Kendall | | +--------+ + + + + | 04/10/ | Telephone | | Ronnie Schultz MD | Paperwork | | 2017 | | | | | +--------+ + + + + | 04/08/ | Office | | Ronnie Schultz MD | Demyelinating | | 2017 | Visit | | | disease (HCC) | | | | | | (Primary Dx); | | | | | | Chronic neck and | | | | | | back pain; Lumbar | | | | | | spondylosis | +--------+ + + + + | 04/07/ | Telephone | | Ronnie Schultz MD | Neurology | | 2017 | | | | Appointment | +--------+ + + + + | 04/05/ | Procedure | | Ronnie Schultz MD | Bilateral carpal | | 2018 | visit | | | tunnel syndrome; | | | | | | Cervical | | | | | | radiculopathy; | | | | | | Paresthesia and pain | | | | | | of both upper | | | | | | extremities | +--------+ + + + + | 03/31/ | Office | | Zhane [place] | Staph skin infection | | 2017 | Visit | | [address] | (Primary Dx); | | | | | | Thoracic neuritis; | | | | | | Thoracic spinal | | | | | | stenosis; Chronic | | | | | | pain syndrome | +--------+ + + + + | 03/20/ | Office | | Tian Bhandari, | History of wound | | 2018 | Visit | | [employer]ER | infection (Primary | | | | | | Dx); Delayed | | | | | | surgical wound | | | | | | healing, subsequent | | | | | | encounter; Thoracic | | | | | | spinal stenosis | +--------+ + + + + | 03/19/ | Telephone | | Daljit Roman, | Pain | | 2017 | | | DO | | +--------+ + + + + | 03/04/ | Telephone | | Tian Bhandari, | Wound Infection | | 2017 | | | [employer]ER | | +--------+ + + + + | 03/03/ | Office | | Tian Bhandari, | Non-healing surgical | | 2017 | Visit | | [employer]ER | wound, subsequent | | | | | | encounter (Primary | | | | | | Dx); History of | | | | | | | | | | | | dehiscence of wound; | | | | | | History of wound | | | | | | infection | +--------+ + + + + | 02/13/ | Office | | Aman Menezes, | Delayed surgical | | 2018 | Visit | | Tian Lara | wound healing, | | | | | L, H[employer]KER | initial encounter | | | | | | (Primary Dx); Wound | | | | | | dehiscence; History | | | | | | of wound infection | +--------+ + + + + | 02/05/ | Office | | Derrick, | Bilateral carpal | | 2017 | Visit | | HANH HuertaP | tunnel syndrome | | | | | | (Primary Dx); | | | | | | Cervical | | | | | | radiculopathy; | | | | | | Paresthesia and pain | | [...] | | | | back pain | +--------+ + + + + | 01/27/ | Ancillary | | Provider, | | | 2017 | Orders | | HistoricalMD | | +--------+ + + + + from Last 3 Months Immunizations + + + + | Name | Dates Previously Given | Next Due | + + + + | HEP A, 2 DOSE | 03/19/2014 | | | (ADULT) | | | + + + + | HPV, QUADRIVALENT, 3 | 01/12/2013, 10/29/2012 | | | DOSE (ADOL/ADULT) | | | + + + + | Hep B (adolescent or | 03/19/2014 | | | ped) 3 dose | | | + + + + | INFLUENZA PF | 06/08/2015, 05/22/2012 | | | QUAD(PED/ADOL/ADULT) | | | | ,PSKT or VIAL | | | + + + + | INFLUENZA, | 12/26/2016 | | | UNSPECIFIED | | | | FORMULATION | | | + + + + | PPD Test | 01/29/2012 | | + + + + | TDAP, (ADOL/ADULT) | 07/27/2013 | | + + + + Family [...] + | Blood Pressure | 113/65 | 04/23/2018 1007 PDT | + + + + | Pulse | 79 | 04/23/20181006 PDT | + + + + | Temperature | 36.8 C (98.2 F) | 04/15/201831 PDT | + + + + | Respiratory Rate | 20 | 04/08/20181554 PDT | + + + + | Oxygen Saturation | 100% | 04/08/20181554 PDT | + + + + | Inhaled Oxygen | - | - | | Concentration | | | + + + + | Weight | 63.6 kg (140 lb 3.4 | 04/23/20181006 PDT | | | oz) | | + + + + | Height | 170.2 cm (5' 7") | 04/23/20181006 PDT | + + + + | Body Mass Index | 21.96 | 04/23/20181006 PDT | + + + + Plan of Treatment +--------+ + + + + | Date | Type | Specialty | Care Team | Description | +--------+ + + + + | 05/23/ | Appointment | | | | | 2017 | | | | | +--------+ + + + + | 06/09/ | Office | | Derrick, | | | 2017 | Visit | | [address]NA [address] [place], | | | | | | [place] [address] | | | | | | [phone] | | | | | | | | +--------+ + + + + | 09/22/ | Office | | Ronnie Schultz MD | | | 2018 | Visit | | [address] | | | | | | [place] | | | | | | [address] | | | | | | | | +--------+ + + + + + + + + + | Health Maintenance | Due Date | Last Done | Comments | + + + + + | Vaccine: HPV (3 of 3 | | 01/12/2013, 10/29/2012 | | | - Female 3-dose | 3 | | | | series) | | | | + + + + + | Cervical Cancer | | | | | Screening (Pap) | 4 | | | + + + + + | Vaccine: Influenza | | 12/26/2016, 06/08/2015, | | | (#1) | 8 | 05/22/2012 | | + [...] | [facility] - | | 08/29/ | [id number] | | [id number]: Qty: 1 on | | Spine | MEDT | | 2019 | | | 12/14/2016 by Daljit Roman | | Cervic | | | | /[id number] | | A, DO | | al | | | | 7-162 | | | | | | | | / | + +--------+--------+ +--------+--------+--------+ | Putty Bone Dbm Grftn 0.5cc - | Bone | N/A: | [facility] - | | 08/29/ | [id number] | | [id number]: Qty: 1 on | | Spine | [...] | [facility] - | | 11/30/ | [id number] | | [id number]: Qty: 1 | | Thorac | MEDT | | 2021 | | | on 07/26/2017 by Abel, | | ic | | | | /[id number] | | Daljit Cool DO | | | | | | 4-022 | | | | | | | | / | + +--------+--------+ +--------+--------+--------+ | Imp Dontaen Elizabeth Mane [id number] - | Generi | N/A: | [facility] - | | 03/23/ | 745234 | | [id number]: Qty: 1 | c | Spine | MEDT | | 2023 | 1 / | | on 12/14/2016 by Abel, | | Mas[place] | | | | /12CG | | aDljit Cool DO | | al | | | | | + +--------+--------+ +--------+--------+--------+ | Imp Spn Elizabeth Mane [id number] - | Generi | N/A: | [facility] - | | 04/27/ | 407626 | | [id number]: Qty: 1 | c | Spine | MEDT | | 2023 | 1 / | | on 12/14/2016 by Abel, | | Cervic | | | | /67CM | | Daljit Cool DO | | al | | | | | + +--------+--------+ +--------+--------+--------+ | Imp Spn Spcr Cpstn 7x22mm - | Generi | N/A: | [facility] - | | 10/02/ | 636125 | | [id number]: Qty: 1 on | c | Thorac | MEDT | | 2024 | 2 / | | 07/26/2017 by Daljit Roman | | ic | | | | /[id number] | | DO [place] | | | | | | 432 | + +--------+--------+ +--------+--------+--------+ | Imp Spn Spcr Cpstn 7x22mm - | Generi | N/A: | [facility] - | | 12/13/ | 057667 | | [id number]: Qty: 1 on | c | Thorac | MEDT | | 2023 | 2 / | | 07/26/2017 by Daljit Roman | | ic | | | | /[id number] | | A, DO | | | | | | 374 | + +--------+--------+ +--------+--------+--------+ | Imp Spn [address] 4.51r849jw - | Generi | N/A: | [facility] - | | | 409691 | | [id number]: Qty: 2 on | c | Thorac | MEDT | | | 6130 / | | 07/26/2017 by Daljit Roman | | ic | | | | / | | A DO | | | | | | | + +--------+--------+ +--------+--------+--------+ | Putty [place] 10cc Dbm - | Graft | N/A: | [facility] - | | 05/15/ | [id number] | | [id number]: Qty: 1 | | Thorac | MEDT [...] | [facility] - | | 08/11/ | 694464 | | [id number]: Qty: 1 on | | Thorac | MEDT | | 2018 | 0 / | | 07/26/2017 by Daljit Roman | | ic | | | | /[id number] | | A, DO | | | | | | 29AAM | + +--------+--------+ +--------+--------+--------+ | Plate Ant [place] Cerv | Plate | N/A: | [facility] - | | | 213426 | | 42.5mm - [id number]: | | Spine | MEDT | | | 2 / / | | Qty: 1 on 12/14/2016 by | | Max | | | | | | Daljit Roman DO | | al | | | | | + +--------+--------+ +--------+--------+--------+ | Screw Slf-Drl V/A 4.0x14mm - | Screw | N/A: | [facility] | | | 077675 | | [id number]: Qty: 6 on | | Spine | DANEK - DIV | | | 4 / / | | 12/14/2016 by Daljit Roman | | Cervic | [facility] | | | | | [place] DO | | al | - SFDK | | | | + +--------+--------+ +--------+--------+--------+ | Screw Eder Solera 5.5x40mm - | Screw | N/A: | [facility] - | | | 650697 | | [id number]: Qty: 1 on | | Thorac | MEDT | | | 87539 | | 07/26/2017 by Daljit Roman | | ic | | | | / / | | A, DO | | | | | | | + +--------+--------+ +--------+--------+--------+ | Screw Eder Solera 5.5x45mm - | Screw | N/A: | [facility] - | | | 263273 | | [id number]: Qty: 3 on | | Thorac | MEDT | | | 36007 | | 07/26/2017 by Daljit Roman | | ic | | | | / / | | A, DO | | | | | | | + +--------+--------+ +--------+--------+--------+ | Screw Mas G5 Slra 7.5x40 Cn - | Screw | N/A: | [facility] - | | | 619223 | | [id number]: Qty: 1 | | Thorac | MEDT | | | 37055 | | on 07/26/2017 by Abel, | | ic | | | | / / | Daniela Cool DO | | | | | | | + +--------+--------+ +--------+--------+--------+ | Screw Eder Solera 6.5x40mm - | Screw | N/A: | [facility] - | | | 005279 | | [id number]: Qty: 1 on | | Thorac | MEDT | | | 03664 | | 07/26/2017 by Daljit Roman | | ic | | | | / / | | A, DO | | | | | | | + +--------+--------+ +--------+--------+--------+ | Screw Eder Solera 6.5x45mm - | Screw | N/A: | [facility] - | | | 558540 | | [id number]: Qty: 1 on | | Thorac | MEDT | | | 70308 | | 07/26/2017 by Daljit Roman | | ic | | | | / / | | A, DO | | | | | | | + +--------+--------+ +--------+--------+--------+ | Set Scrw Ns G5 Brk Off Ti | Screw | N/A: | [facility] - | | | 611206 | | 4.75 - [id number]: | | Thorac | MEDT | | | 0 / / | | Qty: 10 on 07/26/2017 by | | ic | | | | | | Daljit Roman DO | | | | | | | + +--------+--------+ +--------+--------+--------+ | Chips Cancellous 15cc - | | N/A: | [facility] - | | 09/08/ | 223333 | | [id number]: Qty: 1 | | Back | OSTT | | 2020 | | | on 12/16/2014 by Abel, | | | | | | /92855 | | Daljit Cool DO | | | | | | 0-036 | | | | | | | | / | + +--------+--------+ +--------+--------+--------+ | Screw Slra Sextant 7.5.55 - | | N/A: | [facility] - | | | 951328 | | [id number]: Qty: 1 on | | Back | MEDT | | | 07418 | | 12/16/2014 by Daljit Roman | | | | | | / / | | DO [place] | | | | | | | + +--------+--------+ +--------+--------+--------+ | Imp Spn Nicholas Sext Ti | | N/A: | [facility] | | | 332728 | | 4.97lveh22 - | | Back | DANEK - DIV | | | 5070 / | | [id number]: Qty: 1 on | | | [facility] | | | / | | 12/16/2014 by Daljit Roman | | | - SFDK | | | | | A DO | | | | | | | + +--------+--------+ +--------+--------+--------+ | Imp Spn Nicholas Sext Ti 4.69z76az | | N/A: | [facility] | | | 681347 | | - [id number]: Qty: 1 | | Back | DANEK - DIV | | | 5075 / | | on 12/16/2014 by Abel, | | | [facility] | | | / | | Daljit Cool DO | | | - SFDK | | | | + +--------+--------+ +--------+--------+--------+ | Set Scrw Ns G5 Brk Off Ti | | N/A: | [facility] | | | 799528 | | 4.75 - [id number]: | | Back | DANEK - DIV | | | 0 / / | | Qty: 5 on 12/16/2014 by | | | [facility] | | | | | Daljit Roman DO | | | - SFDK | | | | + +--------+--------+ +--------+--------+--------+ | Chips Cancellous 15cc - | | N/A: | [facility] - | | 10/07/ | 291417 | | [id number]: Qty: 1 | | Back | OSTT | | 2020 | | | on 12/16/2014 by Abel, | | | | | | /34893 | | Daljit Cool DO | | | | | | 8-032 | | | | | | | | / | + +--------+--------+ +--------+--------+--------+ | Graft Infuse Bone Kit Xs - | | N/A: | [facility] | | 01/09/ | 774486 | | [id number]: Qty: 1 on | | Back | DANEK - DIV | | 2015 | 0 / | | 12/16/2014 by Daljit Roman | | | [facility] | | | /[id number] | | DO [place] | | | - SFDK | | | 47AAD | + +--------+--------+ +--------+--------+--------+ | Imp Spn Spcr [place] 19o23nm | | N/A: | [facility] - | | 10/14/ | 068947 | | - [id number]: Qty: 1 | | Back | MEDT | | 3 | 1 / | | on 12/16/2014 by Abel, | | | | | | /[id number] | | Daljit Cool DO | | | | | | 018 | + +--------+--------+ +--------+--------+--------+ | Algrft Putty [place] 5c Dbm | | N/A: | [facility] - | | 06/07/ | 82856 | | - [id number]: Qty: 1 | | Back | OSTT | | 2016 | /[id number] | | on 12/16/2014 by Abel, | | | | | | 4034 / | | Daljit Cool DO | | | | | | | + +--------+--------+ +--------+--------+--------+ | Chips Cancellous 15cc - | | N/A: | [facility] - | | 10/11/ | 356016 | | [id number]: Qty: 1 | | Back | OSTT | | 2020 | | | on 12/16/2014 by Abel, | | | | | | /98309 | | Daljit Cool DO | | | | | | 0-010 | | | | | | | | / | + +--------+--------+ +--------+--------+--------+ | Imp Spn Spcr [place] 85u40pv | | N/A: | [facility] - | | 07/23/ | 069972 | | - [id number]: Qty: 1 | | Back | MEDT | | 2 | 2 / | | on 12/16/2014 by Abel, | | | | | | /[id number] | | Daljit Cool DO | | | | | | 516 | + +--------+--------+ +--------+--------+--------+ | Screw Eder Solera 6.5x55mm - | | N/A: | [facility] | | | 199994 | | [id number]: Qty: 2 on | | Back | DANEK - DIV | | | 05175 | | 12/16/2014 by Daljit Roman | | | [facility] | | | / / | | DO [place] | | | - SFDK | | | | + +--------+--------+ +--------+--------+--------+ | Screw Mas G5 Slra 7.5x45 Cn - | | N/A: | [facility] | | | 944165 | | [id number]: Qty: 2 | | Back | DANEK - DIV | | | 36763 | | on 12/16/2014 by Abel, | | | [facility] | | | / / | | Daljit Cool DO | | | - SFDK | | | | + +--------+--------+ +--------+--------+--------+ | Bone Chips 15cc - | | N/A: | [facility] | | 12/02/ | 294745 | | [id number]: Qty: 1 | | Spine | RED CROSS - | | 2019 | | | on 06/03/2015 by Abel, | | Thorac | AMRR | | | /38855 | | Daljit Cool DO | | ic | | | | 7017 | | | | | | | | / | + +--------+--------+ +--------+--------+--------+ | Putty [place] 10cc Dbm - | | N/A: | [facility] - | | 03/03/ | 49306 | | [id number]: Qty: 1 | | Spine | OSTT | | 2017 | /[id number] | | on 06/03/2015 by Abel, | | Thorac | | | | 4-013 | | Daljit Cool DO | | ic | | | | / | + +--------+--------+ +--------+--------+--------+ | Graft Infuse Bone Kit Xs - | | N/A: | [facility] | | 05/04/ | 197588 | | [id number]: Qty: 1 on | | Spine | DANEK - DIV | | 2016 | 0 / | | 06/03/2015 by Daljit Roman | | Thorac | [facility] | | | /[id number] | | A, DO | | ic | - SFDK | | | 84AAD | + +--------+--------+ +--------+--------+--------+ | Imp Spn Spcr Cpstn 7x22mm - | | N/A: | [facility] | | 12/02/ | 245274 | | [id number]: Qty: 1 on | | Spine | DANEK - DIV | | 3 | 2 / | | 06/03/2015 by Daljit Roman | | Thorac | [facility] | | | /[id number] | | [place], DO | | ic | - SFDK | | | 208 | + +--------+--------+ +--------+--------+--------+ | Nicholas Perc Str Ccm-Pls 4.12u145 | | N/A: | [facility] - | | | 535498 | | - [id number]: Qty: 1 | | Spine | MEDT | | | 6120 / | | on 06/03/2015 by Abel, | | Thorac | | | | / | | Daljit Cool DO | | ic | | | | | + +--------+--------+ +--------+--------+--------+ | Imp Spn Nicholas Ti Sext Ti 5.5x45 | | N/A: | [facility] | | | 370259 | | - [id number]: Qty: 1 | | Spine | DANEK - DIV | | | 5045 / | | on 06/03/2015 by Abel, | | Thorac | [facility] | | | / | | Daljit Cool DO | | ic | - SFDK | | | | + +--------+--------+ +--------+--------+--------+ | Screw Eder Solera 5.5x35mm - | | N/A: | [facility] - | | | 721356 | | [id number]: Qty: 1 on | | Spine | MEDT | | | 39499 | | 06/03/2015 by Daljit Roman | | Thorac | | | | / / | | A, DO | | ic | | | | | + +--------+--------+ +--------+--------+--------+ | Screw Eder Solera 5.5x40mm - | | N/A: | [facility] | | | 321851 | | [id number]: Qty: 1 on | | Spine | DANEK - DIV | | | 10588 | | 06/03/2015 by Daljit Roman | | Thorac | [facility] | | | / / | | A, DO | | ic | - SFDK | | | | + +--------+--------+ +--------+--------+--------+ | Screw Eder Solera 5.5x45mm - | | N/A: | [facility] | | | [id number] | | [id number]: Qty: 3 on | | Spine | DANEK - DIV | | | 53988 | | 06/03/2015 by Daljit Roman | | Thorac | [facility] | | | / / | | DO [place] | | radha | - SFDK | | | | + +--------+--------+ +--------+--------+--------+ | Set Scrw Ns G5 Brk Off Ti | | N/A: | [facility] | | | 852970 | | 4.75 - [id number]: | | Spine | DANEK - DIV | | | 0 / / | | Qty: 5 on 06/03/2015 by | | Thorac | [facility] | | | | | Daljit Roman DO | | ic | - SFDK [...] N/A: | [facility] - | | | 555500 | | [id number]: Qty: 1 on | | Thorac | MEDT | | | 82468 | | 07/26/2017 | | ic | | | | / / | + +-------+--------+ +--------+--------+--------+ Procedures + +--------+ + + + | [...] section. | + +--------+ + + + | MRI THORACIC SPINE | Routin | 04/10/2018 | | Results for this | | WO CONTRAST | e | 1710 PDT | | procedure are in the | | | | | | results section. | + +--------+ + + + | EMG STUDY | Routin | 04/05/2018 | Bilateral carpal | Results for this | | | e | 0900 PDT | tunnel syndrome | procedure are in the | | | | | Cervical | results section. | | | | | radiculopathy | | | | | | Paresthesia and pain | | | | | | of both upper | | | | | | extremities | | + +--------+ + + + | CULTURE, WOUND, | Routin | 03/03/2018 | Non-healing | Results for this | | SMEAR | e | 1106 PDT | surgical wound, | procedure are in the | | | | | subsequent encounter | results section. | + +--------+ + + + from Last 3 Months Results Culture, Wound, Smear (04/15/2018 0956)Only the most recent of 2 results within the time hakan kenny is included. + + + + + | Component | Value | Ref Range | Performed At | + + + + + | Culture | No Growth | | [facility] | | | [facility] | | | | | [facility] - | | | | | LABORATORY | + + + + + | Gram Stain Result | 2+ White Blood Cells | | [facility] | | | | | [facility] | | | | | [facility] [...] | + + + + + | [facility] | [address] | [place] | [phone] | | [facility] | | [address] | | | - LABORATORY | | | | + + + + + | [facility] | [address] | [place] | | | [facility] | | [address] | | | - LABORATORY | | | | + + + + + MRI Thoracic Spine wo Contrast (04/10/2018 9220) + + + | Narrative | Performed [...] | | | + +---------+ + + EMG Study- Upper Extremity (04/05/2018 0900) + + + | Narrative | Performed At | + + + | Ronnie Schultz MD 04/05/2018 9:51 See scanned chart: | | | NCS/EMG of the upper extremities demonstrated mild bilateral median | | | nerve entrapment across tthe wrists | | + + + from Last 3 Months Insurance + +--------+ +--------+ +---------+ | Payer | Benefi | Subscriber | Type | Phone | Address | | | t Plan | ID | | | | | | / | | | | | | | Group | | | | | + +--------+ +--------+ +---------+ | [employer] | [employer] | [id number] | Medica | +- | | | MEDICAID HMO | HEALTH | | id | [id number] | | | | [place] | | | | | | | [place] | | | | | + +--------+ +--------+ +---------+ | [employer] | [employer] | [id number] | Medica | +- | | | [...] | Self [birth year] | Home: | [address] | | [place] | al/Fam | | 1990 | +- | [place] | | | [place] | | | [phone] | [phone] | + +--------+ +--------+ + + | YING RODRIGUEZ | Person | Self [birth year] | Home: | [address] | | [place] | al/Fam | | 1990 | +- | [place], [place] | | | [place] | | | [phone] | [phone] | + +--------+ +--------+ + +
--- OUTSIDE RECORDS SUMMARY | ~2018-04-29 | XMS | Encounter Summary ---
Demographics + + + | Address | [address] | | | [place] [address] | + + + | Home Phone | | + + + | Preferred Language | Unknown | + + + | Marital Status | | + + + | Religion Affiliation | Unknown | + + + | Race | Unknown | + + + | Ethnic Group | Unknown | + + + Author + + + | Author | [facility] | | | and [place] | + + + | Organization | [facility] | | | and [place] [...] [place], [place] | | | | | [address] | | + + + + + Care Team Providers + +------+ + | Care Sludge Filtration Attendant Name | Role | Phone | + +------+ + | Denis Starks DO | PCP | | + +------+ + Reason for Referral Diagnostic/Screening (Routine) +--------+--------+ + + + + | Status | Reason | Specialty | Diagnoses / | Referred By | Referred To | | | | | Procedures | Contact | Contact | +--------+--------+ + + + + | Closed | | MRI | Diagnoses | [place] | [address] | | | | | Thoracic | Zhane | [facility] | | | | | neuritis | [address] | [address] | | | | | Thoracic | [address] | | | | | spinal | [address] | [place], [place] | | | | | stenosis | [place], | [address] | | | | | Staph skin | [place] [address] | Phone: | | | | | infection | Phone: | [phone] | | | | | Procedures | [phone] | Fax: | | | | | MRI Thoracic | Fax: | [phone] | | | | | Spine w wo | [phone] | | | | | | Contrast | | | | | | | 04/03 Pt | | | | | | | confirmed | | | +--------+--------+ + + + + Reason for Visit + + + | Reason | Comments | + + + | Back Pain | upper back/thoracic pain | + + + Follow Up (Routine) +--------+--------+ + + + + | Status | Reason | Specialty | Diagnoses / | Referred By | Referred To | | | | | Procedures | Contact | Contact | +--------+--------+ + + + + | Closed | | Neurosurgery | Diagnoses | [place], | [facility] | | | | | Disruption | Daljit Cool DO | Neurosurgery | | | | | of external | [address] | | | | | operation | [address] | [address] | | | | | (surgical) | [address] | [place], | | | | | wound, not | [place], | [place] [address] | | | | | elsewhere | [place] [address] | Phone: | | | | | classified, | Phone: | [phone] | | | | | subsequent | [phone] | Fax: | | | | | encounter | Fax: | [phone] | | | | | KASSI: | [phone] | | | | | | Review of | | | | | | | Symptoms | | | | | | | Procedures | | | | | | | OFFICE VISIT | | | | | | | EXTENDED | | | +--------+--------+ + + + + Encounter Details +--------+---------+ + + + | Date | Type | Department | Care Team | Description | +--------+---------+ + + + | 03/31/ | Office | [facility] | Zhane Birmingham | Staph skin infection | | 2018 | Visit | NEUROSURGERY [address] | [address] | (Primary Dx); | | | | [address] | [place], | Thoracic neuritis; | | | | [place], [place] | [place] [address] | Thoracic spinal | | | | [address] | [phone] | stenosis; Chronic | | | | [phone] | | pain syndrome | +--------+---------+ + + + Social History [...] + + + | Blood Pressure | 124/69 | 03/31/20181616 PDT | + + + + | Pulse | 75 | 03/31/20181616 PDT | + + + + | Temperature | - | - | + + + + | Respiratory Rate | - | - | + + + + | Oxygen Saturation | - | - | + + + + | Inhaled Oxygen | - | - | | Concentration | | | + + + + | Weight | 63.3 kg (139 lb 8.8 | 03/31/20181616 PDT | | | oz) | | + + + + | Height | 170.2 cm (5' 7") | 03/31/20181616 PDT | + + + + | Body Mass Index | 21.86 | 03/31/20181616 PDT | + + + + in [...] of this encounter Instructions Patient Instructions - Solange Montanez, Electric Freight Car Operator - 03/31/2018 1545 PDTIt was leonardo morillo to see you today, we discussed the following in your appointment: 1. We will get a new MRI ordered. Once it is approved we will send the order to [facility] [place]. We will call you to let you know when it is approved. We will review the MR I and bring you in to discuss the results or we can try to get you over the phone and possib ly discuss the results. 2. Continue to see Tian for wound care and treatment of the infection.in this encounter Progress Notes Zhane Birmingham PA-C - 03/31/2018 1545 PDTFormatting of this note may be different f rom the original. J. Rayna Seam Sewer, PA-C [address] [place] [address] PHONE: FAX: NEUROSURGERY FOLLOW-UP CHIEF COMPLAINT: Chief Complaint Patient presents with Back Pain upper back/thoracic pain HISTORY OF PRESENT ILLNESS: The patient is a 27 y.o. female that presents for a wound chec k. Patient returns and is overall doing okay. She had a staph infection and she has been wo rking with Tian Bhandari and she did a swab about 2 weeks. Once she got the results back she was given Bactrim to take. She is still having difficulty sleeping, she feels . The burning pain is so bad that sometimes it causes her to cry. The burning will come on randomly and th e pain will make her drop to her knees. She would like to get She was instructed to come here for follow up care due to pain on/around the left clavicle. She has a puffed up section. She called here requesting an MRI and was instructed to come i n and be seen to get one ordered. She rates her pain 10+/10. When she sits she has noticed t he wound spot bulging and causing more pain. Current Outpatient Prescriptions Medication Sig Dispense Refill acyclovir (ZOVIRAX) 5% ointment Apply topically as needed. buprenorphine (SUBUTEX) 8 mg SUBL take 1 tablet by mouth every 24 hours for pain 0 lactulose 10 g/15 mL solution Take 30 mLs by mouth 2 times daily. For constipation 240 mL 2 ondansetron (ZOFRAN) 8 MG tablet Take 4 mg by mouth 3 times daily. polyethylene glycol (MIRALAX) powder Take 175 g by mouth 2 times daily. SPRINTEC 28 0.25-35 MG-MCG per tablet Take [...] lungs every 4 hours as need ed. zonisamide (ZONEGRAN) 100 mg capsule Take 100 mg by mouth 4 times daily. No current facility-administered medications for this visit. [...] does not drink alcohol or use drugs. REVIEW OF SYSTEMS GENERALLY: No fever, no night sweats, no anemia, + fatigue, no recent profound weight changes. EYES: No eye problems, no use of [...] present illness. In addition, the patient has numbness and pain of left arms, numbness in both leg s, awake with numbness and pain, weakness, muscle aching, pain in neck and back. PSYCHIATRIC: No depression, + difficulty sleeping, no sleep disorders, no anxiety, no bipo lar disorder, no psychotic episodes. CARDIOVASCULAR: No heart attacks, no heart [...] frequency, no painful or difficult urination, no incontinence. ENDOCRINE: No diabetes, no thyroid disease, no osteopenia or osteoporosis, no breast drain age. SKIN: No breast lumps, no skin changes, no rashes, no itches. HEMATOLOGIC/LYMPHATIC: No enlarged lymph nodes, no easy or unusual bleeding, no personal h istory of cancer. RHEUMATOLOGIC: No joint arthritis, no rheumatoid arthritis. INTERIM PHYSICAL EXAMINATION: Blood pressure 124/69, pulse 75, height 1.702 m (5' 7"), weight 63.3 kg (139 lb 8.8 oz), no t currently . Body mass index is 21.86 kg/m. GENERAL: Ying Saunders is in no acute distress with unlabored respirations. The p atient does not appear uncomfortable throughout the exam today. The skin appears to be healing well at wound site. Tender to palpation over the upper left thoracic area. HEENT: Head: Normocephalic/atraumatic with no areas of recent trauma. Eyes: Normal sclerae without icterus. Ears: No drainage or tenderness. Nasopharnyx: Clear without drainage. Oropharnyx: Clear without erythema. NECK (ANTERIOR): Supple. CHEST: Clear to ausculation. HEART: Regular rate and rhythm. ABDOMEN: Soft, non-tender, non-distended, and without palpable masses. The patient is not o bese. EXTREMITIES: No cyanosis, clubbing, or edema. There is no evidence of infection. There does not appear to be an open wound but she has a bandage covering it with prescribed cream crusting on top. ASSESSMENT: Encounter Diagnoses Name Primary? Staph skin infection Yes Thoracic neuritis Thoracic spinal stenosis Chronic pain syndrome Past Medical History: Diagnosis Date Complication of anesthesia 2010 allergy to propfol had a seizure during surgery - used it since then without problems Fibromyalgia H/O cold sores Lumbar stenosis Migraine Pneumonia PLAN: Overall, the patient is doing okay. The patient was recently seen by Tian Bhandari 2 weeks ago with wound swab per patient repor t. Her antibiotic was changed following culture. She feels like her wound may be improving but subcutaneously she refills exquisite tenderness and pain just to the left of the incisi on. This may be musculoskeletal or soft tissue. MRI is recommended to verify that deeper i nfection is not a contributing factor. Dr. Roman received review the case does not feel the hardware would be contributing to her symptoms. If he is not showing any soft tissue abnormalities or infection I would defer th is case back to wound care and pain management. Mari Madera PA-C, personally performed the services described in this documentati on, as scribed by RIA Chen in my presence, and it is both accurate and complete. Mari Birmingham PA-C 03/31/2018 ELECTRONICALLY SIGNED BY: Mari Birmingham PA-C, 03/31/2018 16:47Rios, Erinn, [facility] - 1545 PDTREVIEW OF SYSTEMS GENERALLY: No fever, no night sweats, no anemia, + fatigue, no recent profound weight changes. EYES: No eye problems, no use of [...] present illness. In addition, the patient has numbness and pain of left arms, numbness in both leg s, awake with numbness and pain, weakness, muscle aching, pain in neck and back. PSYCHIATRIC: No depression, + difficulty sleeping, no sleep disorders, no anxiety, no bipo lar disorder, no psychotic episodes. CARDIOVASCULAR: No heart attacks, no heart [...] frequency, no painful or difficult urination, no incontinence. ENDOCRINE: No diabetes, no thyroid disease, no osteopenia or osteoporosis, no breast drain age. SKIN: No breast lumps, no skin changes, no rashes, no itches. HEMATOLOGIC/LYMPHATIC: No enlarged lymph nodes, no easy or unusual bleeding, no personal h istory of cancer. RHEUMATOLOGIC: No joint arthritis, no rheumatoid arthritis. in this encounter Plan of Treatment +--------+ [...] | | | | | | [place] [address] | | | | | | [phone] | | | | | | | | +--------+ + + + + | 09/22/ | Office | Neurology | Ronnie Schultz MD | | | 2018 | Visit | | [address] | | | | | | [place] | | | | | | [address] | | | | | | | | +--------+ + + + + + +--------+ + + | Name | Priori | Associated Diagnoses | Order Schedule | | | ty | | | + +--------+ + + | MRI Thoracic Spine w wo Contrast | Routin | Thoracic neuritis | Expected: | | | e | Thoracic spinal | 03/31/2018, Expires: | | | | stenosis Staph skin | 03/31/2019 | | | | infection | | + +--------+ + + as of this encounter Visit Diagnoses + + | Diagnosis | + + | Staph skin infection - Primary | + + | Unspecified local infection of skin and subcutaneous tissue | + + | Thoracic neuritis | + + | Thoracic or lumbosacral neuritis or radiculitis, unspecified | + + | Thoracic spinal stenosis | + + | Spinal stenosis of thoracic region | + + | Chronic pain syndrome | + +
--- OUTSIDE RECORDS SUMMARY | ~2018-04-29 | XMS | Encounter Summary ---
Demographics + + + | Address | [address] | | | [place] [address] | + + + | Home Phone | | + + + | Preferred Language | Unknown | + + + | Marital Status | | + + + | Alevism Affiliation | Unknown | + + + | Race | Unknown | + + + | Ethnic Group | Unknown | + + + Author + + + | Author | [facility] | | | and [place] | + + + | Organization | [facility] | | | and [...] [place] | | | | | [address] | | + + + + + Care Team Providers + +------+ + | Care Cancer Spec Name | Role | Phone | + +------+ + | Denis Starks DO | PCP | | + +------+ + Encounter Details +--------+ + + + + | Date | Type | Department | Care Team | Description | +--------+ + + + + | 04/05/ | Procedure | [facility] | Ronnie Schultz MD | Bilateral carpal | | 2018 | visit | HOSPITAL [facility]Y | [address] | tunnel syndrome; | | | | CLINIC [address] | [place], [place] | Cervical | | | | [place], | [address] | radiculopathy; | | | | [place] [address] | | Paresthesia and pain | | | | [phone] | | of both upper | | | | | | extremities | +--------+ + + + + Social [...] | | | | | | [place] [address] | | | | | | [phone] | | | | | | | | +--------+ + + + + | 09/22/ | Office | Neurology | Ronnie Schultz MD | | | 2018 | Visit | | [address] | | | | | | [place] | | | | | | [address] | | | | | | | [...] | | + +--------+ + + + in this encounter Visit Diagnoses + + | Diagnosis | + + | Bilateral carpal tunnel syndrome | + + | Carpal tunnel syndrome | + + | Cervical radiculopathy | + + | Brachial neuritis or radiculitis nos | + + | Paresthesia and pain of both upper extremities | + + | Disturbance of skin sensation | + +"
--- OUTSIDE RECORDS SUMMARY | ~2018-04-29 | XMS | Encounter Summary ---
Demographics + + + | Address | [address] | | | [place] [address] | + + + | Home Phone | | + + + | Preferred Language | Unknown | + + + | Marital Status | | + + + | Advent Affiliation | Unknown | + + + | Race | Unknown | + + + | Ethnic Group | Unknown | + + + Author + + + | Author | [facility] | | | and [place] | + + + | Organization | [facility] | | | and [place] [...] [place] | | | | | [address] | | + + + + + Care Team Providers + +------+ + | Care Photo Journalist Name | Role | Phone | + [...] | | stenosis | [place], | [place] [address] | | | | | F/U Discuss | [place] [address] | Phone: | | | | | MRI K[facility] | Phone: | [phone] | | | | | Procedures | [phone] | Fax: | | | | | OFFICE VISIT | Fax: | [phone] | | | | | EXTENDED | [phone] | | +--------+--------+ + + + + [...] spine | | | | [address] | [address] [place] | (Primary Dx); | | | | [place], [place] | [place] [address] | Delayed wound | | | | [address] | [phone] | healing | | | | [phone] | | | +--------+---------+ + + + [...] encounter Instructions Patient Instructions - Cass Griffin, Plant Anatomy Teacher - 04/23/2018 0945 PDTIt was a pleasure [...] from the original. Aman Menezes PA-C [address] [facility] [place] [address] PHONE: FAX: NEUROSURGERY FOLLOW-UP CHIEF COMPLAINT: Chief [...] | | | | | | [place] [address] | | | | | | [phone] | | | | | | | | +--------+ + + + + | 09/22/ | Office | Neurology | Ronnie Schultz MD | | | 2018 | Visit | | [address] | | | | | | [place], [place] | | | | | | [address] | | | | | | | | +--------+ + + + + as of this encounter Visit Diagnoses + + | Diagnosis | + + | S/P fusion of thoracic spine - Primary | + + | Delayed wound healing | + + | Open wound(s) (multiple) of unspecified site(s), complicated | + +
--- OUTSIDE RECORDS SUMMARY | ~2018-04-29 | XMS | Encounter Summary ---
Demographics + + + | Address | [address] | | | [place] [address] | + + + | Home Phone | | + + + | Preferred Language | Unknown | + + + | Marital Status | | + + + | Druze Affiliation | Unknown | + + + | Race | Unknown | + + + | Ethnic Group | Unknown | + + + Author + + + | Author | [facility] | | | and [place] | + + + | Organization | [facility] | | | and [place] [...] [place], [place] | | | | | [address] | | + + + + + Care Team Providers + +------+ + | Care Shell Machine Operator Name | Role | Phone | + [...] [address] | | | | | [place] [address] | | | | | | [phone] | | | +--------+ + + + [...] | | | | | | [place] [address] | | | | | | [phone] | | | | | | | | +--------+ + + + + | 09/22/ | Office | Neurology | Ronnie Schultz MD | | | 2018 | Visit | | [address] | | | | | | [place] | | | | | | [address] | | | | | | | | +--------+ + + + + as of this encounter Visit Diagnoses Not on filein this encounter"
--- OUTSIDE RECORDS SUMMARY | ~2018-04-29 | XMS | Encounter Summary ---
Demographics + + + | Address | [address] | | | [place] [address] | + + + | Home Phone | | + + + | Preferred Language | Unknown | + + + | Marital Status | | + + + | Gnosticist Affiliation | Unknown | + + + | Race | Unknown | + + + | Ethnic Group | Unknown | + + + Author + + + | Author | [facility] | | | and [place] | + + + | Organization | [facility] | | | and [place] [...] [place], [place] | | | | | [address] | | + + + + + Care Team Providers + +------+ + | Care Rn Building Name | Role | Phone | + +------+ + | Denis Starks DO | PCP | | + +------+ + Encounter Details +--------+ + + + + | Date | Type | Department | Care Team | Description | +--------+ + + + + | 04/24/ | Documentati | [facility] | Earnestine Anand RN | | | 2018 | on | [facility] | | | | | | CLINIC [address] | | | | | | [address] [place], | | | | | | [place] [address] | | | | | | [phone] | | | +--------+ + + + [...] + + + as of this encounter Progress Notes Earnestine Anand RN - 04/24/2018 0947 PDTCalled and informed pt that she is scheduled at [facility] at 7 AM for spinal tap, pt stated understanding /CORTNEY Crainin this encounter Plan of Treatment +--------+ + [...] | | | | | | [place] [address] | | | | | | [phone] | | | | | | | | +--------+ + + + + | 09/22/ | Office | Neurology | Ronnie Schultz MD | | | 2018 | Visit | | [address] | | | | | | [place] | | | | | | [address] | | | | | | | | +--------+ + + + + as of this encounter Visit Diagnoses Not on filein this encounter"
--- OUTSIDE RECORDS SUMMARY | ~2018-04-29 | XMS | Encounter Summary ---
Demographics + + + | Address | [address] | | | [place] [address] | + + + | Home Phone | | + + + | Preferred Language | Unknown | + + + | Marital Status | | + + + | Orthodoxy Affiliation | Unknown | + + + | Race | Unknown | + + + | Ethnic Group | Unknown | + + + Author + + + | Author | [facility] | | | and [place] | + + + | Organization | [facility] | | | and [...] [place] | | | | | [address] | | + + + + + Care Team Providers + +------+ + | Care Group Managing Director Name | Role | Phone | + +------+ + | Denis Starks DO | PCP | | + +------+ + Reason for Visit +--------+ + | Reason | Comments | +--------+ + | Other | | +--------+ + Encounter Details +--------+ + + + + | Date | Type | Department | Care Team | Description | +--------+ + + + + | 04/25/ | Telephone | [facility] | RiriAman, | Other | | 2017 | | NEUROSURGERY [address] | PA-C [address] | | | | | [address] | [address] [place] | | | | | [place], [place] | [place] [address] | | | | | [address] | [phone] | | | | | [phone] | | | +--------+ + + + [...] | | | | | | [place] [address] | | | | | | [phone] | | | | | | | | +--------+ + + + + | 09/22/ | Office | Neurology | Ronnie Schultz MD | | | 2018 | Visit | | [address] | | | | | | [place] | | | | | | [address] | | | | | | | | +--------+ + + + + as of this encounter Visit Diagnoses Not on filein this encounter"
--- OUTSIDE RECORDS SUMMARY | ~2018-04-29 | XMS | Encounter Summary ---
Demographics + + + | Address | [address] | | | [place] [address] | + + + | Home Phone | | + + + | Preferred Language | Unknown | + + + | Marital Status | | + + + | Presybeterian Affiliation | Unknown | + + + | Race | Unknown | + + + | Ethnic Group | Unknown | + + + Author + + + | Author | [facility] | | | and [place] | + + + | Organization | [facility] | | | and [...] [place] | | | | | [address] | | + + + + + Care Team Providers + +------+ + | Care Tailing Hand Name | Role | Phone | + +------+ + | Denis Starks DO | PCP | | + +------+ + Reason for Visit + + + | Reason | Comments | + + + | Non Healing Wound | | + + + | Wound Dehiscence | | + + + Encounter Details +--------+---------+ + + + | Date | Type | Department | Care Team | Description | +--------+---------+ + + + | 03/20/ | Office | [facility] | Tian Bhandari, | History of wound | | 2018 | Visit | CLIN[address] | REGIONAL SALES ENGINEER [address] | infection (Primary | | | | Street [place], | [place], [place] | Dx); Delayed | | | | [place] [address] | [address] | surgical wound | | | | [phone] | | healing, subsequent | | | [...] + + + | Blood Pressure | 100/64 | 03/20/20181232 PDT | + + + + | Pulse | 60 | 03/20/20181232 PDT | + + + + | Temperature | 36.9 C (98.4 F) | 03/20/20181232 PDT | + + + + | [...] Patient Instructions - Tian Bhandari ARNP - 03/20/2018 1230 PDTContinue the alginate wou nd packing until the Iodosorb gel is available then changed to Iodosorb gel every other day. in this encounter Progress Notes Tian Bhandari ARNP - 03/20/2018 1230 PDTFormatting of this note may be different from farzana argueta. Subjective: Patient ID: Ying Saunders is a 27 y.o. female. Non Healing Wound She was originally treated more than 14 days ago. The maximum temperature noted was less th an 100.4 F. There has been bloody discharge from the wound. There is no redness present. The re is no swelling present. The pain has not changed. She has no difficulty moving the affect ed extremity or digit. Wound Dehiscence Patient's medications, allergies, past medical, surgical, social and family histories were obtained and reviewed as appropriate. Review of Systems Skin: Positive for poor wound healing. Objective: BP 100/64 | Pulse 60 | Temp 36.9 C (98.4 F) (Temporal) Physical Exam Constitutional: She is oriented to person, place, and time. She appears well-developed and well-nourished. Cardiovascular: Normal rate and regular rhythm. Pulmonary/Chest: Effort normal. Musculoskeletal: Normal range of motion. She exhibits tenderness. Neurological: She is alert and oriented to person, place, and time. Skin: Skin is warm and dry. Assessment: CC: Delayed surgical wound healing. S: States that the wound has not changed. Complains today of new pain pointing to her mid back and rib cage. She tried to schedule a follow-up appointment with Dr. Koch's office her surgeon, but was told that she needed to follow-up. The wound clinic. O: 27-year-old very thin fragile appearing female who walks with the aid of a cane. She is here for follow-up of a thoracic spine surgical wound. After removing the dressing there i s an open wound with mucosal tissue. Using pickups and scissors the mucosal loose tissue wa s removed. Wound edges and periwound were intact. The wound was then measured, cleansed fo llowed by Iodosorb gel and a protective dressing. No clinical signs of infection were prese nt. A: Delayed healing surgical wound with no significant change in circumference, and minimal decrease in wound depth since her March 03 appointment. I don't believe the current new luis n she is experiencing is actually related directly to the wound, but could be related to the surgery. I explained to her that her particular surgery was not an area of expertise to me and that she did need to follow back up with the surgeons or someone there in the office. Plan: She is to continue with the current wound care until the Iodosorb gel that I am ordering to day is available. When available she is to dress the wound every other day using the Iodoso rb gel and protective dressing. We will contact the surgeon's office and recommend that the y see her in follow-up. in this encounter Plan of Treatment +--------+ [...] | | | | | | [place] [address] | | | | | | [phone] | | | | | | | | +--------+ + + + + | 09/22/ | Office | Neurology | Ronnie Schultz MD | | | 2018 | Visit | | [address] | | | | | | [place] | | | | | | [address] | | | | | | | | +--------+ + + + + as of this encounter Visit Diagnoses + + | Diagnosis | + + | History of wound infection - Primary | + + | Delayed surgical wound healing, subsequent encounter | + + | Thoracic spinal stenosis | + + | Spinal stenosis of thoracic region | + +"
--- OUTSIDE RECORDS SUMMARY | ~2018-04-29 | XMS | Encounter Summary ---
Demographics + + + | Address | [address] | | | [place] [address] | + + + | Home Phone | | + + + | Preferred Language | Unknown | + + + | Marital Status | | + + + | Latter-Day Affiliation | Unknown | + + + | Race | Unknown | + + + | Ethnic Group | Unknown | + + + Author + + + | Author | [facility] | | | and [place] | + + + | Organization | [facility] | | | and [...] [place] | | | | | [address] | | + + + + + Care Team Providers + +------+ + | Care Quick Technician Name | Role | Phone | [...] | | | [address] [place], | [address] | radiculopathy; | | | | [place] [address] | | Paresthesia and pain | | | | [phone] | | of both upper | | [...] | | | | | | [place] [address] | | | | | | [phone] | | | | | | | | +--------+ + + + + | 09/22/ | Office | Neurology | Ronnie Schultz MD | | | 2018 | Visit | | [address] | | | | | | [place] | | | | | | [address] | | | | | | | [...]
--- OUTSIDE RECORDS SUMMARY | ~2018-04-29 | XMS | Encounter Summary ---
Demographics + + + | Address | [address] | | | [place] [address] | + + + | Home Phone | | + + + | Preferred Language | Unknown | + + + | Marital Status | | + + + | Shinto Affiliation | Unknown | + + + | Race | Unknown | + + + | Ethnic Group | Unknown | + + + Author + + + | Author | [facility] | | | and [place] | + + + | Organization | [facility] | | | and [place] [...] [place] | | | | | [address] | | + + + + + Care Team Providers + +------+ + | Care Cosmetician Name | Role | Phone | + +------+ + | Denis Starks DO | PCP | | + +------+ + Reason for Visit + + + | Reason | Comments | + + + | Neurology | | | Appointment | | + + + Encounter Details +--------+ + + + + | Date | Type | Department | Care Team | Description | +--------+ + + + + | 04/07/ | Telephone | [facility] | Ronnie Schultz MD | Neurology | | 2018 | | HOSPITAL NEUROLOGY | [address] | Appointment | | | | CLINIC [address] | [place] | | | | | [address] [place], | [address] | | | | | [place] [address] | | | | | | [phone] | | | +--------+ + + + [...] | | | | | | [place] [address] | | | | | | [phone] | | | | | | | | +--------+ + + + + | 09/22/ | Office | Neurology | Ronnie Schultz MD | | | 2018 | Visit | | [address] | | | | | | [place] | | | | | | [address] | | | | | | | | +--------+ + + + + as of this encounter Visit Diagnoses Not on filein this encounter"
--- OUTSIDE RECORDS SUMMARY | ~2018-04-29 | XMS | Encounter Summary ---
Demographics + + + | Address | [address] | | | [place] [address] | + + + | Home Phone | | + + + | Preferred Language | Unknown | + + + | Marital Status | | + + + | Orthodox Affiliation | Unknown | + + + | Race | Unknown | + + + | Ethnic Group | Unknown | + + + Author + + + | Author | [facility] | | | and [place] | + + + | Organization | [facility] | | | and [...] | [place] | | | | | [address] | | + + + + + Care Team Providers + +------+ + | Care Surveyor Hydrographic Name | Role | Phone | + +------+ + | Denis Starks DO | PCP | | + +------+ + Reason for Visit +--------+ + | Reason | Comments | +--------+ + | Pain | | +--------+ + Encounter Details +--------+ + + + + | Date | Type | Department | Care Team | Description | +--------+ + + + + | 08/08/ | Telephone | [facility] | Daljit Roman, | Pain | | 2018 | | NEUROSURGERY [address] | DO [address] | | | | | [address] | [address] [place], | | | | | [place], [place] | [place] [address] | | | | | [address] | [phone] | | | | | [phone] | | | +--------+ + + + [...] | | | | | [address] [place] | | | | | | [place] [address] | | | | | | [phone] | | | | | | | | +--------+ + + + + | 09/22/ | Office | Neurology | Ronnie Schultz MD | | | 2018 | Visit | | [address] | | | | | | [place] | | | | | | [address] | | | | | | | | +--------+ + + + + as of this encounter Visit Diagnoses Not on filein this encounter"
--- OUTSIDE RECORDS SUMMARY | ~2018-04-29 | XMS | Encounter Summary ---
Demographics + + + | Address | [address] | | | [place] [address] | + + + | Home Phone | | + + + | Preferred Language | Unknown | + + + | Marital Status | | + + + | Jewish Affiliation | Unknown | + + + | Race | Unknown | + + + | Ethnic Group | Unknown | + + + Author + + + | Author | [facility] | | | and [place] | + + + | Organization | [facility] | | [...] [place] | | | | | [address] | | + + + + + Care Team Providers + +------+ + | Care Knitted Garment Finisher Name | Role | Phone | + +------+ + | Denis Starks DO | PCP | | + +------+ + Reason for Visit + + + | Reason | Comments | + + + | Wound Infection | | + + + | Non Healing Wound | | + + + | Wound Dehiscence | | + + + Encounter Details +--------+---------+ + + + | Date | Type | Department | Care Team | Description | +--------+---------+ + + + | 02/13/ | Office | [facility] | Aman Menezes, | Delayed surgical | | 2017 | Visit | CLINIC [address] [place] [address] | [place] [address] | wound healing, | | | | [address] [place], | [address] | initial encounter | | | | [place] [address] | [place] [address] | (Primary Dx); Wound | | | | [phone] | [phone] | dehiscence; History | | | | | | of wound infection | | | | | Tian Bhandari, | | | | | | PARTS SPECIALIST [address] [facility] | | | | | | [place], [place] | | | | | | [id number] | | | | | | | | +--------+---------+ + + + [...] + + + | Blood Pressure | 117/55 | 02/13/20181109 PDT | + + + + | Pulse | 84 | 02/13/20181109 PDT | + + + + | Temperature | 36.9 C (98.4 F) | 02/13/20181109 PDT | + + + + | [...] Patient Instructions - Tian Bhandari ARNP - 02/13/2018 1115 PDTContinue wound care for a n additional week then may discontinue.in this encounter Progress Notes Tian Bhandari ARNP - 02/13/2018 1115 PDTFormatting of this note may be different from th e original. Subjective: Patient ID: Ying Saunders is a 27 y.o. female. Wound Infection She was originally treated more than 14 days ago. The maximum temperature noted was less th an 100.4 F. There has been no drainage from the wound. There is no redness present. There is no swelling present. The pain has not changed. There is difficulty moving the extremity or digit due to pain. Non Healing Wound Wound Dehiscence Patient's medications, allergies, past medical, surgical, social and family histories were obtained and reviewed as appropriate. Review of Systems Skin: Positive for poor wound healing. Objective: BP 117/55 | Pulse 84 | Temp 36.9 C (98.4 F) (Temporal) Physical Exam Constitutional: She is oriented to person, place, and time. She appears well-developed. Cardiovascular: Normal rate and regular rhythm. Pulmonary/Chest: Effort normal. Neurological: She is alert and oriented to person, place, and time. Skin: Skin is warm. Assessment: CC: Delayed healing surgical wound; postop wound infection. S: Reports that she continues to have significant pain involving her left side. Did receiv e the dressings as ordered for her wound care, notes that "they're quite large". O: 27-year-old thin, fragile appearing female who walks with the aid of a cane. She is her e today for follow-up of graphic spinal surgical wound. After removing the dressing there i s now 99.9% scar tissue with a very small almost pinpoint, very shallow remaining open area. Skin integrity is otherwise intact. A: Delayed healing surgical wound history with history of wound infection has responded cristiane y well to wound care with 99.9% closure. Plan: She has a schedule appointment at this time for follow-up of her continued pain. Instructe d that she continues a small Band-Aid to cover the wound until completely closed. At this t cheikh I anticipate within 5-7 days it will be resolved. No follow-up is needed at this time. in this encounter Plan of Treatment +--------+ [...] | | | | | | [place] [address] | | | | | | [phone] | | | | | | | | +--------+ + + + + | 09/22/ | Office | Neurology | Ronnie Schultz MD | | | 2018 | Visit | | [address] | | | | | | [place] | | | | | | [address] | | | | | | | | +--------+ + + + + as of this encounter Visit Diagnoses + + | Diagnosis | + + | Delayed surgical wound healing, initial encounter - Primary | + + | Wound dehiscence | + + | Disruption of external operation (surgical) wound | + + | History of wound infection | + + Admitting Diagnoses + + | Diagnosis | + + | Encounter for post surgical wound check | + +
--- OUTSIDE RECORDS SUMMARY | ~2018-04-29 | XMS | Encounter Summary ---
Demographics + + + | Address | [address] | | | [place] [address] | + + + | Home Phone | | + + + | Preferred Language | Unknown | + + + | Marital Status | | + + + | Quaker Affiliation | Unknown | + + + | Race | Unknown | + + + | Ethnic Group | Unknown | + + + Author + + + | Author | [facility] | | | and [place] | + + + | Organization | [facility] | | | and [place] [...] [place], [place] | | | | | [address] | | + + + + + Care Team Providers + +------+ + | Care Document Preparer Microfilming Name | Role | Phone | + [...] [place] | | | | | [phone] | [place] [address] | | +--------+ + + + + [...] | | | | | | [place] [address] | | | | | | [phone] | | | | | | | | +--------+ + + + + | 09/22/ | Office | Neurology | Ronnie Schultz MD | | | 2018 | Visit | | [address] | | | | | | [place], [place] | | | | | | [address] | | | | | | | [...]
--- OUTSIDE RECORDS SUMMARY | ~2018-04-29 | XMS | Encounter Summary ---
Demographics + + + | Address | [address] | | | [place] [address] | + + + | Home Phone | | + + + | Preferred Language | Unknown | + + + | Marital Status | | + + + | Baptism Affiliation | Unknown | + + + | Race | Unknown | + + + | Ethnic Group | Unknown | + + + Author + + + | Author | [facility] | | | and [place] | + + + | Organization | [facility] | | | and [...] [place] | | | | | [address] | | + + + + + Care Team Providers + +------+ + | Care Hvac Sales Representative Name | Role | Phone | + +------+ + | Denis Starks DO | PCP | | + +------+ + Reason for Visit + + + | Reason | Comments | + + + | Wound Infection | | + + + Encounter Details +--------+ + + + + | Date | Type | Department | Care Team | Description | +--------+ + + + + | 03/04/ | Telephone | [facility] | Tian Bhandari, | Wound Infection | | 2018 | | CARE [address] | WAX BLENDER [address] [facility] | | | | | Street [place], | [place], [place] | | | | | [place] [address] | [address] | | | | | [phone] | | | +--------+ + + + [...] | | | | | | [place] [address] | | | | | | [phone] | | | | | | | [...] + | Diagnosis | + + | Postoperative wound infection, subsequent encounter - Primary | + +"
--- OUTSIDE RECORDS SUMMARY | ~2018-04-29 | XMS | Encounter Summary ---
Demographics + + + | Address | [address] | | | [place] [address] | + + + | Home Phone | | + + + | Preferred Language | Unknown | + + + | Marital Status | | + + + | Confucianist Affiliation | Unknown | + + + | Race | Unknown | + + + | Ethnic Group | Unknown | + + + Author + + + | Author | [facility] | | | and [place] | + + + | Organization | [facility] | | | and [...] | [place] | | | | | [address] | | + + + + + Care Team Providers + +------+ + | Care Import Export Clerk Name | Role | Phone | + [...] | Visit | HOSPITAL NEUROLOGY | Bradley, MAXILLOFACIAL PROSTHETICS DENTIST [address] | tunnel syndrome | | | | CLINIC [address] | [address] [facility] [place], | (Primary Dx); | | | | [place], | [place] [address] | Cervical | | | | [place] [address] | [phone] | radiculopathy; | | | | [phone] | | Paresthesia and pain | | [...] are taking other medicines. You may use gokw-xsc-xsfbydi medicine as directed on the bottle to [...] groin or genital area Date Last Reviewed: 02/10/201619991797-9558 [employer]. [address] [place] [address], [place] [address]. All righ ts reserved. This information is not intended as a substitute for professional medical care. Always follow your healthcare professional's instructions. Pain Management: Chronic You have a painful condition that has required frequent use of opioid pain medicine. Your [facility] provider wants you to receive the best possible care for your problem. To achieve this,you must have apersonal doctor who can supervise a treatment plan for you. You may contact one of the doctors whose name has been given to you. Or you may locate a [facility] doctor on your own. If your doctor [...] is advisable. Date Last Reviewed: 10/10/2016 [employer]. [address] [place] [address]. All righ ts reserved. This information is [...] a healthy manner. Date Last Reviewed: 12/10/2016 [employer]. [address] [place] [address]. All righ ts reserved. This information is [...] itself can't be cured. Date Last Reviewed: 12/10/201619994588-7591 [employer]. [address] [place] [address]. All righ ts reserved. This information is not intended as a substitute for professional medical care. Always follow your healthcare professional's instructions. in this encounter Progress Notes Bradley Meza, SHONNA - 02/05/2018 1445 PDTFormatting of this note may be different from the original. Patient: Ying Saunders Medical Record: [id number] Date of Services: 02/05/2018 Referring Doctor: Denis [...] clinic. They plan to transition her from [place] to buprenorphine to help with h er [...] a pain clinic. Plan to transition from [place] to uprenorphine. Chronic pain syndrome 09/24/2017 Thoracic [...] and Plating; Surgeon: Daljit Roman DO; Location: [facility] MAIN OR CHOLECYSTECTOMY, LAPAROSCOPIC 08/28/10 LUMBAR LAMINECTOMY N/A 12/16/2014 Procedure: L4-5, L5-S1 Transforaminal Lumbar Interbody Fusion; Surgeon: Janelle Benedict O; Location: [facility] MAIN OR LUMBAR LAMINECTOMY N/A 06/03/2015 Procedure: T6-7 Thoracic Transforaminal Interbody Fusion w/ T3-4, T4-5, T5-6, and T6-7 Po sterolateral Fusion; Surgeon: Daljit Roman DO; Location: [facility] MAIN OR LUMBAR SPINE SURGERY 02/24/2014 [facility] Steroid injection 08/2014 [place] THORACIC SPINE SURGERY N/A 07/26/2017 Procedure: T3-5 Transforaminal Thoracic Interbody Fusion with Removal and Replacement of h ardware at T3-7; Surgeon: Daljit Roman DO; Location: [facility] MAIN OR THORACIC SPINE SURGERY 06/11/2016 spinal fusion T4-T7- at [place] with Dr. Mullen Allergies Allergen Reactions Ciprofloxacin [...] are intact. There is no dysmetria on mupvne-rv-ugss and cjrx-apei-fdmm. There are no abnormal or extraneous movements. [...] follow with the pain clinic. Transition from [place] to b uprenorphine. Continue taking tizanidine, nortriptyline, [...] | | | | | | [place] [address] | | | | | | [phone] | | | | | | | | +--------+ + + + + | 09/22/ | Office | Neurology | Ronnie Schultz MD | | | 2018 | Visit | | [address] | | | | | | [place] | | | | | | [address] | | | | | | | [...]
--- OUTSIDE RECORDS SUMMARY | ~2018-04-29 | XMS | Encounter Summary ---
Demographics + + + | Address | [address] | | | [place] [address] | + + + | Home Phone | | + + + | Preferred Language | Unknown | + + + | Marital Status | | + + + | Oriental Orthodox Affiliation | Unknown | + + + | Race | Unknown | + + + | Ethnic Group | Unknown | + + + Author + + + | Author | [facility] | | | and [place] | + + + | Organization | [facility] | | | and [place] [...] [place] | | | | | [address] | | + + + + + Care Team Providers + +------+ + | Care Oracle Bpm Consultant Name | Role | Phone | + [...] [address] [place] | | | | | [place], [place] | [place] [address] | | | | | [address] | [phone] | | | | | [phone] | | | +--------+ + + + [...] | | | | | | [place] [address] | | | | | | [phone] | | | | | | | | +--------+ + + + + | 09/22/ | Office | Neurology | Ronnie Schultz MD | | | 2018 | Visit | | [address] | | | | | | [place] | | | | | | [address] | | | | | | | | +--------+ + + + + as of this encounter Visit Diagnoses Not on filein this encounter"
--- OUTSIDE RECORDS SUMMARY | ~2018-04-29 | XMS | Clinical Summary ---
Demographics + + + | Address | [address] | | | [place] [address] | + + + | Home Phone | | + + + | Preferred Language | Unknown | + + + | Marital Status | | + + + | Mandaen Affiliation | Unknown | + + + | Race | Unknown | + + + | Ethnic Group | Unknown | + + + Author + + + | Author | [facility] | | | and [place] | + + + | Organization | [facility] [...] [place] | | | | | [address] | | + + + + + Care Team Providers + +------+ + | Care Seamless Hosiery Knitter Name | Role | Phone | + [...] | | clinic. Plan to transition from [place] to buprenorphine. | + + + + [...] | | 2018 | Visit | | MOTION PICTURE OPERATOR | wound healing, | | | | [...] | | 2018 | Visit | | MOTION PICTURE OPERATOR | infection (Primary | | | | [...] Infection | | 2017 | | | MOTION PICTURE OPERATOR | | +--------+ + + + + | 03/03/ | Office | | Tian Bhandari, | Non-healing surgical | | 2017 | Visit | | MOTION PICTURE OPERATOR | wound, subsequent | | | | [...] healing, | | | | | L, MOTION PICTURE OPERATOR | initial encounter | | | | [...] | | | | | | [place] [address] | | | | | | [phone] | | | | | | | | +--------+ + + + + | 09/22/ | Office | | Ronnie Schultz MD | | | 2018 | Visit | | [address] | | | | | | [place] | | | | | | [address] | | | | | | | [...] | [facility] - | | 08/29/ | [id number] | | [id number]: Qty: 1 on | | Spine | [...] | [facility] - | | 08/29/ | [id number] | | [id number]: Qty: 1 on | | Spine | [...] | [facility] - | | 11/30/ | [id number] | | [id number]: Qty: 1 | | Thorac | MEDT | | 2021 | | | on 07/26/2017 by Abel, | | ic | | | | /[id number] | | Daljit Cool DO | | | | | | 4-022 | | | | | | | | / | + +--------+--------+ +--------+--------+--------+ | Imp Dontaen Elizabeth Mane [id number] - | Generi | N/A: | [facility] - | | 03/23/ | 272388 | | [id number]: Qty: 1 | c | Spine | MEDT | | 2023 | 1 / | | on 12/14/2016 by Abel, | | Masoudic | | | | /12CG | | Daljit Cool DO | | al | | | | | + +--------+--------+ +--------+--------+--------+ | Imp Spn Elizabeth Mane [id number] - | Generi | N/A: | [facility] - | | 04/27/ | 438881 | | [id number]: Qty: 1 | c | Spine | MEDT | | 2023 | 1 / | | on 12/14/2016 by Abel, | | Cervic | | | | /67CM | | Daljit Cool DO | | al | | | | | + +--------+--------+ +--------+--------+--------+ | Imp Spn Spcr Cpstn 7x22mm - | Generi | N/A: | [facility] - | | 10/02/ | 732225 | | [id number]: Qty: 1 on | c | Thorac | MEDT | | 2024 | 2 / | | 07/26/2017 by Daljit Roman | | ic | | | | /[id number] | | DO [place] | | | | | | 432 | + +--------+--------+ +--------+--------+--------+ | Imp Spn Spcr Cpstn 7x22mm - | Generi | N/A: | [facility] - | | 12/13/ | 870976 | | [id number]: Qty: 1 on | c | Thorac | MEDT | | 2023 | 2 / | | 07/26/2017 by Daljit Roman | | ic | | | | /[id number] | | A, DO | | | | | | 374 | + +--------+--------+ +--------+--------+--------+ | Imp Spn [address] 4.79e927rs - | Generi | N/A: | [facility] - | | | 532946 | | [id number]: Qty: 2 on | c | Thorac | MEDT | | | 6130 / | | 07/26/2017 by Daljit Roman | | ic | | | | / | | A DO | | | | | | | + +--------+--------+ +--------+--------+--------+ | Putty Easton 10cc Dbm - | Graft | N/A: | [facility] - | | 05/15/ | [id number] | | [id number]: Qty: 1 | | Thorac | MEDT [...] | [facility] - | | 08/11/ | 303268 | | [id number]: Qty: 1 on | | Thorac | MEDT | | 2018 | 0 / | | 07/26/2017 by Daljit Roman | | ic | | | | /[id number] | | A, DO | | | | | | 29AAM | + +--------+--------+ +--------+--------+--------+ | Plate Ant [place] Cerv | Plate | N/A: | [facility] - | | | 330914 | | 42.5mm - [id number]: | | Spine | MEDT | | | 2 / / | | Qty: 1 on 12/14/2016 by | | Max | | | | | | Daljit Roman DO | | al | | | | | + +--------+--------+ +--------+--------+--------+ | Screw Slf-Drl V/A 4.0x14mm - | Screw | N/A: | [facility] | | | [id number] | | [id number]: Qty: 6 on | | Spine | DANEK - DIV | | | 4 / / | | 12/14/2016 by Daljit Roman | | Cervic | [facility] | | | | | [place] DO | | al | - SFDK | | | | + +--------+--------+ +--------+--------+--------+ | Screw Eder Solera 5.5x40mm - | Screw | N/A: | [facility] - | | | 922585 | | [id number]: Qty: 1 on | | Thorac | MEDT | | | 19486 | | 07/26/2017 by Daljit Roman | | ic | | | | / / | | A, DO | | | | | | | + +--------+--------+ +--------+--------+--------+ | Screw Eder Solera 5.5x45mm - | Screw | N/A: | [facility] - | | | [id number] | | [id number]: Qty: 3 on | | Thorac | MEDT | | | 59736 | | 07/26/2017 by Daljit Roman | | ic | | | | / / | | A, DO | | | | | | | + +--------+--------+ +--------+--------+--------+ | Screw Mas G5 Slra 7.5x40 Cn - | Screw | N/A: | [facility] - | | | 095711 | | [id number]: Qty: 1 | | Thorac | MEDT | | | 72631 | | on 07/26/2017 by Abel, | | ic | | | | / / | Daniela Cool DO | | | | | | | + +--------+--------+ +--------+--------+--------+ | Screw Eder Solera 6.5x40mm - | Screw | N/A: | [facility] - | | | 817253 | | [id number]: Qty: 1 on | | Thorac | MEDT | | | 79278 | | 07/26/2017 by Daljit Roman | | ic | | | | / / | | A, DO | | | | | | | + +--------+--------+ +--------+--------+--------+ | Screw Eder Solera 6.5x45mm - | Screw | N/A: | [facility] - | | | 935405 | | [id number]: Qty: 1 on | | Thorac | MEDT | | | 84694 | | 07/26/2017 by Daljit Roman | | ic | | | | / / | | A, DO | | | | | | | + +--------+--------+ +--------+--------+--------+ | Set Scrw Ns G5 Brk Off Ti | Screw | N/A: | [facility] - | | | 733617 | | 4.75 - [id number]: | | Thorac | MEDT | | | 0 / / | | Qty: 10 on 07/26/2017 by | | ic | | | | | | Daljit Roman DO | | | | | | | + +--------+--------+ +--------+--------+--------+ | Chips Cancellous 15cc - | | N/A: | [facility] - | | 09/08/ | 758242 | | [id number]: Qty: 1 | | Back | OSTT | | 2020 | | | on 12/16/2014 by Abel, | | | | | | /[id number] | | Daljit Cool DO | | | | | | 0-036 | | | | | | | | / | + +--------+--------+ +--------+--------+--------+ | Screw Slra Sextant 7.5.55 - | | N/A: | [facility] - | | | 952384 | | [id number]: Qty: 1 on | | Back | MEDT | | | 75173 | | 12/16/2014 by Daljit Roman | | | | | | / / | | DO [place] | | | | | | | + +--------+--------+ +--------+--------+--------+ | Imp Spn Nicholas Sext Ti | | N/A: | [facility] | | | 763995 | | 4.70daoc38 - | | Back | DANEK - DIV | | | 5070 / | | [id number]: Qty: 1 on | | | [facility] | | | / | | 12/16/2014 by Daljit Roman | | | - SFDK | | | | | A DO | | | | | | | + +--------+--------+ +--------+--------+--------+ | Imp Spn Nicholas Sext Ti 4.03l48ic | | N/A: | [facility] | | | 555336 | | - [id number]: Qty: 1 | | Back | DANEK - DIV | | | 5075 / | | on 12/16/2014 by Abel, | | | [facility] | | | / | | Daljit Cool DO | | | - SFDK | | | | + +--------+--------+ +--------+--------+--------+ | Set Scrw Ns G5 Brk Off Ti | | N/A: | [facility] | | | 221908 | | 4.75 - [id number]: | | Back | DANEK - DIV | | | 0 / / | | Qty: 5 on 12/16/2014 by | | | [facility] | | | | | Daljit Roman DO | | | - SFDK | | | | + +--------+--------+ +--------+--------+--------+ | Chips Cancellous 15cc - | | N/A: | [facility] - | | 10/07/ | 549706 | | [id number]: Qty: 1 | | Back | OSTT | | 2020 | | | on 12/16/2014 by Abel, | | | | | | /24259 | | Daljit Cool DO | | | | | | 8-032 | | | | | | | | / | + +--------+--------+ +--------+--------+--------+ | Graft Infuse Bone Kit Xs - | | N/A: | [facility] | | 01/09/ | 469048 | | [id number]: Qty: 1 on | | Back | DANEK - DIV | | 2015 | 0 / | | 12/16/2014 by Daljit Roman | | | [facility] | | | /[id number] | | DO [place] | | | - SFDK | | | 47AAD | + +--------+--------+ +--------+--------+--------+ | Imp Spn Spcr [place] [id number] | | N/A: | [facility] - | | 10/14/ | 056754 | | - [id number]: Qty: 1 | | Back | MEDT | | 3 | 1 / | | on 12/16/2014 by Abel, | | | | | | /[id number] | | Daljit Cool DO | | | | | | 018 | + +--------+--------+ +--------+--------+--------+ | Algrft Putty Easton 5c Dbm | | N/A: | [facility] - | | 06/07/ | 54787 | | - [id number]: Qty: 1 | | Back | OSTT | | 2016 | /[id number] | | on 12/16/2014 by Abel, | | | | | | 4034 / | | Daljit Cool DO | | | | | | | + +--------+--------+ +--------+--------+--------+ | Chips Cancellous 15cc - | | N/A: | [facility] - | | 10/11/ | 388241 | | [id number]: Qty: 1 | | Back | OSTT | | 2020 | | | on 12/16/2014 by Abel, | | | | | | /83469 | | Daljit Cool DO | | | | | | 0-010 | | | | | | | | / | + +--------+--------+ +--------+--------+--------+ | Imp Spn Spcr [place] [id number] | | N/A: | [facility] - | | 07/23/ | 688153 | | - [id number]: Qty: 1 | | Back | MEDT | | 2 | 2 / | | on 12/16/2014 by Abel, | | | | | | /[id number] | | Daljit Cool DO | | | | | | 516 | + +--------+--------+ +--------+--------+--------+ | Screw Eder Solera 6.5x55mm - | | N/A: | [facility] | | | 231949 | | [id number]: Qty: 2 on | | Back | DANEK - DIV | | | 77377 | | 12/16/2014 by Daljit Roman | | | [facility] | | | / / | | DO [place] | | | - SFDK | | | | + +--------+--------+ +--------+--------+--------+ | Screw Mas G5 Slra 7.5x45 Cn - | | N/A: | [facility] | | | 731916 | | [id number]: Qty: 2 | | Back | DANEK - DIV | | | 85792 | | on 12/16/2014 by Abel, | | | [facility] | | | / / | | Daljit Cool DO | | | - SFDK | | | | + +--------+--------+ +--------+--------+--------+ | Bone Chips 15cc - | | N/A: | BHUTANESE | | 12/02/ | 047752 | | [id number]: Qty: 1 | | Spine | RED CROSS - | | 2019 | | | on 06/03/2015 by Abel, | | Thorac | AMRR | | | /65149 | | Daljit Cool DO | | ic | | | | 7017 | | | | | | | | / | + +--------+--------+ +--------+--------+--------+ | Putty Easton 10cc Dbm - | | N/A: | [facility] - | | 03/03/ | 48232 | | [id number]: Qty: 1 | | Spine | OSTT | | 2017 | /[id number] | | on 06/03/2015 by Abel, | | Thorac | | | | 4-013 | | Daljit Cool DO | | ic | | | | / | + +--------+--------+ +--------+--------+--------+ | Graft Infuse Bone Kit Xs - | | N/A: | [facility] | | 05/04/ | 497851 | | [id number]: Qty: 1 on | | Spine | [...] N/A: | [facility] | | 12/02/ | 095716 | | [id number]: Qty: 1 on | | Spine | DANEK - DIV | | 3 | 2 / | | 06/03/2015 by Daljit Roman | | Thorac | [facility] | | | /[id number] | | [place], DO | | ic | - SFDK | | | 208 | + +--------+--------+ +--------+--------+--------+ | Nicholas P[address] Str Ccm-Pls 4.04n800 | | N/A: | [facility] - | | | 396288 | | - [id number]: Qty: 1 | | Spine | MEDT | | | 6120 / | | on 06/03/2015 by Abel, | | Thorac | | | | / | | Daljit Cool DO | | ic | | | | | + +--------+--------+ +--------+--------+--------+ | Imp Spn Nicholas Ti Sext Ti 5.5x45 | | N/A: | [facility] | | | 854824 | | - [id number]: Qty: 1 | | Spine | DANEK - DIV | | | 5045 / | | on 06/03/2015 by Abel, | | Thorac | [facility] | | | / | | Daljit Cool DO | | ic | - SFDK | | | | + +--------+--------+ +--------+--------+--------+ | Screw Eder Solera 5.5x35mm - | | N/A: | [facility] - | | | 557208 | | [id number]: Qty: 1 on | | Spine | MEDT | | | 30191 | | 06/03/2015 by Daljit Roman | | Thorac | | | | / / | | A, DO | | ic | | | | | + +--------+--------+ +--------+--------+--------+ | Screw Eder Solera 5.5x40mm - | | N/A: | [facility] | | | 836223 | | [id number]: Qty: 1 on | | Spine | DANEK - DIV | | | 96493 | | 06/03/2015 by Daljit Roman | | Thorac | [facility] | | | / / | | A, DO | | ic | - SFDK | | | | + +--------+--------+ +--------+--------+--------+ | Screw Eder Solera 5.5x45mm - | | N/A: | [facility] | | | 744927 | | [id number]: Qty: 3 on | | Spine | DANEK - DIV | | | 77403 | | 06/03/2015 by Daljit Roman | | Thorac | [facility] | | | / / | | DO [place] | | radha | - SFDK | | | | + +--------+--------+ +--------+--------+--------+ | Set Scrw Ns G5 Brk Off Ti | | N/A: | [facility] | | | 361581 | | 4.75 - [id number]: | | Spine | DANEK - DIV [...] N/A: | [facility] - | | | 622139 | | [id number]: Qty: 1 on | | Thorac | MEDT | | | 94387 | | 07/26/2017 | | ic | [...] [facility] | [facility] - | | | | | LAB[facility]ATORY | + + + + + | Gram Stain Result | 2+ White Blood Cells | | [facility] | | | | [facility] | | | | | [facility] [...] + | [facility] | [address] | [place] | [phone] | | [facility] | | [address] | | | - LABORATORY | | | | + + + + + | [facility] | [address] | [place] | | | [facility] | | [address] | | | - LABORATORY | | | | + + + + + MRI Thoracic Spine wo Contrast (04/10/2018 3820) + + + | Narrative | Performed [...] | [employer] | MODA | [id number] | Medica | +- | | | MEDICAID HMO | HEALTH | | id | [id number] | | | | MDCD | | | | | | | [place]MO [place] | | | | | + +--------+ +--------+ +---------+ | [employer] | MODA | [id number] | Medica | +- | | | [...] | [place] | | | 1210 | [address] | + +--------+ +--------+ + + | YING RODRIGUEZ | Person | Self | [birth year] | Home: | [address] | | [place] | al/Fam | | 1990 | +- | [place], [place] | | | hernandez | | | 1210 | [address] | + +--------+ +--------+ + +
--- OUTSIDE RECORDS SUMMARY | ~2018-04-29 | XMS | Encounter Summary ---
Demographics + + + | Address | [address] | | | [place] [address] | + + + | Home Phone [...] + | Author | [facility] | | | and Thomasana | + + + | Organization | [facility] | | | and [place] [...] [place] | | | | | [address] | | + + + + + Care Team Providers + +------+ + | Care Property Clerk Name | Role | Phone | [...] + + | 03/20/ | Office | [facility] | Tian Bhandari, | History of wound | | 2018 | Visit | [address] | [employer] WR[employer] [address] | infection (Primary | | | | Street [place], | [place], [place] | Dx); Delayed | | | | [place] [address] | [address] | surgical wound | | | | [phone] | | healing, subsequent | | | [...] | | | | | | [place] [address] | | | | | | [phone] | | | | | | | | +--------+ + + + + | 09/22/ | Office | Neurology | Ronnie Schultz MD | | | 2018 | Visit | | [address] | | | | | | [place] | | | | | | [address] | | | | | | | [...]
--- OUTSIDE RECORDS SUMMARY | ~2018-04-29 | XMS | Encounter Summary ---
Demographics + + + | Address | [address] | | | [place] [address] | + + + | Home Phone | | + + + | Preferred Language | Unknown | + + + | Marital Status | | + + + | Religion Affiliation | Unknown | + + + | Race | Unknown | + + + | Ethnic Group | Unknown | + + + Author + + + | Author | [facility] | | | and Thomasana | + + + | Organization | [facility] [...] [place], [place] | | | | | [address] | | + + + + + Care Team Providers + +------+ + | Care School Crossing Guard Name | Role | Phone | + [...] Mckenna Evans | | | | | [phone] | [place] [address] | | +--------+ + + + + [...] | | | | | | [place] [address] | | | | | | [phone] | | | | | | | | +--------+ + + + + | 09/22/ | Office | Neurology | Ronnie Schultz MD | | | 2018 | Visit | | [address] | | | | | | [place] | | | | | | [address] | | | | | | | [...]
--- OUTSIDE RECORDS SUMMARY | ~2018-04-29 | XMS | Encounter Summary ---
Demographics + + + | Address | [address] | | | [place] [address] | + + + | Home Phone [...] Author | [facility] | | | and Thomasana | + + + | Organization | [facility] | | | and [place] [...] [place], [place] | | | | | [address] | | + + + + + Care Team Providers + +------+ + | Care Commercial Loan Specialist Name | Role | Phone | + +------+ + | Denis Starks DO | PCP | | + +------+ + Encounter Details +--------+ + + + + | Date | Type | Department | Care Team | Description | +--------+ + + + + | 04/24/ | Documentati | SARINA LEYVA | Earnestine Anand RN | | | 2018 | on | [facility] | | | | | | CLINIC [address] | | | | | | [address] [place], | | | | | | [place] [address] | | | | | | [phone] | | | +--------+ + + + [...] informed pt that she is scheduled at [facility] at 7 AM for spinal tap, pt [...] | | | | | | [place] [address] | | | | | | [phone] | | | | | | | [...]
--- OUTSIDE RECORDS SUMMARY | ~2018-04-29 | XMS | Encounter Summary ---
Demographics + + + | Address | [address] | | | [place] [address] | + + + | Home Phone | | + + + | Preferred Language | Unknown | + + + | Marital Status | | + + + | Scientologist Affiliation | Unknown | + + + | Race | Unknown | + + + | Ethnic Group | Unknown | + + + Author + + + | Author | [facility] | | | and [place] | + + + | Organization | [facility] | | | and [place] [...] [place] | | | | | [address] | | + + + + + Care Team Providers + +------+ + | Care Propulsion Machinery Service Engineer Name | Role | Phone | [...] Description | +--------+---------+ + + + | 03/03/ | Office | [facility] | Tian Bhandari, | Non-healing surgical | | 2018 | Visit | [address] | DIRECTOR RETIREMENT [address] | wound, subsequent | | | | Street [place], | [place], [place] | encounter (Primary | | | | [place] [address] | [address] | Dx); History of | | | | [phone] | | | | | | | | dehiscence of wound; | | | | | | History of wound | | | | | | infection | +--------+---------+ + + + Social History [...] + | Blood Pressure | 100/60 | 03/03/20181050 PDT | + + + + | Pulse | 60 | 03/03/20181050 PDT | + + + + | Temperature | 36.7 C (98.1 F) | 03/03/20181050 PDT | + + + + | [...] Patient Instructions - Tian Bhandari ARNP - 03/03/2018 1045 PDTCleanse the wound daily w ith Betadine, allowed to dry and covered with protective dressing.in this encounter Progress Notes Tian Bhandari ARNP - 03/03/2018 1045 PDTFormatting of this note may be different from th kyara original. Subjective: Patient ID: Ying Saunders is a 27 y.o. female. Non Healing Wound She was originally treated more than 14 days ago. The maximum temperature noted was less th an 100.4 F. There has been bloody discharge from the wound. There is no redness present. The re is no swelling present. There is new pain present. She has no difficulty moving the affec sharron extremity or digit. Patient's medications, allergies, past medical, surgical, social and family histories were obtained and reviewed as appropriate. Review of Systems Skin: Positive for poor wound healing. Objective: BP 100/60 | Pulse 60 | Temp 36.7 C (98.1 F) (Temporal) Physical Exam Constitutional: She is oriented to person, place, and time. She appears well-developed. Cardiovascular: Normal rate and regular rhythm. Pulmonary/Chest: Effort normal. Musculoskeletal: Normal range of motion. Neurological: She is alert and oriented to person, place, and time. Skin: Skin is warm and dry. Assessment: CC: Lady healing surgical wound. S: Reports that about a week ago the wound which was perceived to be closed developed a roderick ble that opened and drained blood. Since then the wound has become painful again. Denies a ny recent fever. O: 27-year-old thin, fragile appearing female who walks with the aid of a cane. She is her e for follow-up of a spinal surgical wound. After removing the dressing there is an open wo und that is covered with a dry yellow scab. Upon removing the scab there is a small amount of thick yellow exudate. Area was prepared and the wound was cultured. Wound was then garry sharron with Betadine and covered with a protective dressing. Wound assessment in care was with moderate complaint of discomfort. A: Delayed healing surgical wound with a past history of infection. Possible recurrent inf ection. Plan: Will not initiate antibiotics until the wound culture results are available. Until then th e wound is to be cleansed daily with Betadine, additional Betadine applied allowed to dry an d cover with a protective dressing. We'll follow-up by phone when the results are available . in this encounter Plan of Treatment +--------+ [...] | | | | | | [place] [address] | | | | | | [phone] | | | | | | | | +--------+ + + + + | 09/22/ | Office | Neurology | Ronnie Schultz MD | | | 2018 | Visit | | [address] | | | | | | [place] | | | | | | [address] | | | | | | | [...] in this encounter Results Culture, Wound, Smear (03/03/2018 1106) + + + + + | Component | Value | Ref Range | Performed At | + + + + + | Culture | 3+ Staphylococcus aureus | | [facility] | | | | | [facility] | | | | [facility] - | | | | | LABORATORY | + + + + + | Gram Stain Result | No white blood cells | | [facility] | | | (PMNs) seen | | [facility] | | | | [facility] - | | | | | LABORATORY | + + + + + | Gram Stain Result | No squamous epithelial | | [facility] | | | cells seen | | [facility] | | | [...] + | Specimen | + + | Tissue - Back, | | Lower, Mid | + + + + +--------+ + | Organism | Antibiotic | Method | Susceptibility | + + +--------+ + | Staphylococcus | Ciprofloxacin | | <=0.5 ug/mL: | | aureus | | | Sensitive | + + +--------+ + | Staphylococcus | Clindamycin | | 0.25 ug/mL: | | aureus | | | Sensitive | + + +--------+ + | Staphylococcus | Erythromycin | | <=0.25 ug/mL: | | aureus | | | Sensitive | + + +--------+ + | Staphylococcus | Gentamicin | | <=0.5 ug/mL: | | aureus | | | Sensitive | + + +--------+ + | Staphylococcus | Levofloxacin | | <=0.12 ug/mL: | | aureus | | | Sensitive | + + +--------+ + | Staphylococcus | Linezolid | | 2 ug/mL: Sensitive | | aureus | | | | + + +--------+ + | Staphylococcus | Minocycline | | <=0.5 ug/mL: | | aureus | | | Sensitive | + + +--------+ + | Staphylococcus | Moxifloxacin | | <=0.25 ug/mL: | | aureus | | | Sensitive | + + +--------+ + | Staphylococcus | Oxacillin | | 0.5 ug/mL: | | aureus | | | Sensitive | + + +--------+ + | Staphylococcus | Penicillin G | | >=0.5 ug/mL: | | aureus | | | Resistant | + + +--------+ + | Staphylococcus | Rifampin | | <=0.5 ug/mL: | | aureus | | | Sensitive | + + +--------+ + | Staphylococcus | Tetracycline | | <=1 ug/mL: | | aureus | | | Sensitive | + + +--------+ + | Staphylococcus | Tigecycline | | <=0.12 ug/mL: | | aureus | | | Sensitive | + + +--------+ + | Staphylococcus | Trimethoprim + | | <=10 ug/mL: | | aureus | Sulfamethoxazole | | Sensitive | + + +--------+ + | Staphylococcus | Vancomycin | | 1 ug/mL: Sensitive | | aureus | | | | + + +--------+ + + + + + + | Performing | Address | City/State/Zipcode | Phone Number | | Organization | | | | + + + + + | [facility] | [address] | [place] | [phone] | | [facility] | | [address] | | | - LABORATORY | | | | + + + + + | [facility] | [address] | [place] | | | [facility] | | [address] | | | - LABORATORY | | | | + + + + + in this encounter Visit Diagnoses + + | Diagnosis | + + | Non-healing surgical wound, subsequent encounter - Primary | + + | History of dehiscence of wound | + + | History of wound infection | + +"
--- OUTSIDE RECORDS SUMMARY | ~2018-04-29 | XMS | Encounter Summary ---
Demographics + + + | Address | [address] | | | [place] [address] | + + + | Home Phone | | + + + | Preferred Language | Unknown | + + + | Marital Status | | + + + | Worship Affiliation | Unknown | + + + | Race | Unknown | + + + | Ethnic Group | Unknown | + + + Author + + + | Author | [facility] | | | and [place] | + + + | Organization | [facility] | | | and [place] | + + + | Address | Unknown | + + + | Phone | Unavailable | + + + Support + + + + + | Name | Relationship | Address | Phone | + + + + + | Mg Saunders | ECON | [address] | | | | | [place] | | | | | [address] | | + + + + + Care Team Providers + +------+ + | Care Laborer Steel Handling Name | Role | Phone | + +------+ + | Denis Starks DO | PCP | | + +------+ + Encounter Details +--------+ + + + + | Date | Type | Department | Care Team | Description | +--------+ + + + + | 04/18/ | Procedure | [facility] DOMINGO | | | | 2018 | Pass | [facility] | | | | | | IMAGING | | | | | | [phone] | | | +--------+ + + + [...] | | | | | | [place] [address] | | | | | | [phone] | | | | | | | | +--------+ + + + + | 09/22/ | Office | Neurology | Ronnie Schultz MD | | | 2018 | Visit | | [address] | | | | | | [place], [place] | | | | | | [address] | | | | | | | | +--------+ + + + + as of this encounter Visit Diagnoses Not on filein this encounter"
--- OUTSIDE RECORDS SUMMARY | ~2018-04-29 | XMS | Encounter Summary ---
Demographics + + + | Address | [address] | | | [place] [address] | + + + | Home Phone | | + + + | Preferred Language | Unknown | + + + | Marital Status | | + + + | Faith Affiliation | Unknown | + + + | Race | Unknown | + + + | Ethnic Group | Unknown | + + + Author + + + | Author | [facility] | | | and [place] | + + + | Organization | [facility] | [...] [place] | | | | | [address] | | + + + + + Care Team Providers + +------+ + | Care Client Engagement Specialist Name | Role | Phone | [...] IMAGING | | | | | | [phone] | | | +--------+ + + + [...] | | | | | | [place] [address] | | | | | | [phone] | | | | | | | | +--------+ + + + + | 09/22/ | Office | Neurology | Ronnie Schultz MD | | | 2018 | Visit | | [address] | | | | | | [place], [place] | | | | | | [address] | | | | | | | | +--------+ + + + + as of this encounter Visit Diagnoses Not on filein this encounter"
--- OUTSIDE RECORDS SUMMARY | ~2018-04-29 | XMS | Encounter Summary ---
Demographics + + + | Address | [address] | | | [place] [address] | + + + | Home Phone | | + + + | Preferred Language | Unknown | + + + | Marital Status | | + + + | Gnosticist Affiliation | Unknown | + + + | Race | Unknown | + + + | Ethnic Group | Unknown | + + + Author + + + | Author | [facility] | | | and [place] | + + + | Organization | [facility] | | | and [...] [place] | | | | | [address] | | + + + + + Care Team Providers + +------+ + | Care Type Copyist Name | Role | Phone | + [...] + + | 04/15/ | Office | [facility] | Tian Bhandari, | Delayed surgical | | 2018 | Visit | [address] | [employer] [address] | wound healing, | | | | Street [place], | [place], [place] | subsequent encounter | | | | [place] [address] | [address] | (Primary Dx); | | | | [phone] | | History of wound | | [...] | | | | | | [place] [address] | | | | | | [phone] | | | | | | | | +--------+ + + + + | 09/22/ | Office | Neurology | Ronnie Schultz MD | | | 2018 | Visit | | [address] | | | | | | [place] | | | | | | [address] | | | | | | | [...] [facility] | | | | | [facility] - | | | | | LABORATORY [...] + | [address] | [address] | [place], [place] | [phone] | | [facility] | | [address] | | | - LABORATORY | | | | + + + + + | [address] | [address] | [place], [place] | | | [facility] | | [address] | | | - LABORATORY | | [...]
--- OUTSIDE RECORDS SUMMARY | ~2018-04-29 | XMS | Encounter Summary ---
Demographics + + + | Address | [address] | | | [place] [address] | + + + | Home Phone | | + + + | Preferred Language | Unknown | + + + | Marital Status | | + + + | Episcopalian Affiliation | Unknown | + + + | Race | Unknown | + + + | Ethnic Group | Unknown | + + + Author + + + | Author | [facility] | | | and [place] | + + + | Organization | [facility] [...] [place] | | | | | [address] | | + + + + + Care Team Providers + +------+ + | Care Nurse Coordinator Name | Role | Phone | + +------+ + | Denis Starks DO | PCP | | + +------+ + Reason for Referral Evaluate & Treat (Urgent) + + + + + + + | Status | Reason | Specialty | Diagnoses / | Referred By | Referred To | | | | | Procedures | Contact | Contact | + + + + + + + | Authorized | Specialty | Neurosurgery | Diagnoses | Riri, | Castillo, | | | Services | | Delayed | Aman Mahmood, | Edinson Cool MD | | | Required | | wound | PA-C [address] | [address] | | | | | healing | [address] | [facility] | | | | | Status post | [address] | [address] [place], | | | | | thoracic | [place], | [place] | | | | | spinal | [place] [address] | [address] | | | | | fusion | Phone: | Phone: | | | | | Procedures | [phone] | [phone] | | | | | HIM 04/29/18 | Fax: | Fax: | | | | | | [phone] | [phone] | + + + + + + + Encounter Details +--------+ + + + + | Date | Type | Department | Care Team | Description | +--------+ + + + + | 04/25/ | Orders Only | [facility] | Aman Menezes, | Delayed wound | | 2018 | | NEUROSURGERY [address] | PA-C [address] | healing (Primary | | | | [address] | [address] [place] | Dx); Status post | | | | [place], [place] | [place] [address] | thoracic spinal | | | | [address] | [phone] | fusion | | | | [phone] | | | +--------+ + + + [...] | | | | | | [place] [address] | | | | | | [phone] | | | | | | | | +--------+ + + + + | 09/22/ | Office | Neurology | Ronnie Schultz MD | | | 2018 | Visit | | [address] | | | | | | [place] | | | | | | [address] | | | | | | | | +--------+ + + + + + +--------+ + + | Name | Priori | Associated Diagnoses | Order Schedule | | | ty | | | + +--------+ + + | Neurosurgery, External - AMB | Routin | Delayed wound | Ordered: 04/25/2018 | | Referral | e | healing Status post | | | | | thoracic spinal | | | | | fusion | | + +--------+ + + as of this encounter Visit Diagnoses + + | Diagnosis | + + | Delayed wound healing - Primary | + + | Open wound(s) (multiple) of unspecified site(s), complicated | + + | Status post thoracic spinal fusion | + +"
--- OUTSIDE RECORDS SUMMARY | ~2018-04-29 | XMS | Encounter Summary ---
Demographics + + + | Address | [address] | | | [place] [address] | + + + | Home Phone | | + + + | Preferred Language | Unknown | + + + | Marital Status | | + + + | Confucianism Affiliation | Unknown | + + + | Race | Unknown | + + + | Ethnic Group | Unknown | + + + Author + + + | Author | [facility] | | | and [place] | + + + | Organization | [facility] | | | and [place] [...] [place], [place] | | | | | [address] | | + + + + + Care Team Providers + +------+ + | Care Supervisor Coating Name | Role | Phone | + [...] | | | Thoracic | Zhane | [facility] | | | | | neuritis | [address] | [address] | | | | | Thoracic | [address] | [address] | | | | | spinal | [address] | [place], [place] | | | | | stenosis | [place], | [address] | | | | | Staph skin | [place] [address] | Phone: | | | | | infection | Phone: | [phone] | | | | | Procedures | [phone] | Fax: | | | | | MRI Thoracic | Fax: | [phone] | | | | | Spine w wo | [phone] | | | | | | Contrast [...] | | (surgical) | [address] | [place], | | | | | wound, not | [place], | [place] [address] | | | | | elsewhere | [place] [address] | Phone: | | | | | classified, | Phone: | [phone] | | | | | subsequent | [phone] | Fax: | | | | | encounter | Fax: | [phone] | | | | | KASSI: | [phone] | | | | | | Review [...] + + | 03/31/ | Office | 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 We will get a new MRI ordered. Once it is approved we will send the order to [facility] [place]. We will call you to let you [...] different f rom the original. J. Rayna Cloth Finishing Range Operator, PA-C [address] [facility], [address] [place] [address] PHONE: FAX: NEUROSURGERY FOLLOW-UP CHIEF COMPLAINT: Chief [...] BY: Mari Birmingham PA-C, 03/31/2018 16:47Rios, Erinn, [facility] - 1545 PDTREVIEW OF SYSTEMS GENERALLY: No [...] | | | | | | [place] [address] | | | | | | [phone] | | | | | | | | +--------+ + + + + | 09/22/ | Office | Neurology | Ronnie Schultz MD | | | 2018 | Visit | | [address] | | | | | | [place] | | | | | | [address] | | | | | | | [...]
--- OUTSIDE RECORDS SUMMARY | ~2018-04-29 | XMS | Encounter Summary ---
Demographics + + + | Address | [address] | | | [place] [address] | + + + | Home Phone [...] | [facility] | | | and [place] | + + + | Organization | [facility] | | | and [place] [...] [place] | | | | | [address] | | + + + + + Care Team Providers + +------+ + | Care Room Server Name | Role | Phone | + [...] 2018 | | CARE [address] | SIGN WIRER [address] [facility] | | | | | [address] [place], | [place], [place] | | | | | [place] [address] | [address] | | | | | [phone] | | | +--------+ + + + [...] | | | | | | [place] [address] | | | | | | [phone] | | | | | | | [...]
--- OUTSIDE RECORDS SUMMARY | ~2018-04-29 | XMS | Encounter Summary ---
Demographics + + + | Address | [address] | | | [place] [address] | + + + | Home Phone | | + + + | Preferred Language | Unknown | + + + | Marital Status | | + + + | Sikhism Affiliation | Unknown | + + + | Race | Unknown | + + + | Ethnic Group | Unknown | + + + Author + + + | Author | [facility] | | | and [place] | + + + | Organization | [facility] | | | and [...] [place] | | | | | [address] | | + + + + + Care Team Providers + +------+ + | Care Respiratory Physician Name | Role | Phone | + +------+ + | Denis Starks DO | PCP | | + +------+ + Reason for Referral Diagnostic/Screening (Routine) + +--------+ + + + + | Status | Reason | Specialty | Diagnoses / | Referred By | Referred To | | | | | Procedures | Contact | Contact | + +--------+ + + + + | Authorized | | Radiology | Diagnoses | Schultz, | [facility] | | | | | | Ronnie R, | HOSPITAL | | | | | Demyelinatin | MD [address] | | | | | g disease | [address], | [address] | | | | | ([facility]) | [address] | [place], [place] | | | | | Procedures | [place], [place] | [address] | | | | | MRI Brain w | [address] | Phone: | | | | | wo Contrast | Phone: | [phone] | | | | | | [phone] | Fax: | | | | | | Fax: | [phone] | | | | | | [phone] | | + +--------+ + + + + Reason for Visit + + + | Reason | Comments | + + + | Back Pain | | + + + Encounter Details +--------+---------+ + + + | Date | Type | Department | Care Team | Description | +--------+---------+ + + + | 04/08/ | Office | [facility] | Ronnie Schultz MD | Demyelinating | | 2018 | Visit | HOSPITAL NEUROLOGY | [address] | disease (HCC) | | | | CLINIC [address] | [place] | (Primary Dx); | | | | [address] [place], | [address] | Chronic neck and | | | | [place] [address] | | back pain; Lumbar | | | | [phone] | | spondylosis | +--------+---------+ + + + Social History [...] + + + | Blood Pressure | 120/80 | 04/08/2018 1555 PDT | + + + + | Pulse | 68 | 04/08/20181554 PDT | + + + [...] + + + + | Weight | 64 kg (141 lb 1.5 | 04/08/20181554 PDT | | | oz) | | + + + + | Height | 170.2 cm (5' 7") | 04/08/2018 1555 PDT | + + + + | Body Mass Index | 22.1 | 04/08/20185 PDT | + + + + in [...] Patient Instructions - Ronnie Schultz MD - 04/08/2018 1600 PDTFormatting of this note may be different from the original. Patient Instructions [facility] Neurology Clinic Dr. Ronnie Schultz, Neurologist Date:04/08/2018 Name:Ying Saunders :..1990 Please schedule next follow up appt with Bradley in 3months for demeylinating disease Gait disorder S/P Thoracic spine surgery You have the following tests/procedures ordered: Orders Placed This Encounter Procedures MRI Brain w wo Contrast Treatment Option- massage, Acupuncture, Over the counter heat patches (icy hot, thermacare, salonpas) , over the counter creams (aspercream, bengay cream, emu oi l), Relaxation therapy, Water therapy, Cortisone shots, Toradol Injections Suggest reading newspapers. magazines, perform word find exercises such as cross word puzz le, and scrabble, other puzzle games like SudBlendu, Mahjong. Play computer/mobile applications such as [employer] and [employer] Any Questions please call CORTNEY Colby or Dr. Schultz at [facility] Neurology Clinicin this encounter Progress Notes Ronnie Schultz MD - 04/08/2018 1600 PDTFormatting of this note may be different from the o riginal. Patient: Ying Saunders Medical Record: [id number] Date of Services: 04/09/2018 Referring Doctor: Denis Starks DO Chief Complaint: Persistent paresthesias and numbness in both upper extremities History of Present Illness: Miss Saunders was a 27-year-old right-handed lady, seen for neurologic evaluation, treated for chronic pain syndrome with chronic, persistent, cervical, thoracic, lumbosacral spine st rain with, spasms and pain with significant history of multiple thoracic and cervical spine surgeries, treated for chronic pain syndrome. Despite his surgeries, patient has not been i mproving. Her numbness impairs his in both upper extremities is present consistent for many years, at least 5 years and I reviewed the most recent MRI the brain performed 2016 demonst rating single focus of nonenhancing white matter change in the cerebrum. Given the persiste nt numbness paresthesias in both upper extremities, [place] the brain with and without clots perf ormed to determine the possibility of demyelinating disease and perform a spinal tap if clin ically indicated. Patient brought in a compress of muscle skeletal exam performed by Dr. Raji Pisano em u the patient able to work. However given her present limitations and persistent signs and symptoms, patient will undergo further evaluation and opinion. Review of Systems: Denies headache, earache, nasal [...] mouth 2 times daily for 30 days. 60 capsule 2 SPRINTEC 28 0.25-35 MG-MCG per tablet Take [...] on fire Erythromycin Rash Neurological Examination: Vitals: 04/08/18 1555 BP: 120/80 Pulse: 68 Resp: 20 PainSc: 7 PainLoc: Back MENTAL STATUS: The patient is awake, alert, and oriented to time, place, and person. [facility] is fluent. Memory, attention, comprehension, and general fund of knowledge are intact. CRANIAL NERVES: Funduscopy revealed distinct disc margins. [...] protrusi on. MOTOR EXAMINATION: Strength is 5/5 throughout, though decreased range of motion due to luis n in the neck, thoracic, and lumbosacral spine . Tone is normal. SENSORY EXAMINATION: Intact to light touch, pin prick, vibration, and proprioception. The re is no extinction on double simultaneous stimulation. DEEP TENDON REFLEXES: 2+ and symmetric. PLANTAR RESPONSES: Downgoing bilaterally GAIT: Ambulates with a cane for support but difficulty at tendon gait, Romberg was negativ e CEREBELLAR EXAMINATION: There is no dysmetria on qpqten-wx-ripm test. MISCELLANEOUS EXAM: Atraumatic, no evidence of [...] is soft and nontender, extremities equally palpable pulses.Healing scar noted in the midthoracic spine and the site of the surgery no ecchymosis or swelling demons trated Clinical Impression: Presumptive demeylinating disease Gait disorder S/P Thoracic and cervical spine surgeries Plan: Patient Instructions [facility] Neurology Clinic Dr. Ronnie Schultz, Neurologist Date:04/08/2018 Name:Ying Saunders :..1990 Please schedule next follow up appt with Bradley in 3months for Presumptive demeylinating disease Gait disorder S/P Thoracic spine surgery You have the following tests/procedures ordered: Orders Placed This Encounter Procedures MRI Brain w wo Contrast Treatment Option- massage, Acupuncture, Over the counter heat patches (icy hot, thermacare, salonpas) , over the counter creams (aspercream, bengay cream, emu oi l), Relaxation therapy, Water therapy, Cortisone shots, Toradol Injections Suggest reading newspapers. magazines, perform word find exercises such as cross word puzz le, and scrabble, other puzzle games like J Squared Mediau, Crowned Grace Internationalng. Play computer/mobile applications such as [employer] and [employer] Any Questions please call CORTNEY Colby or Dr. Schultz at [facility] Neurology Clinic Ronnie Schultz MD04/09/20188:11 Electronically signed NOTE: Part of this report was transcribed using voice recognition software. Every effort was made to ensure accuracy. However, inadvertent computerize city planning teacher errors may be present in this encounter Plan of Treatment +--------+ [...] | | | | | | [place] [address] | | | | | | [phone] | | | | | | | | +--------+ + + + + | 09/22/ | Office | Neurology | Ronnie Schultz MD | | | 2018 | Visit | | [address] | | | | | | [place] | | | | | | [address] | | | | | | | | +--------+ + + + + + +--------+ + + | Name | Priori | Associated Diagnoses | Order Schedule | | | ty | | | + +--------+ + + | MRI Brain w wo Contrast | Routin | Demyelinating | Expected: | | | e | disease (HCC) | 04/08/2018, Expires: | | | | | 04/08/2019 | + +--------+ + + as of this encounter Visit Diagnoses + + | Diagnosis | + + | Demyelinating disease (HCC) - Primary | + + | Demyelinating disease of central nervous system, unspecified | + + | Chronic neck and back pain | + + | Lumbar spondylosis | + + | Lumbosacral spondylosis without myelopathy | + +
--- OUTSIDE RECORDS SUMMARY | ~2018-04-29 | XMS | Encounter Summary ---
Demographics + + + | Address | [address] | | | [place] [address] | + + + | Home Phone [...] + | Author | [facility] | | | and [place] | + + + | Organization | [facility] | [...] | [place] | | | | | [address] | | + + + + + Care Team Providers + +------+ + | Care Garbage Collection Supervisor Name | Role | Phone | [...] [place], | | | | | [place], [place] | [place] [address] | | | | | [address] | [phone] | | | | | [phone] | | | +--------+ + + + [...] | | | | | | [place] [address] | | | | | | [phone] | | | | | | | | +--------+ + + + + | 09/22/ | Office | Neurology | Ronnie Schultz MD | | | 2018 | Visit | | [address] | | | | | | [place] | | | | | | [address] | | | | | | | | +--------+ + + + + as of this encounter Visit Diagnoses Not on filein this encounter"
--- OUTSIDE RECORDS SUMMARY | ~2018-04-29 | XMS | Encounter Summary ---
Demographics + + + | Address | [address] | | | [place] [address] | + + + | Home Phone [...] | Author | [facility] | | | and [place] | + + + | Organization | [facility] | | | and [...] [place] | | | | | [address] | | + + + + + Care Team Providers + +------+ + | Care Child Welfare Worker Name | Role | Phone | + [...] + + | 03/03/ | Office | [facility] | Tian Bhandari, | Non-healing surgical | | 2018 | Visit | CLIN[address] | SHAKE FEEDER [address] | wound, subsequent | | | | Street [place], | [place], [place] | encounter (Primary | | | | [place] [address] | [address] | Dx); History of | | | | [phone] | | | | | | | [...] | | | | | | [place] [address] | | | | | | [phone] | | | | | | | | +--------+ + + + + | 09/22/ | Office | Neurology | Ronnie Schultz MD | | | 2018 | Visit | | [address] | | | | | | [place] | | | | | | [address] | | | | | | | [...] + | [facility] | [address] | [place] | [phone] | | [facility] | | [address] | | | - LABORATORY | | | | + + + + + | [facility] | [address] | [place] | | | [facility] | | [address] | | | - LABORATORY | | | | + + + + + in this encounter Visit Diagnoses + + | Diagnosis | + + | Non-healing surgical wound, subsequent encounter - Primary | + + | History of dehiscence of wound | + + | History of wound infection | + +"
--- OUTSIDE RECORDS SUMMARY | ~2018-04-29 | XMS | Encounter Summary ---
Demographics + + + | Address | [address] | | | [place] [address] | + + + | Home Phone | | + + + | Preferred Language | Unknown | + + + | Marital Status | | + + + | Jain Affiliation | Unknown | + + + | Race | Unknown | + + + | Ethnic Group | Unknown | + + + Author + + + | Author | [facility] | | | and [place] | + + + | Organization | [facility] | [...] [place] | | | | | [address] | | + + + + + Care Team Providers + +------+ + | Care Guest Services Representative Name | Role | Phone | [...] | | healing | [address] | [facility] | | | | | Status post | [address] | [address] [place], | | | | | thoracic | [place], | [place] | | | | | spinal | [place] [address] | [address] | | | | | fusion | Phone: | Phone: | | | | | Procedures | [phone] | [phone] | | | | | HIM 04/29/18 | Fax: | Fax: | | | | | | [phone] | [phone] | + + + + + + [...] Dx); Status post | | | | [place], [place] | [place] [address] | thoracic spinal | | | | [address] | [phone] | fusion | | | | [phone] | | | +--------+ + + + [...] | | | | | | [place] [address] | | | | | | [phone] | | | | | | | | +--------+ + + + + | 09/22/ | Office | Neurology | Ronnie Schultz MD | | | 2018 | Visit | | [address] | | | | | | [place] | | | | | | [address] | | | | | | | [...]
--- OUTSIDE RECORDS SUMMARY | ~2018-04-29 | XMS | Encounter Summary ---
Demographics + + + | Address | [address] | | | [place] [address] | + + + | Home Phone | | + + + | Preferred Language | Unknown | + + + | Marital Status | | + + + | Denominational Affiliation | Unknown | + + + | Race | Unknown | + + + | Ethnic Group | Unknown | + + + Author + + + | Author | and [facility] | | | and [place] | + + + | Organization | and [facility] | | | and [...] [place] | | | | | [address] | | + + + + + Care Team Providers + +------+ + | Care Belt Dresser Name | Role | Phone | + [...] + + | 02/13/ | Office | [facility] | Aman Menezes, | Delayed surgical | | 2017 | Visit | CLINIC [address] [place] [address] | NARAYAN-Matt [address] | wound healing, | | | | Street [place], | [address] | initial encounter | | | | [place] [address] | [place] [address] | (Primary Dx); Wound | | | | [phone] | [phone] | dehiscence; History | | | | | | of wound infection | | | | | Tian Bhandari, | | | | | | QUALITY RN [address] [facility] | | | | | | [place], [place] | | | | | | [id number] | | | | | | | [...] | | | | | | [place] [address] | | | | | | [phone] | | | | | | | | +--------+ + + + + | 09/22/ | Office | Neurology | Ronnie Schultz MD | | | 2018 | Visit | | [address] | | | | | | [place] | | | | | | [address] | | | | | | | [...]
--- OUTSIDE RECORDS SUMMARY | ~2018-04-29 | XMS | Encounter Summary ---
Demographics + + + | Address | [address] | | | [place] [address] | + + + | Home Phone | | + + + | Preferred Language | Unknown | + + + | Marital Status | | + + + | Latter-Day Affiliation | Unknown | + + + | Race | Unknown | + + + | Ethnic Group | Unknown | + + + Author + + + | Author | [facility] | | | and [place]ana | + + + | Organization | [facility] | | | and [...] [place], [place] | | | | | [address] | | + + + + + Care Team Providers + +------+ + | Care Sterile Processing Tech Name | Role | Phone | + [...] Mckenna Evans | | | | | [phone] | [place] [address] | | +--------+ + + + + [...] | | | | | | [place] [address] | | | | | | [phone] | | | | | | | | +--------+ + + + + | 09/22/ | Office | Neurology | Ronnie Schultz MD | | | 2018 | Visit | | [address] | | | | | | [place], [place] | | | | | | [address] | | | | | | | [...]
--- OUTSIDE RECORDS SUMMARY | ~2018-04-29 | XMS | Encounter Summary ---
Demographics + + + | Address | [address] | | | [place] [address] | + + + | Home Phone [...] | Author | [facility] | | | and [place]ana | + + + | Organization | [facility] | | | and [...] [place] | | | | | [address] | | + + + + + Care Team Providers + +------+ + | Care Hourly Sales Staff Name | Role | Phone | + [...] [address] | | | | | [place] [address] | | | | | | [phone] | | | +--------+ + + + [...] | | | | | | [place] [address] | | | | | | [phone] | | | | | | | | +--------+ + + + + | 09/22/ | Office | Neurology | Ronnie Schultz MD | | | 2019 | Visit | | [address] | | | | | | [place] | | | | | | [id number] | | | | | | | [...]
--- OUTSIDE RECORDS SUMMARY | ~2018-04-29 | XMS | Encounter Summary ---
Demographics + + + | Address | [address] | | | [place] [address] | + + + | Home Phone | | + + + | Preferred Language | Unknown | + + + | Marital Status | | + + + | Episcopal Affiliation | Unknown | + + + | Race | Unknown | + + + | Ethnic Group | Unknown | + + + Author + + + | Author | [facility] | | | and [place] | + + + | Organization | [facility] | [...] [place] | | | | | [address] | | + + + + + Care Team Providers + +------+ + | Care Nuclear Medicine Technician Name | Role | Phone | [...] [address] | | | | | [place] [address] | | | | | | [phone] | | | +--------+ + + + [...] | | | | | | [place] [address] | | | | | | [phone] | | | | | | | | +--------+ + + + + | 09/22/ | Office | Neurology | Ronnie Schultz MD | | | 2018 | Visit | | [address] | | | | | | [place] | | | | | | [address] | | | | | | | | +--------+ + + + + as of this encounter Visit Diagnoses Not on filein this encounter"
--- OUTSIDE RECORDS SUMMARY | ~2018-04-29 | XMS | Encounter Summary ---
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 | Phone | + [...] BEHZAD FISCHER | | | | | ([facility]) | [address] | [place], [place] | | | | | Procedures | [place], [place] | [address] | | | | | MRI Brain w | [address] | Phone: | | | | | wo Contrast | Phone: | [phone] | | | | | | [phone] | Fax: | | | | | | Fax: | [phone] | | | | | | [phone] | | + +--------+ + + + [...] | | | [place], | [address] | Chronic neck and | | | | [place] [address] | | back pain; Lumbar | | | | [phone] | | spondylosis | +--------+---------+ + + [...] le, and scrabble, other puzzle games like [employer]u, Mahjong. Play computer/mobile applications such as R[employer]ye and [employer] Any Questions please call CORTNEY Colby or Dr. Schultz at [facility] Neurology Clinicin this encounter Progress Notes Ronnie Schultz MD - 04/08/2018 1600 PDTFormatting of this note may be different from the o riginal. Patient: Ying Saunders Medical Record: [id number] Date of Services: 04/09/2018 Referring Doctor: Denis [...] nt numbness paresthesias in both upper extremities, [place] the brain with and without clots perf [...] and oriented to time, place, and person. [facility] is fluent. Memory, attention, comprehension, and general [...] CEREBELLAR EXAMINATION: There is no dysmetria on vismvl-os-datf test. MISCELLANEOUS EXAM: Atraumatic, no evidence of [...] le, and scrabble, other puzzle games like Datt[employer], [employer]. Play computer/mobile applications such as [employer] and [employer] G[employer] Any Questions please call CORTNEY Colby or Dr. Schultz at [facility] Neurology Clinic Ronnie Schultz MD04/09/20188:11 Electronically signed NOTE: Part of this report was transcribed using voice recognition software. Every effort was made to ensure accuracy. However, inadvertent computerize senior net engineer errors may be present in this encounter [...] | | | | | | [place] [address] | | | | | | [phone] | | | | | | | | +--------+ + + + + | 09/22/ | Office | Neurology | Ronnie Schultz MD | | | 2018 | Visit | | [address] | | | | | | [place] | | | | | | [address] | | | | | | | [...]
[2018-04-29] MEDS ORDERED: SUBOXONE 8 MG-1 EAC1 SL (19:36)
== END 2018-04-29 21:49 | disposition home or self-care (01) ==
LOC: ED 19:15
DX: M96.89 Other intraoperative and postprocedural complications and disorders of the musculoskeletal system (principal); Z88.0 Allergy status to penicillin; Z88.1 Allergy status to other antibiotic agents; Z88.5 Allergy status to narcotic agent; Z88.8 Allergy status to other drugs, medicaments and biological substances
CPT/HCPCS: 72129; 99283; Q9967

== ENCOUNTER 2019-04-27 06:53 | Inpatient (IN) | payer OTHER ==
[~2019-04-27] VITALS: Ht 170.2 cm; Wt 84.0 kg
[~2019-04-27 06:53] MED LIST changes: +IMITREX25 MG PO; +LYRICA50 MG PO; +NORCO 7.5-3251 EACH PO; +SUBOXONE 8 MG-1 EAC1 SL
--- NOTE | 2019-04-27 11:04 | PR ---
[facility] [address] [facility] [place], [place] [address] Signed Progress Notes IP Datetime Report Generated by ANDRE: 04/27/2019 11:04 PROGRESS NOTES: [id number] Impression: Normal progression of labor Procedures: Artificial ROM; Sterile Vag Exam Plan: Continue present management Informed Consent Obtain: Vaginal Delivery; Induction of Labor; Risks, Benefits and Alternatives Discussed VITAL SIGNS: [id number] Vital Signs: Reviewed; Within Normal Limits EXAM: [id number] Dilatation: 4.0 Effacement: 50 Station: -2 Uterine Contractions: q 1 to 5 min MEMBRANES: [id number] Membrane Status: Intact ROM Note: AROM with large amount of clear fluid Comments: Progressing. Will continue. Fetus A: [id number] FHR Baseline: 140 Variability: Moderate 6-25bpm Accelerations: 15X15 Decelerations: None FHR Category: Category I Presentation: Vertex Comments on Fetus A: No evidence of metabolic acidosis Fetus B: [id number] Signing Physician: Sahara Velasco MD Copies: ~ *Electronically Signed* 04/27/19 1104 SAHARA VELASCO MD PATIENT NAME: VIOLA RODRIGUEZ PROGRESS NOTE DATE OF : 89 PHYSICIAN: SAHARA VELASCO MD RPT #: [id number] REPORT IS CONFIDENTIAL AND NOT TO BE RELEASED WITHOUT AUTHORIZATION
--- NOTE | 2019-04-27 12:57 | PR ---
[facility] [address] [facility] [place], [place] [address] Signed Progress Notes IP Datetime Report Generated by ANDRE: 04/27/2019 12:57 PROGRESS NOTES: [id number] Impression: Normal progression of labor Procedures: Sterile Vag Exam Plan: Continue present management Informed Consent Obtain: Vaginal Delivery; Induction of Labor; Risks, Benefits and Alternatives Discussed VITAL SIGNS: [id number] Vital Signs: Reviewed; Within Normal Limits EXAM: [id number] Dilatation: 6.0 Effacement: 80 Station: -1 Uterine Contractions: q 1 to 3 min MEMBRANES: [id number] Membrane Status: Intact ROM Note: AROM with large amount of clear fluid Comments: Progressing. Will continue present management. Fetus A: [id number] FHR Baseline: 145 Variability: Moderate 6-25bpm Accelerations: 15X15 Decelerations: Variable FHR Category: Category II Presentation: Vertex Comments on Fetus A: reassuring overall with variability Fetus B: [id number] Signing Physician: Sahara Velasco MD Copies: ~ *Electronically Signed* 04/27/19 1257 SAHARA VELASCO MD PATIENT NAME: VIOLA RODRIGUEZAE PROGRESS NOTE DATE OF : 92 PHYSICIAN: SAHARA VELASCO MD RPT #: [id number] REPORT IS CONFIDENTIAL AND NOT TO BE RELEASED WITHOUT AUTHORIZATION
--- NOTE | 2019-04-27 13:36 | PR ---
[facility] [address] [facility] [place], [place] [address] Signed Progress Notes IP Datetime Report Generated by CPCarl: 04/27/2019 13:36 PROGRESS NOTES: [id number] Impression: Normal progression of labor Procedures: Sterile Vag Exam Plan: Continue present management Informed Consent Obtain: Vaginal Delivery; Induction of Labor; Risks, Benefits and Alternatives Discussed VITAL SIGNS: [id number] Vital Signs: Reviewed; Within Normal Limits EXAM: [id number] Dilatation: 8.0 Effacement: 80 Station: -1 Uterine Contractions: q 2 to 3 min MEMBRANES: [id number] Membrane Status: Intact ROM Note: AROM with large amount of clear fluid Comments: Progressing but cervix not reducible at this time. Will continue with position changes. Fetus A: [id number] FHR Baseline: 145 Variability: Moderate 6-25bpm Accelerations: 10X10 Decelerations: Variable FHR Category: Category II Presentation: Vertex Comments on Fetus A: overall reassuring Fetus B: [id number] Signing Physician: Sahara Velasco MD Copies: ~ *Electronically Signed* 04/27/19 1336 SAHARA VELASCO MD PATIENT NAME: VIOLA RODRIGUEZ PROGRESS NOTE DATE OF : 92 PHYSICIAN: SAHARA VELASCO MD RPT #: [id number] REPORT IS CONFIDENTIAL AND NOT TO BE RELEASED WITHOUT AUTHORIZATION
--- NOTE | 2019-04-27 13:50 | PR ---
[facility] [address] [facility] [place], [place] [address] Signed Progress Notes IP Datetime Report Generated by CPCarl: 04/27/2019 13:50 PROGRESS NOTES: [id number] Impression: Normal progression of labor Procedures: Sterile Vag Exam Plan: Continue present management Informed Consent Obtain: Vaginal Delivery; Induction of Labor; Risks, Benefits and Alternatives Discussed VITAL SIGNS: [id number] Vital Signs: Reviewed; Within Normal Limits EXAM: [id number] Dilatation: 9.0 Effacement: 80 Station: -1 Uterine Contractions: q 1 to 3 min MEMBRANES: [id number] Membrane Status: Intact ROM Note: AROM with large amount of clear fluid Comments: Progressing. Will continue. Fetus A: [id number] FHR Baseline: 140 Variability: Moderate 6-25bpm Accelerations: 15X15 Decelerations: Variable FHR Category: Category II Presentation: Vertex Comments on Fetus A: overall reassuring and progressing well Fetus B: [id number] Signing Physician: Sahara Velasco MD Copies: ~ *Electronically Signed* 04/27/19 1350 SAHARA VELASCO MD PATIENT NAME: VIOLA RODRIGUEZ PROGRESS NOTE DATE OF : 92 PHYSICIAN: SAHARA VELASCO MD RPT #: [id number] REPORT IS CONFIDENTIAL AND NOT TO BE RELEASED WITHOUT AUTHORIZATION
--- NOTE | 2019-04-28 12:44 | PR ---
[facility] [address] [facility] [place], [place] [address] Signed PP Progress Notes Datetime Report Generated by CPN: 04/28/2019 12:44 SUBJECTIVE: [id number] Pain: Within normal limits Nausea/Vomiting: Denies Vital Signs: [id number] Vital Signs: Reviewed; Within Normal Limits EXAM: [id number] Cardiovascular: Not Done Respiratory: Not Done Abdomen/Uterus: Abnormal Lochia: Normal Vulva/Perineum: Not Done Breasts: Not Done CVA Tenderness: Not Done Extremities: Abnormal Incision: Not Applicable Progress: Not Applicable Exam Comments: Fundus firm, NT @ U-2. Area of superficial redness and tenderness over right inner arm IV site. No induration identified. H/H 10.5/32.6, WBC 10.6, plat 183k IMPRESSION/PLAN/PROCEDURES: [id number] Impression: Normal progression Other Impression: superficial, localized phlebitis from IV site Plan: Discharge Procedures: None Progress Notes: Doing well. There is superficial phlebitis from her IV site but appears self limited. Signing Physician: Sahara Velasco MD Copies: ~ *Electronically Signed* 04/28/19 1244 SAHARA VELASCO MD PATIENT NAME: VIOLA RODRIGUEZ PROGRESS NOTE DATE OF : 92 PHYSICIAN: SAHARA VELASCO MD RPT #: [id number] REPORT IS CONFIDENTIAL AND NOT TO BE RELEASED WITHOUT AUTHORIZATION
== END 2019-04-28 15:20 | disposition home or self-care (01) | DRG 806 ==
LOC: FBC 06:53
PROVIDERS: ADMIT Obstetrics & Gynecology
PROC: 10E0XZZ Delivery of Products of Conception, External Approach (ICD-10-PCS; principal; 2019-04-27)
PROC: 0UQMXZZ Repair Vulva, External Approach (ICD-10-PCS; 2019-04-27)
PROC: 10907ZC Drainage of Amniotic Fluid, Therapeutic from Products of Conception, Via Natural or Artificial Opening (ICD-10-PCS; 2019-04-27)
PROC: 3E0P7VZ Introduction of Hormone into Female Reproductive, Via Natural or Artificial Opening (ICD-10-PCS; 2019-04-27)
DX: O76 Abnormality in fetal heart rate and rhythm complicating labor and delivery (principal); O87.0 Superficial thrombophlebitis in the puerperium; Z37.0 Single live birth; O99.354 Diseases of the nervous system complicating childbirth; O71.82 Other specified trauma to perineum and vulva; Z3A.39 39 weeks gestation of pregnancy; O99.89 Other specified diseases and conditions complicating pregnancy, childbirth and the puerperium; M54.16 Radiculopathy, lumbar region; G89.4 Chronic pain syndrome; G43.909 Migraine, unspecified, not intractable, without status migrainosus; Z88.4 Allergy status to anesthetic agent; Z88.1 Allergy status to other antibiotic agents; Z88.5 Allergy status to narcotic agent; Z88.0 Allergy status to penicillin
CPT/HCPCS: 36415; 85027; J2590; J7120